=== PATIENT | male | born 1965 | race Caucasian/White ===

== ENCOUNTER 2022-07-26 20:25 | Outpatient (CLI) | payer MEDICARE, SELFPAY | END 2022-07-26 20:26 | disposition home or self-care (01) | LOC: SLEEP 20:29 | PROVIDERS: Visit Provider Internal Medicine | DX: G47.33 Obstructive sleep apnea (adult) (pediatric) (principal) | CPT/HCPCS: 95811 ==

== ENCOUNTER 2024-02-23 10:47 | Outpatient (CLI) | payer MEDICARE, SELFPAY ==
[2024-02-23 11:30] LABS: Hematocrit 37.6 % (37.0-53.0); Mean Corpuscular HGB Conc 32 gm/dL (32-36); Mean Corpuscular Hemoglobin 29 pg (26-34); Mean Corpuscular Volume 92 fL (80-100); Platelet Count* 401 K/uL (140-440)
[2024-02-23 11:34] LABS: Slide Review Reflex No
== END 2024-02-23 10:48 | disposition home or self-care (01) ==
PROVIDERS: PCP Family Medicine; Visit Provider Family Medicine
DX: D68.61 Antiphospholipid syndrome (principal); I26.99 Other pulmonary embolism without acute cor pulmonale; Z79.01 Long term (current) use of anticoagulants
CPT/HCPCS: 36415; 85027

== ENCOUNTER 2024-06-22 15:42 | Outpatient (CLI) | payer MEDICARE, SELFPAY | END 2024-06-22 15:43 | disposition home or self-care (01) | LOC: AMB 07-05 09:04 | PROVIDERS: PCP Family Medicine; Visit Provider Internal Medicine | DX: S01.91XA Laceration without foreign body of unspecified part of head, initial encounter (principal); W26.9XXA Contact with unspecified sharp object(s), initial encounter; Y93.89 Activity, other specified; Y92.039 Unspecified place in apartment as the place of occurrence of the external cause | CPT/HCPCS: A0425; A0429 ==

== ENCOUNTER 2024-06-22 15:59 | Emergency (ER) | payer MEDICARE, SELFPAY ==
--- OUTSIDE RECORDS SUMMARY | 2024-06-22 16:01 | XMS_ITS | Patient Health Record ---
Author Organization [facility] Address [address] [place] [address] [address] [place] [address] Care Team Providers Care Injection Press Operator Name Role Phone Trang Escamilla Primary Care Provider Surya Jimenez Unavailable [phone] Alie SCALES, [facility] Unavailable Unavailable Allergies No Known Allergies Reason For Referral No Information Medications Medication SIG (Take, Route, Fr equency, Duration) Notes Start Date End Date Status Gabapentin 300 MG 2 capsules Orally Th ree times a day Active Lisinopril Active Warfarin Sodium Acti ve Aspirin Active Social History Tobacco Use: Social History Observation Description Date Details (start date - stop date) Never Smoker NA - NA Tobacco Use/Smoking: Question Answer Notes Are you a nonsmoker Alcohol Screen Question Answer Notes Did you have a drink containing alcohol in the p ast year? No Points 0 Interpretation Negative Problems Problem Type SNOMED Code ICD Code Onset Dates Problem Status W/U Status Risk Notes Problem Chronic pain (64489870) Other chronic pain (G89.29) Active confirmed Problem Lumbar radiculopathy (684408794) Radiculopath y, lumbar region (M54.16) Active confirmed Plan Of Treatment No Information Insurance Providers Payer Name Payer Address Payer Phone Subscriber Number Group Number Insured Name Patient Relationship to Insured Coverage Start Date Coverage End Date Medicare Part [employer] 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
--- OUTSIDE RECORDS SUMMARY | 2024-06-22 16:01 | XMS_ITS | Data Portability ---
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 I reviewed the reason for visit, goals to achieve, medical and personal history, as well as performing a physical examination. This is documented in the electronic health record. I reviewed the pathophysiology of the sleep apnea disorder, potential contributing and risk factors as well as treatment options to address their complaints. I reviewed their most current sleep study documentation. I also reviewed treatment options to address obstructive sleep apnea with an oral appliance and self-management strategies to improve sleep. We touched on CPAP use and focused on the benefits of an oral appliance to supplement the CPAP. Given the severity of the sleep apnea, I do believe that an oral appliance is reasonable treatment option that will improve her obstructive sleep apnea and snoring. Today, we discussed risks and benefits of oral appliances. Informed consent and cost of care was reviewed both verbally and in written form. We did begin the fabrication process today for a custom fit Dorsal oral sleep appliance. [email or web address] Not available 12/06/2022 09:41:53 01/13/2023 01/13/2023 Patient was seen today for follow-up and insertion of a mandibular advancement (Somnomed [place] Advanced Elite) intraoral appliance. Diagnosis and contributing factors were reviewed. Questions were answered. Self-management and home exercise techniques were reviewed. Today the intraoral appliance was fit to patient comfort. Specifically, no adjustments were necessary. A morning transcribing machine operator was fabricated today and instructions of use discussed in detail. Kan will monitor sleep quality and daytime energy levels over the next few weeks. I recommended follow up in 5 weeks after his trip. I discussed that it may be reasonable to obtain a panoramic imaging in follow up to evaluate the dento-osseous structures. A panoramic imaging will be obtained in follow up. Instructions on proper use and care were discussed/reviewed both written and verbally. I suggested that (s)he uses the appliance 20-30 minutes before bed time, as a way to promote nasal breathing if possible. Potential side effects were reviewed. The patient was advised to discontinue oral appliance use should they experience untoward side effects or be unable to return for follow-up care. The patient was advised to return in 4 weeks to reassess their progress and continue their treatment plan as previously outlined. History today was obtained from the patient. The patient has 3 diagnoses they would like to address. Their symptoms are unchanged. This case is moderate complexity because of limited diagnosis and chronic nature. Data reviewed included sleep study. Risk of complications include monitoring for complications of treatment were discussed. Today time spent may have included a review of past records, history taking, review of diagnoses, contributing factors, treatment plan, diagnostic testing, prognosis, expectations, risks and complications of treatment/no treatment, discussions with other providers and completing documentation was 35 minutes. Not available 01/15/2023 07:47:32 02/22/2023 02/22/2023 Today I reviewed the diagnosis, contributing factors and treatment options. I reviewed and reinforced continued use of self care and home exercises. I encouraged daily home care use which may consist of heat and ice compresses, oral habit reduction and relaxation techniques. The intraoral appliance was adjusted to patient comfort. Specifically the device was titrated 20 turns on each side. At this position the appliance is still 1 mm behind edge to edge position. I believe the appliance may need further titration before treatment is optimised. The appliance has midline aligned at this position. Kan will continue to monitor sleep quality, jaw symptoms at this current position. I recommended to watch for dental symptoms like bite changes, teeth pain at this current position. The morning transcribing machine operator was checked for fit and comfort. I recommended regular use of the morning transcribing machine operator. If mouth breathing continues to be an issue, using elastics may be considered in follow up. We discussed follow up in 4-6 weeks or sooner if needed. History today was obtained from the patient. The patient has 3 diagnoses which we are addressing. Their symptoms are improving. This case is low complexity because of limited diagnoses and chronic nature. Risk of complications include monitoring for complications of treatment were discussed. Today time spent may have included a review of past records, history taking, review of diagnoses, contributing factors, treatment plan, diagnostic testing, prognosis, expectations, risks and complications of treatment/no treatment, discussions with other providers and completing documentation was 25 minutes. I suggested that (s)he return for follow-up care in 4-6 weeks. Not available 02/25/2023 16:36:13 03/23/2023 03/23/2023 Today I reviewed the diagnosis, contributing factors and treatment options. I reviewed and reinforced continued use of self care and home exercises. I encouraged daily home care use which may consist of heat and ice compresses, oral habit reduction and relaxation techniques. The intraoral appliance was adjusted to patient comfort. Specifically 20 turns titration was completed on both sides. The appliance is at 5 mm position on both sides. I recommended regular use of the morning transcribing machine operator. I reviewed the sleep study documentation with Kan today and believe that he may be close to treatment optimization. Due to improvement in dry mouth, I believe use of elastics may be deferred. Kan will monitor his sleep quality, number of awakenings, snoring and apneic episodes and daytime energy levels with the current titration. I recommended follow up in 4-6 weeks. History today was obtained from the patient. The patient has 3 diagnoses which we are addressing. Their symptoms are improving. This case is low complexity because of limited diagnoses and chronic nature. Risk of complications include monitoring for complications of treatment were discussed. Today time spent may have included a review of past records, history taking, review of diagnoses, contributing factors, treatment plan, diagnostic testing, prognosis, expectations, risks and complications of treatment/no treatment, discussions with other providers and completing documentation was 30 minutes. I suggested that (s)he return for follow-up care in 4-6 weeks. Not available 03/23/2023 11:52:21 05/11/2023 05/11/2023 Today I reviewed the diagnosis, contributing factors and treatment options. I reviewed and reinforced continued use of self care and home exercises. I encouraged daily home care use which may consist of heat and ice compresses, oral habit reduction and relaxation techniques. The intraoral appliance did not require additional adjustment based on patient report of sleep improvement. The appliance is at 5 mm position on both sides. No adjustments were made to the appliance today. Kan is effectively wearing a mandibular advancement oral appliance. No additional adjustments to the appliance are believed to be necessary as (s)he feels that the use of a mandibular advancement appliance has improved sleep quality, daytime tiredness and subjective report of snoring. At this time I've asked them to contact their sleep physician to consider updating a PSG/HST to objectively verify the effectiveness of the appliance. I've suggested that (s)he follow-up with me to review the results of the study and determine the need for additional appliance adjustment at that time. Should apnea be sufficiently resolved we will at that time begin a long--term follow-up schedule while we monitor for jaw symptoms and/or changes in occlusion. Kan agrees with the plan. History today was obtained from the patient. The patient has 3 diagnoses which we are addressing. Their symptoms are significantly improved. This case is moderate complexity because of multiple diagnoses with chronic symptoms. Risk of complications include monitoring for complications of treatment were discussed. Today time spent may have included a review of past records, history taking, review of diagnoses, contributing factors, treatment plan, diagnostic testing, prognosis, expectations, risks and complications of treatment/no treatment, discussions with other providers and completing documentation was 35 minutes. I suggested that (s)he return for follow-up care in 2-3 months. Not available 05/12/2023 22:28:23 Plan of Treatment Reminders Order Date Submit Date Provider Last Modified By Organization Details Last Modified Time Details Appointments None recorded. Lab None recorded. Referral sleep medicine referral - Please contact patient for a follow up sleep study with MAD 2022 023 [email or web address] 3 Usman Monreal MD, [address], [place], [address], 3 14:04:00 Procedures None recorded. Surgeries None recorded. Imaging XR, orthopantog deni 2022 023 [place], [address], [address], [place], [address], 3 07:55:28 Medication Orders None recorded. Patient TargetsNo targets recorded. Patient InstructionsNo instructions recorded. Reason for Referral Sleep Medicine Referral for Sleep apnea Kindly consider sleep study to evaluate effectiveness of MAD. Please contact patient for a follow up sleep study with MAD Referring Physician: Mimi Martinez, Pain Management, Encounter Date: 05/11/2023 Results Created Date Observation Date Name Description Value Unit Range Abnormal Flag Note LastModifiedBy Organization Detail LastModifiedTime 01/16/20 23 XR, ortho panto gram No observ ation record ed. [email or web address] [facility] [address], [place], [address], 01/15/2023 07:53:38 Result Notes None recorded. Problems Name Problem SNOMED Code Status Onset Date Resolution Date Notes Provider Name and Address Organization Details Recorded Time Sleep apnea 61880300 Active 2022 AHI 7, RDI 11.4 lowest O2 desaturat ion 79% per split-nig ht PSG 3 MIMI MARTINEZ BDS,MS [address], [place], [address], 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 3 07:48:41 Problem Notes None recorded. Procedures Surgical History Date Name Laterality Status Provider Name and Address Organization Details Recorded Time 01/14/20 23 Oral appliance therapy for sleep apnea [facility] 01/13/2023 10:39:08 06/13/19 18 excision of vein [facility] 12/06/2022 12:49:37 06/13/19 18 grafting of vein with patch [facility] 12/06/2022 12:51:13 06/13/19 16 replacement of extracranial ventricular shunt [facility] 12/06/2022 12:52:22 06/13/19 14 Amputation of lower leg [facility] 12/06/2022 12:49:04 Imaging Results Imaging Date Name Status LastModified by Organization Details LastModified Time 01/15/2023 XR, orthopantogram completed [place] [address], [place], [address], 01/15/2023 07:53:38 Procedure Notes None recorded. Medical Equipment None Reported. Allergies Allergen ID Allergen Name Allergen Category Reaction Reaction Severity Criticality Documentation Date Start Date Code Code System Note Provider Name and Address Organization Details Recorded Time 79434 aspirin medicatio n Not available Not available Not available 12/06/2022 1191 RxNorm Sania Tenoriocristian [facility] 3 12:42:10 97830 lisinopri l medicatio n Not available Not available Not available 02/22/2023 17609 RxNorm Mi Damico [facility] 3 11:12:23 Medications Name Sig Start Date Stop Date Status Note LastModified by Organization Details LastModified Time atorvastatin 40 mg tablet active Not Available Not Available Not Available warfarin 7.5 mg tablet active Not Available Not Available Not Available azathioprine 50 mg tablet active Not Available Not Available Not Available clopidogrel 75 mg tablet active Not Available Not Available Not Available famotidine 20 mg tablet active Not Available Not Available Not Available metformin 1,000 mg tablet active Not Available Not Available Not Available warfarin 5 mg tablet active Not Available Not Available Not Available gabapentin 300 mg capsule active Not Available Not Available Not Available hydrochlorothiazide 25 mg tablet active Not Available Not Available Not Available hydroxychloroquine 200 mg tablet active Not Available Not Availabl e Not Available enoxaparin 80 mg/0.8 mL subcutaneous syringe active Not Available Not Available Not Available fenofibrate nanocrystallized 145 mg tablet active Not Available Not Availabl e Not Available Jardiance 10 mg tablet active Not Available Not Available Not Available Vitals Date Recorded Body height Provider Name an d Address Organization Details Last Updated DateTime 03/23/2023 165.1 cm Jose Dunn [facility] 03/23/2023 11:00:28 Date Recorded Body height Heart rate Systolic blood pressure Diastolic blood pressure Provider Name and Address Organization Details Last Updated DateTime 05/11/2023 165.1 cm 47 /min 143 mm[Hg] 81 mm[Hg] Sania Robertson [facility] 05/11/2023 11:02:56 Date Recorded Body height Body mass index (BMI) Body weight Heart rate Systolic blood pressure Diastolic blood pressure Provider Name and Address Organization Details Last Updated DateTime 3 165.1 cm 31.6 kg/m2 82173.5 5 g 89 /min 149 mm[Hg] 88 mm[Hg] Sania Robertson [facility] 3 12:42:59 Date Recorded Body height Heart rate Systolic blood pressure Diastolic blood pressure Provider Name and Address Organization Details Last Updated DateTime 01/13/2023 165.1 cm 86 /min 120 mm[Hg] 82 mm[Hg] Sania Robertson [facility] 01/13/2023 10:38:08 Date Recorded Body height Body mass index (BMI) Body weight Heart rate Systolic blood pressure Diastolic blood pressure Provider Name and Address Organization Details Last Updated DateTime 3 165.1 cm 31.6 kg/m2 71875.5 5 g 57 /min 151 mm[Hg] 90 mm[Hg] Mi Damico [facility] 3 11:11:48 Social History Question Answer Notes LastModified by Organizat ion Details LastModified Time Tobacco Smoking Status Never Smoker Sania Bensonquyen [place], [place] - [facility] 12/06/2022 12:47:48 What Is Your Level Of Alcohol Consumption? None [email or web address] Information not available 12/06/2022 What Is Your Level Of Caffeine Consumption? Occasional Information not available 12/06/2022 Are You Currently Employed? No Disabled [email or web address] Information not available 12/06/2022 What Type Of Diet Are You Following? REGULAR [email or web address] Information not available 12/06/2022 What Is Your Relationship Status? [email or web address] Information not available 12/06/2022 Sex: Unknown Functional Status Question Answer Note LastModified by Organizat ion Details LastModified Time What is your exercise level? Occasional [email or web address] Information not available 12/06/2022 Mental Status None recorded. Family History Relationship Description Onset Age of this Age Resolved Age Notes LastModified by Organization Details LastModified Time Father Sleep apnea [email or web address] Not avail able 12/06/2022 13:24:43 Mother Arthritis [email or web address] Not availab le 12/06/2022 13:25:01 Mother Diabetes mellitus [email or web address] Not available 2022 13:25:09 Mother Heart disease Not available 2022 13:25:21 Medical History Condition Response Coronary Artery Disease N Gout N Other N Chronic fatigue syndrome N Hyperthyroidism N Premenstrual syndrome (PMS) N MRSA N Head Trauma/Injury N Emphysema N Irritable bowel syndrome N Glaucoma N Lung Disease N COPD N Hypothyroidism N Depression N Pneumonia N Pacemaker N Orthopedic Problems Y Obstructive Sleep Apnea Y Anxiety Disorder N Autoimmune disease Y Muscle, Joint, or Bone Problems Y Vision or Eye Problems N Arthritis Y Serious Illness or Injuries N Acid Reflux (GERD) Y Cancer N Stroke N Eating disorder N Neck Injury N Back Injury N High Cholesterol Y History of chemotherapy N Neurologic Disorder N Liver Disease N Organ Transplant N Rheumatoid Arthritis N Headaches N Fibromyalgia N Kidney Disease N Allergies/Hayfever Y Post traumatic stress disorder (PTSD) N Parkinson's Disease N Migraines N Thyroid Problems N Brain Tumors N Anemia Y Multiple Sclerosis N Immune System Disorder N Meningitis N Pancreatic disease N Heart Attack ([place]) N Stomach Ulcers N Back pain N Diabetes Y Bleeding Disorder N Seizures/Epilepsy N Sjogren's syndrome N Mental Health Concerns N Tuberculosis N AIDS/HIV N History of radiation therapy N Hyperlipidemia N Dementia N Asthma N Physical or sexual abuse N Substance Abuse N Peripheral Vascular Disease N Psoriasis N Reflux/GERD N Vertigo N Sleep Disorder Y GERD/Reflux N Aneurysm N Hepatitis N Heart Disease N Neuropathy Y Pulmonary Embolism N Hypertension Y Osteoporosis N Immunizations Vaccine Type Date Status Note Provider Nam e and Address Organization Details Recorded Time Influenza, [place] 03/13/2022 completed NONA Ferrari - [facility] 12/06/2022 13:28:19 Past Encounters Encounter ID Performer Location Encounter Start Date Encounter Closed Date Diagnosis/Indication Diagnosis SNOMED-CT Code Diagnosis ICD10 Code Diagnosis Note [id number] Efrem Negrete DDS, [place] [address] [place] [address] 12/06/2022 12:15:28 12/06/2022 14:44:51 Obstructive sleep apnea syndrome 50581080 G47.33 Snoring 73225638 R06.83 [id number] MIMI MARTINEZ BDS,MS [place] [address] [place] [address] 01/13/2023 10:09:23 01/13/2023 11:13:38 Sleep apnea 22739606 G47.33 AHI 7, RDI 11.4 lowest O2 desaturati on 79% per split-nigh t PSG 07/24/2022 Snoring 13286497 R06.83 Bilateral temporomandibular joint articular disc disorder 6554142388 0486654 M26.633 Bilateral TMJ disc displaceme nt per historyRul e out bilateral TMJ DJD [id number] MIMI MARTINEZ BDS,MS [place] [address] [place] [address] 02/22/2023 11:02:11 02/22/2023 11:42:04 Bilateral temporomandibular joint articular disc disorder 8996495584 8738039 M26.633 Bilateral TMJ disc displaceme nt per historyRul e out bilateral TMJ DJD Sleep apnea 66691229 G47 .33 AHI 7, RDI 11.4 lowest O2 desaturati on 79% per split-nigh t PSG 07/24/2022 Snoring 18427097 R06.83 [id number] ESAU AMEZCUAS,MS [place] [address] [place], [place] [address] 03/23/2023 10:51:59 03/23/2023 11:26:51 Bilateral temporomandibular joint articular disc disorder 3576891366 0302150 M26.633 Bilateral TMJ disc displaceme nt per historyRul e out bilateral TMJ DJD Snoring 83178896 R06.83 Sleep apnea 96612471 G47 .33 AHI 7, RDI 11.4 lowest O2 desaturati on 79% per split-nigh t PSG 07/24/2022 [id number] MIMI MARTINEZ BDS,[place] [address] [place] [address] 05/11/2023 10:53:56 05/11/2023 11:29:43 Sleep apnea 40389829 G47.33 AHI 7, RDI 11.4 lowest O2 desaturati on 79% per split-nigh t PSG 07/24/2022 Snoring 72793575 R06.83 Bilateral temporomandibular joint articular disc disorder 2625337163 2576199 M26.633 Bilateral TMJ disc displaceme nt per historyRul e out bilateral TMJ DJD Health Concerns Section Related Observation LastModified by Organization Detai ls LastModified Time None Recorded Concern Status LastModified by Organization Details LastModified Time None Recorded Advance Directives Directive None Recorded Payers Encounter Date Sequence Insurance Name Policy Number Policy Red[place] Covered Member ID [place] Member ID Guarantor Name 12/06/2022 1 [place] [employer] Christiano R Nerud [id number] 4 Christiano Nerud 01/13/2023 1 [place] [employer] Christiano R Nerud [id number] 4 Christiano Nerud 02/22/2023 1 [place] [employer] Christiano R Nerud [id number] 4 Christiano Nerud 03/23/2023 1 [place] [employer] Christiano R Nerud [id number] 4 Christiano Nerud 05/11/2023 1 [place] [employer] [facility] Christiano Johns [id number] 4 Christiano Johns Notes Date Note Type Note Provider Name and Address Organization Details Recorded Time 12/06/2022 text/html Sleep ApneaRepor sandrine bypatient.Severity/stat us:mild; severity of apnea: AHI=13; date of last [id number] 3; lowest oxygen saturation <79% 79 Onset/Timing:long standing; progressively worse over last 3years Prior Historyhypertension;fam celia history of sleep disorder temporomandibular joint symptoms(normal) pain in the jaw; not grinding teeth Interference:frequent sore throat;morning tiredness/fatigue;limit s daytime activities;loud snoring Context:lack of adequate sleep;recent weight gain (more than 10 pounds) Alleviating factors:nothing gives relief Aggravating factors:worse with excess fatigue; worse with certain sleeping positions Associated Symptoms:drip or drainage down throat from above;poor concentration Prior opinionpulmonology Prior Tests:home sleep study Prior Treatmentweight loss program Patient presents today for evaluation of the possible use of a mandibular advancement oral appliance to address their {{upper airway resistance mild obstructive sleep apnea* moderate obstructive sleep apnea severe obstructive sleep apnea}} {{and snoring*}}. Patient has {{previously not treated* trialed CPAP trialed CPAP and was unable to tolerate it trialed oral appliance therapy}}. Today their Austin Sleepiness Scale score was a {{0 1 2 3 4 5 6 7 8 9 1 0 11 12 13 14 15 16 17 18 19 20 21}}. The patient is predominantly a {{side* back stomach}} sleeper. There is {{no history of TMD related symptoms including jaw pain, jaw joint noises or difficulty with mouth opening* a known history of TMJ symptoms including jaw joint noises a known history of TMJ symptoms including jaw joint noises and jaw pain}}. There is {{no awareness* awareness}} of clenching and/or grinding of their teeth.Kan was referred by Dr. Monreal for his mild sleep apnea. Kan was diagnosed with Lupus in 2011 . Kan has noticed that he has had an issue with snoring for the last 5 years and has gotten worse the last 3 years, his also snores but her CAROL is untreated. Efrem Negrete DDS, MS [address] [facility] [address], [place], [address], [place] [facility] 12/06/2022 15:55:09 01/13/2023 text/html Sleep ApneaRepor sandrine bypatient.Severity/stat us:mild; severity of apnea: AHI=7; date of last [id number]; respiratory disturbance index (RDI)= 11.4; lowest oxygen saturation <79% 79 Onset/Timing:long standing; progressively worse over last 3years Prior Historyhypertension;fam celia history of sleep disorder temporomandibular joint symptoms(normal) pain in the jaw; not grinding teeth Interference:frequent sore throat;morning tiredness/fatigue;limit s daytime activities;loud snoring Context:lack of adequate sleep;recent weight gain (more than 10 pounds) Alleviating factors:relief with using pillows to prop up at night;no relief by changing position Aggravating factors:worse with excess fatigue; worse with certain sleeping positions Associated Symptoms:drip or drainage down throat from above;poor concentration Prior opinionpulmonology Prior Tests:home sleep study Prior Treatmentweight loss program Patient presents today for insertion of a {{mandibular stabilization maxillary stabilization repositio des mandibular advancement (Somnomed Trish Advanced Elite)* mandibular advancement (Somnomed Air/Dorsal) mandibular advancement (Somnomed [place]) Swati Elevate 9A Swati Elevate 4A Panthera Classic}} oral appliance. They note {{no changes in* improved worsening} } symptoms which along with prior data was reviewed, updated and documented in the patient history of present illness. (S)he describes {{compliance* partial compliance non-complian ce}} with home self care as previously recommended. Kan is Dr. Negrete's patient seeing Dr. Martinez for the first time for the insertion of sleep appliance. Kan has Mild CAROL with AHI 7/hr, RDI 11.4 per split-night PSG 07-26-2022 MIMI MARTINEZ BDS,MS [id number] [facility] [address], [place], [address], [place] [facility] 01/15/2023 07:55:32 02/22/2023 text/html Sleep ApneaRepor sandrine bypatient.Severity/stat us:mild; severity of apnea: AHI=7; date of last [id number] 3; respiratory disturbance index (RDI)= 11.4; lowest oxygen saturation <79% 79 Onset/Timing:long standing; progressively worse over last 3years Prior Historyhypertension;fam celia history of sleep disorder temporomandibular joint symptoms(normal) pain in the jaw; not grinding teeth Interference:morning tiredness/fatigue;limit s daytime activities;snoring with apnea Context:lack of adequate sleep Alleviating factors:relief with using pillows to prop up at night;no relief by changing position Aggravating factors:worse with excess fatigue; worse with certain sleeping positions Associated Symptoms:no morning headache; likelihood of falling asleep during the day while sitting and reading 0; likelihood of falling asleep during the day while sitting inactive in a public place 1; likelihood of falling asleep during the day as passenger in car for extended time 1; likelihood of falling asleep during the day while lying down to rest in the afternoon 2; likelihood of falling asleep during the day while sitting and talking to someone 0; likelihood of falling asleep during the day while sitting quietly after lunch (no alcohol) 1; likelihood of falling asleep during the day in a car while stopped in traffic 1 Prior opinionpulmonology Prior Tests:home sleep study Prior Treatmentweight loss program Patient presents today for follow-up. (S)he is {{effectively using* using struggling to use not using}} the mandibular advancement oral appliance. They note {{no changes in* improved worsening} } symptoms which along with prior data was reviewed, updated and documented in the patient history of present illness. Subjectively they believe the appliance to be {{very effective effective* pa rtially effective non-effective }} in improving sleep quality. (S)he recognizes {{improved* unchanged}} daytime tiredness and {{improvement* no improvement}} in restorative sleep. (S)he {{denies has mild* has significant}} side effects {{including jaw pain including bite changes including aggravation of a preexisting TMD dry mouth#}}. {{(S)he is using the morning bite transcribing machine operator as recommended* (S)he is not using the morning bite transcribing machine operator as recommended}}. Adjustments to the oral appliance are {{believed to be necessary* not felt necessary}}. Kan is present today for his first follow up with his CAROL Trish Advanced Elite. Kan presents today with his . He reports that he has noticed an improvement in sleep quality with the MAD. He has been using the appliance 100% of the nights in the last month. He denies adverse effects including jaw or tooth pain, bite changes etc. Kan reports that his has noticed an improvement with snoring although she can still hear him mildly snoring. Kan reports some improvement in daytime energy levels. He has been using the morning transcribing machine operator regularly up to 3 minutes on awakening. He wonders if he sleeps with his mouth open because of dry mouth on awakening. His Austin today is 4. Kan has Mild CAROL with AHI 7/hr, RDI 11.4 per split-night PSG 07-26-2022 MIMI MARTINEZ BDS,MS [address] [facility] [address], [place], [address], [facility] 02/25/2023 16:37:39 03/23/2023 text/html Sleep ApneaRepor sandrine bypatient.Severity/stat us:mild; severity of apnea: AHI=7; date of last [id number] 3; respiratory disturbance index (RDI)= 11.4; lowest oxygen saturation <79% 79 Onset/Timing:long standing; progressively worse over last 3years Prior Historyhypertension;fam celia history of sleep disorder temporomandibular joint symptoms(normal) pain in the jaw; not grinding teeth Interference:morning tiredness/fatigue;limit s daytime activities;snoring with apnea Context:lack of adequate sleep Alleviating factors:relief with using pillows to prop up at night;no relief by changing position Aggravating factors:worse with excess fatigue; worse with certain sleeping positions Associated Symptoms:no morning headache; likelihood of falling asleep during the day while sitting and reading 0; likelihood of falling asleep during the day while sitting inactive in a public place 1; likelihood of falling asleep during the day as passenger in car for extended time 1; likelihood of falling asleep during the day while lying down to rest in the afternoon 2; likelihood of falling asleep during the day while sitting and talking to someone 0; likelihood of falling asleep during the day while sitting quietly after lunch (no alcohol) 1; likelihood of falling asleep during the day in a car while stopped in traffic 1 Prior opinionpulmonology Prior Tests:home sleep study Prior Treatmentweight loss program Patient presents today for follow-up. (S)he is {{effectively using* using struggling to use not using}} the mandibular advancement oral appliance. They note {{no changes in improved* worsening} } symptoms which along with prior data was reviewed, updated and documented in the patient history of present illness. Subjectively they believe the appliance to be {{very effective effective* pa rtially effective non-effective }} in improving sleep quality. (S)he recognizes {{improved* unchanged}} daytime tiredness and {{improvement* no improvement}} in restorative sleep. (S)he {{denies* has mild has significant}} side effects {{including jaw pain* including bite changes including aggravation of a preexisting TMD}}. {{(S)he is using the morning bite transcribing machine operator as recommended* (S)he is not using the morning bite transcribing machine operator as recommended}}. Adjustments to the oral appliance are {{believed to be necessary not felt necessary*}}. Kan presents with his for follow up with [facility] for treatment of Obstructive sleep apnea. Kan reprots that he has been using the appliance regularly - 100% of the nights. He reports that he has noticed an improvement in sleep quality with the MAD. Kan reports that his has noticed an improvement with snoring although she can still hear him mildly snoring. Kan reports some improvement in daytime energy levels. He has been using the morning transcribing machine operator regularly up to 3 minutes on awakening. He denies adverse effects including jaw or tooth pain, bite changes etc. He reports dry mouth has improved since the last adjustment. He believes further adjustment of the appliance may be needed at this time.Austin score 8/24 Kan has Mild CAROL with AHI 7/hr, RDI 11.4 per split-night PSG 07-26-2022 MIMI MARTINEZ BDS,MS [id number] [facility] [address], [place], [address], [facility] 03/23/2023 11:53:09 05/11/2023 text/html Sleep ApneaRepor sandrine bypatient.Severity/stat us:mild; severity of apnea: AHI=7; date of last [id number] 3; respiratory disturbance index (RDI)= 11.4; lowest oxygen saturation <79% 79 Onset/Timing:long standing; progressively worse over last 3years Prior Historyhypertension;fam celia history of sleep disorder temporomandibular joint symptoms(normal) pain in the jaw; not grinding teeth Interference:morning tiredness/fatigue;limit s daytime activities;snoring with apnea Context:lack of adequate sleep Alleviating factors:relief with using pillows to prop up at night;no relief by changing position Aggravating factors:worse with excess fatigue; worse with certain sleeping positions Associated Symptoms:no morning headache; likelihood of falling asleep during the day while sitting and reading 0; likelihood of falling asleep during the day while sitting inactive in a public place 1; likelihood of falling asleep during the day as passenger in car for extended time 1; likelihood of falling asleep during the day while lying down to rest in the afternoon 2; likelihood of falling asleep during the day while sitting and talking to someone 0; likelihood of falling asleep during the day while sitting quietly after lunch (no alcohol) 1; likelihood of falling asleep during the day in a car while stopped in traffic 1 Prior opinionpulmonology Prior Tests:home sleep study Prior Treatmentweight loss program Patient presents today for follow-up. (S)he is {{effectively using* using struggling to use not using}} the mandibular advancement oral appliance. They note {{no changes in improved* worsening} } symptoms which along with prior data was reviewed, updated and documented in the patient history of present illness. Subjectively they believe the appliance to be {{very effective effective* pa rtially effective non-effective }} in improving sleep quality. (S)he recognizes {{improved* unchanged}} daytime tiredness and {{improvement* no improvement}} in restorative sleep. (S)he {{denies* has mild has significant}} side effects {{including jaw pain* including bite changes including aggravation of a preexisting TMD}}. {{(S)he is using the morning bite transcribing machine operator as recommended* (S)he is not using the morning bite transcribing machine operator as recommended}}. Adjustments to the oral appliance are {{believed to be necessary not felt necessary*}}. Kan is present today for his third follow up appointment since the delivery of his sleep apnea appliance ([place]). He reports that he has been using the MAD 100% of the nights. He reports an improvement in sleep quality since the last adjustment. Kan reports good daytime energy levels. reports that he has not been snoring since the last adjustment. He believes that the treatment is optimised at this time. Kan denies jaw pain, headaches or bite changes. He denies upcoming dental treatments. Austin score 8/24. Kan has Mild CAROL with AHI 7/hr, RDI 11.4 per split-night PSG 07-26-2022 MIMI MARTINEZ BDS,MS [id number] [facility] [address], [place], [address], [facility] 05/12/2023 22:29:17
--- OUTSIDE RECORDS SUMMARY | 2024-06-22 16:02 | XMS_ITS | Clinical Summary ---
Author Organization [employer] [facility] Address [place], [place] [address] Care Team Providers Care Biofuels Production Technician Name Role Phone Henry Mckeon MD Unavailable [phone] Other-None Unavailable Unavailable Jose Flower MD Unavailable [phone] Emmanuel Foy MD Unavailable Unavailable Christiano Jerome OD Unavailable [phone] Dg Del Castillo MD Unavailable [phone] Truong Carpio MD Primary Care Provider + Allergies Active Allergy Reactions Criticality Noted Date Comments Lisinopril Angioedema Medium 04/28/2012 Medications Calcium carbonate (OYSTERSHELL CALCIUM) 500 mg tablet Take 500 mg by mouth 2 times daily with meals. Active NATURAL SENIOR SUSTAINABILITY ADVISOR MULTIVITAMIN ORAL Take 1 tablet by mouth once daily in the evening. Active cholecalciferol (VITAMIN D) 1,000 unit capsule Take 1 capsule by mouth once daily. 0 11/08/19 14 Active glucose 4 g chewable tablet Take 4 g by mouth each time if needed for Blood Gluc < 60 g/dL. Active cyanocobalamin (VITAMIN B-12) 1,000 mcg tablet Take 1,000 mcg by mouth once daily. Active acetaminophen (TYLENOL EXTRA STRENGTH) 500 mg tablet Take 500 mg by mouth 4 times daily if needed. Max acetaminophen dose: 4000mg in 24 hrs. Active omeprazole (PRILOSEC) 20 mg Delayed-Release capsule Take 20 mg by mouth before breakfast. Active medication order composerIndications :Status post below-knee amputation of left lower extremity (HC) Wheelchair Replacement part: 2 front wheel Casters 2 inch diameter 1 unit 04/06/20 19 Active wheelchairIndicatio ns:Status post below-knee amputation of left lower extremity (HC) Wheelchair: Manual Wheelchair: Patient continues to need to use daily his manual wheelchair and the wheelchair will continue to need repairs for the next 12 months 1 Device 04/16/20 19 Active Cwbdu-2-YOX-EPA-Fis h Oil 1,000 mg (120 mg-180 mg) capIndications:Dysl ipidemia Take 1 capsule by mouth 2 times daily. 0 06/14/19 20 Active medication order composerIndications :Type 2 diabetes mellitus with diabetic neuropathy, without long-term current use of insulin (HC),Diabetic peripheral neuropathy (HC) Diabetic shoes Dl Orthotics and Prosthetics . 2 Each 07/22/19 22 Active atorvastatin (LIPITOR) 40 mg tabletIndications:D yslipidemia,PAD (peripheral artery disease) (HC) Take 1 Tablet (40 mg) by mouth at bedtime. 90 Tablet 3 09/28/19 24 Active clopidogreL (PLAVIX) 75 mg tabletIndications:P AD (peripheral artery disease) (HC) Take 1 Tablet (75 mg) by mouth once daily. 90 Tablet 3 09/28/19 24 Active FreeStyle Eve 3 Sensor for continuous blood glucose monitor (CGM)Indications:Ty pe 2 diabetes mellitus with diabetic neuropathy, without long-term current use of insulin (HC) To be used to read blood sugars, follow crisis intervention counselor directions. 6 Each 3 10/25/19 24 Active hydroxychloroquine (PLAQUENIL) 200 mg tabletIndications:S ystemic lupus erythematosus, unspecified SLE type, unspecified organ involvement status (HC) Take 1 Tablet (200 mg) by mouth once daily. 90 Tablet 1 12/01/19 24 Active azaTHIOprine (IMURAN) 50 mg tabletIndications:S ystemic lupus erythematosus, unspecified SLE type, unspecified organ involvement status (HC) TAKE 1 AND 1/2 TABLETS (75 MG) BY MOUTH ONCE DAILY IN THE MORNING. 135 Tablet 03/13/20 24 Active gabapentin (NEURONTIN) 300 mg capsuleIndications: Diabetic peripheral neuropathy (HC) Take 2-3 Capsules (600-900 mg) by mouth three times daily. Take 2 capsules in the morning, 2 capsule in the afternoon, and 3 capsules at bedtime 630 Capsule 3 04/25/20 24 Active famotidine (PEPCID) 20 mg tabletIndications:G astroesophageal reflux disease without esophagitis Take 1 Tablet (20 mg) by mouth at bedtime. 90 Tablet 3 04/25/20 24 Active fenofibrate nanocrystallized (TRICOR) 145 mg tabletIndications:D yslipidemia Take 1 Tablet (145 mg) by mouth once daily with a meal. 90 Tablet 3 04/25/20 24 Active hydroCHLOROthiazide 25 mg tabletIndications:E ssential hypertension Take 1 Tablet (25 mg) by mouth once daily. 90 Tablet 3 04/25/20 24 Active metFORMIN (GLUCOPHAGE) 1,000 mg tabletIndications:T ype 2 diabetes mellitus with diabetic neuropathy, without long-term current use of insulin (HC) Take 1 Tablet (1,000 mg) by mouth two times daily with meals. 180 Tablet 3 04/25/20 24 Active oxybutynin XL (DITROPAN XL) 5 mg CR tabletIndications:U rge incontinence Take 1 Tablet (5 mg) by mouth once daily. 30 Tablet 11 04/25/20 24 Active warfarin (COUMADIN) 5 mg tabletIndications:A nti-phospholipid syndrome (HC),Pulmonary embolism on left (HC),Anticoagulatio n monitoring, INR range 2-3,Acute deep vein thrombosis (DVT) of popliteal vein of right lower extremity (HC),Chronic atrial fibrillation (HC) Take by mouth 5 mg (5 mg x 1) every day in the evening OR as directed 91 Tablet 05/14/20 24 Active Active Problems Problem Noted Date Diagnosed Date History of DVT (deep vein thrombosis) 09/28/2023 Overview (09/28/2023): Right 07/1011 Congenital hydrocephalus 09/28/2023 Plantar fasciitis of right foot 09/28/2023 CAROL 07/26/2022 AHI- 7 08/31/2022 S/P ventriculoperitoneal shunt 03/16/2018 Overview (03/16/2018): 12/28/2013 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 Oxycodone 10mg #60 per month. Diagnosis: Below the knee amputation and in physical therapy. Pharmacy [facility]. Trang Escamilla DO .................... 11/14/2013 9:44 PM Anticoagulation monitoring, INR range 2-3 2013 GERD (gastroesophageal reflux disease) 4 Leukopenia 05/31/2013 Overview (09/12/2014): Chronic leukopenia and anemia from SLE ACP (advance care planning) 05/24/2013 Overview (05/24/2013): Patient has identified Health Care Agent(s): Yes Add Health Care Agents: Yes Health Care Agent(s): Primary Health Care Agent: Gosia Yo Relationship: sister Secondary Health Care Agent: Relationship: Phone: Conservator: Relationship: Phone: Guardian: Relationship: Phone: Patient has Advance Care Plan Documents (Health Care Directive, POLST): No, Pt has forms at home, yet to be completed. Patient has identified Specific Treatment Preferences: No Specific limits to treatment preferences NOT identified: ASSUME FULL TREATMENT. Pressure ulcer-right buttock 05/15/2013 PAD (peripheral artery disease) 05/15/2013 Overview (12/12/2017): 12/06/2017- Right femoral to above-knee popliteal artery bypass using reversed great saphenous vein, left lower extremity saphenous vein harvest. Dr. 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 Anti-phospholipid syndrome 09/28/2011 Overview (10/25/2013): Seen Hematology. Coumadin indefinitely. Systemic lupus erythematosus 08/03/2011 Overview (05/17/2012): Positive SIMÓN and anti DNA, lupus anticoagulant, PE and DVT 07/2011 Visual field defect, unspecified 07/23/2008 Resolved Problems Problem Noted Date Diagnosed Date Resolved Date Chronic atrial fibrillation 07/22/2021 02/14/2024 Somnolence 12/27/2013 01/10/2014 Encephalopathy acute 12/27/2013 014 Issue of repeat prescription 11/14/2013 11/14/2013 S/P debridement 08/13/2013 12/27/2013 Overview (08/13/2013): Left bka stump 08/13/2012 Gangrenous left foot s/p left BKA 07/03/2013 12/27/2013 Ischemia of toe 05/31/2013 12/27/2013 Diabetic foot ulcer 04/25/2013 12/24/19 16 Venous stasis 04/18/2012 12/24/2015 Overview (04/18/2012): Right > left. DVT and systemic causes ruled out. Compression stockings recommended. Encounter for long-term (cur rent) use of anticoagulants 08/01/2011 10/31/2013 Pulmonary embolism 07/31/2011 4 DVT of popliteal vein 07/31/20112013 Overview (07/31/2011): Right 07/1011 Acute deep vein thrombosis ( DVT) of popliteal vein of right lower extremity 07/31/2011 09/28/2023 Overview (12/19/2014): Right 07/1011 Shortness of breath 07/28/2011 12/28/19 14 Overview (07/28/2011): D dimer elevated Tachycardia 07/28/2011 12/27/2013 Abnormal EKG 07/28/2011 12/27/2013 Overview (07/28/2011): New t wave inversion II III AVF V4-6 07/28/2011 Abnormal liver function 07/28/201112/11 Overview (07/28/2011): New elevation of alk phos Pericarditis 07/11/2011 12/27/2013 Atelectasis 07/07/2011 12/27/2013 Chest pain, unspecified 07/05/201112/11 Overview (07/05/2011): Angiogram 07/05/2011 neg for acute Mi 205 stenosis Mid LAD 20% stenosis 1st diagonal EF 60% Pain in joint, lower leg 07/05/2011 Overview (07/05/2011): Left piraformis muscle pain taking ibufprofen 600 tid for 2 weeks Encounters Date Type Department Care Team Description 06/20/2024 10:30 AM BULB ASSEMBLER Orders Only [facility] [address] [place] [address] Lab, [facility] 06/20/2024 Anticoagulation (warfarin) [facility] [address] [place] [address] 1, [facility] Anticoagulation 06/20/2024 Travel 06/15/2024 Travel 06/07/2024 Telephone [facility] [address] [place] [address] DarrenteTruong gutierrez MD Form 06/07/2024 Telephone [facility] [address] [place] [address] Truong Carpio MD Form 05/18/2024 Anticoagulation (warfarin) [facility] [address] [place] [address] 1, [facility] Anticoagulation 05/17/2024 1:45 PM BULB ASSEMBLER Orders Only [facility] [address] [place] [address] Lab, [facility] Lab 05/16/2024 Travel 05/15/2024 Telephone [facility] [address] [place] [address] Truong Carpio MD 05/14/2024 Refill [facility] [address] [place] [address] Truong Carpio MD Refill Request (Warfarin) 05/12/2024 Travel 05/08/2024 Telephone [facility] [address] [place] [address] Truong Carpio MD Form (Authorization FOrm ) 04/26/2024 Telephone [facility] [address] [place] [address] Truong Carpio MD Form 04/25/2024 10:25 AM BULB ASSEMBLER Office Visit [facility] [address] [place] [address] Truong Carpio MD Hospital F/U (ANW, 03/16/24, vascular rt femoral); Diabetes; Immunization/Injectio n 04/25/2024 Telephone [facility] [address] [place] [address] Truong Carpio MD Anticoagulation (BPA fenofibrate/warfarin) 04/24/2024 Travel 04/24/2024 Telephone [facility] [address] [place] [address] Truong Carpio MD 04/23/[address] [facility] [address] [place] [address] Oetken, Trang Mesha, DO Form (INCIDENT REPORT) 04/19/2024 Telephone [facility] [address] [place] [address] Truong Carpio MD 04/18/2024 Anticoagulation (warfarin) [facility] [address] [place] [address] 1, [facility] Anticoagulation 04/17/2024 3:00 PM BULB ASSEMBLER Orders Only [facility] [address] [place] [address] Lab, [facility] 04/17/2024 Travel 04/14/2024 Travel 04/13/2024 Telephone [facility] [address] [place] [address] Truong Carpio MD Anticoagulation (Lab Orders ) 04/09/2024 11:00 AM CDT Office [place] [facility] [address] [place] [address] Luke Collado MD CV Vascular Est (1 month follow up; right fem above knee popliteal bypass with PTFE. U/S scheduled prior) 04/09/2024 9:18 AM CDT - 04/09/2024 11:59 PM CDT Hospital Encounter [facility] [address] [place] [address] Luke Collado MD [facility] PAD (peripheral artery disease) (HC) 04/08/2024 Travel 04/06/2024 Anticoagulation (warfarin) [facility] [address] [place] [address] 1, [facility] Anticoagulation 04/05/2024 9:45 AM CDT Orders Only [facility] [place] [address] [address] Lab, [facility] 04/05/2024 Travel 04/02/2024 Orders Only [facility] Scanner 1 scan: (1-Ord) [facility], INR, 04/02/2024 04/02/2024 Anticoagulation (warfarin) [facility] [address] [place] [address] 1, [facility] Anticoagulation (Chart update) 04/02/2024 Telephone [facility] [address] [facility] [place] [address] Truong Carpio MD Anticoagulation (Lab Clarification) 03/28/2024 Orders Only [facility] [address] [place] [address] Dg Del Castillo MD Lab (Order Update) 03/23/2024 Lab Requisition [facility] [phone] Sally Miner, SEED LABORATORY ASSISTANT from Last 3 Months Immunizations Name Administration Dates Next Due COVID-19 VACCINE SPIKEVAX (M ODERNA 50MCG/0.5ML) 12YO+ PFS 04/25/2024,09/28/2023,03/28/2023 COVID-19 vaccine (Moderna 100mcg/0.5mL) PF, MDV 09/18/2021,04/02/2021,08/06/2020,2020 COVID-19 vaccine (Moderna 50mcg/0.5mL) 12YO+ BIVALENT PF, MDV 05/28/2022 Hepatitis B (Adult) 04/19/2013,01/17/2013,2012 Human Papilloma Virus Vaccine 10/31/2013 INFLUENZA, IIV3 PF (AGE >= 6 MO) 04/25/2024 Influenza, IIV3 (Age >=3 years) 02/27/20 13,02/29/2012,03/24/2011,2009 Influenza, IIV4 02/22/2022,,02/14/2020,2017,03/17/2017,03/24/2016,02/19/2015,0 02/28/2014 Influenza, IIV4 (=>6mos) MDV 03/01/2019 Pneumococcal Poly,23-Valent (Pneumovax) 10/28/2011 Pneumococcal conj 13-Valent (Prevnar 13) 10/31/2013 Tdap 01/14/2022,10/28/2011 Tuberculin Skin Test, Unspecified 03/21/2024 Zoster (Shingrix-RZV, recombinant) 05/17/2018, Zoster (Zostavax-ZVL, live) 05/17/2018, 8 Family History Medical History Relation Name Comments Cancer Father d.59. unknown t ype Other Maternal Uncle LUPUS Diabetes Mother Hypertension Mother Other Mother arthritis/LUPUS Stroke Mother Relation Name Status Comments Father Maternal Uncle Mother Alive Social History Tobacco Use Types Packs/Day Years Used Date Smoking Tobacco: Never Passive Smoke Exposure: Past Smokeless Tobacco: Never Tobacco Cessation:Counseling Given: Yes Comments:Father smoked cigarettes Alcohol Use Standard Drinks/Week Comments No 0 (1 standard drink = 0.6 oz pur e alcohol) [facility] Utilities Answer Date Recorded Do you have trouble paying f or utilities (for example, heat, electricity, water, phone)? Yes 03/17/2024 PHQ-2 Answer Date Recorded PHQ-2 TOTAL SCORE 0 10/25/2023 Social Connections Answer Date Recorded Do you often feel lonely or isolated from those around you? 0 03/17/2024 Financial Resource Strain Answer Date R ecorded Difficulty of Paying Living Expenses 3 03/28/2023 Difficulty of Paying Living Expenses Not on file 03/28/2023 Food Insecurity Answer Date Recorded Do you worry your food will run out before you are able to buy more? 1 03/17/2024 Transportation Needs Answer Date Record ed Does lack of transportation keep you from medica l appointments? 1 03/17/2024 Does lack of transportation keep you from work, meetings or getting things that you need? 1 03/17/2024 Housing Stability Answer Date Recorded What is your housing situation today? 1 03/17/2024 Interpersonal Safety Answer Date Record ed Are you being hit, kicked, p ushed or yelled at (see row info)? No 03/17/2024 Interpersonal Safety Abuse 12 - 18 Not on file 03/17/2024 Interpersonal Safety Ambulatory Vulnerability No t on file 03/17/2024 Sex and Gender Information Value Date Recorded Sex Assigned at Male 11/21/2020 10:01 PM CDT Legal Sex Male 5:24 AM BULB ASSEMBLER Gender Identity Not on file Sexual Orientation Not on file Obstetrics History Last Filed Vital Signs Vital Sign Reading Time Taken Comments Blood Pressure 136/76 04/25/2024 10:20 AM BULB ASSEMBLER Pulse 78 04/25/2024 10:20 AM BULB ASSEMBLER Temperature 36.9 C (98.4 F) 04/25/2024 10:20 AM BULB ASSEMBLER Respiratory Rate 16 04/09/2024 10:23 AM CDT Oxygen Saturation 98% 04/25/2024 10:20 AM BULB ASSEMBLER Inhaled Oxygen Concentration - - Weight 89 kg (196 lb 3.4 oz) 03/20/2024 5:31 AM CDT Height 165.1 cm (5' 5) 03/16/2024 8:47 AM CDT Body Mass Index 32.65 03/16/2024 8:47 AM CDT Plan of Treatment Upcoming Encounters Date Type Department Care Team (Late st Contact Info) Description 06/28/2024 10:40 AM BULB ASSEMBLER Office Visit [facility] [address] [place], [place] [id number] Dg Del Csatillo MD [address] [facility] [address] [place] [address] 09/26/2024 10:25 AM CDT Office Visit [facility] [address] [place] [address] Truong Carpio MD [address] [place] [address] Health Maintenance Due Date Last Done Comments Pneumococcal series for age 50+ (3 of 3 - PCV20 or PCV21) 10/31/2018 10/31/2013, 10/28/2011 COVID-19 vaccine series ( season) 2024 04/25/2024, 09/28/2023, 03/28/2023, Additional history exists BMI (ht and wt on same day) for age 18+ 09/27/2024 09/28/2023, 08/23/2023, 09/27/2022, Additional history exists Depression screening for age 12+ 10/25/2024 10/26/2023, 10/26/2023, 10/25/2023, Additional history exists Fecal testing sDNA-FIT ([place] guard) for age 45-75 06/25/2025 06/25/2022 Lipids for age 45-75 09/27/2028 09/28/2023, 06/21/2022, 04/02/2021, Additional history exists Tetanus booster 01/15/2032 01/14/2022, 10/28/2011 HIV for age 15-65 Completed 07/03/2012 Hepatitis C screening for ag e 18-79 Completed 07/03/2012 Hepatitis B series for Diabetes Completed 04/19/2013, 01/17/2013, 10/16/2012 Zoster (shingles) series for age 50+ Completed 05/17/2018, 05/17/2018, 02/24/2018, Additional history exists Tdap Completed 01/14/2022, 10/28/2011 Influenza for age 50-64 Completed 04/25/20, 02/22/2022, 04/02/2021, Additional history exists Medical Devices Implanted Type Area Office Equipment Technician Device Identifier Shelf Expiration Date Model / Serial / Lot Shunt System 15cm Stra [id number] Nmtneuroscie - [id number] Implanted:Qty: 1 on 12/28/2013 at [facility] Right: [employer] Rita [id number]# / / [id number] Graft Vasc 6x40mm 60cm Propaten - [id number] Implanted:Qty: 1 on 03/16/2024 by Luke Collado MD at [facility] Right: [employer] 10/30/2026 [id number] / [id number] / Procedures Procedure Name Priority Date/Time Associated Diagnosis Comments PROTIME-INR Routine 06/20/2024 9:31 AM BULB ASSEMBLER Anti-phospholipid syndrome (HC) history of Pulmonary embolism Anticoagulation monitoring, INR range 2-3 PROTIME-INR Routine 05/17/2024 1:09 PM BULB ASSEMBLER Anti-phospholipid syndrome (HC) history of Pulmonary embolism Anticoagulation monitoring, INR range 2-3 UA W/ SEDIMENT EXAM REFLEXED PER CRITERIA Routine 04/25/2024 11:32 AM BULB ASSEMBLER Urge incontinence HEMOGLOBIN A1C MONITORING (POCT) Routine 04/25/2024 10:06 AM BULB ASSEMBLER Type 2 diabetes mellitus with diabetic neuropathy, without long-term current use of insulin (HC) PROTIME-INR Routine 04/17/2024 2:38 PM BULB ASSEMBLER Anti-phospholipid syndrome (HC) history of Pulmonary embolism Anticoagulation monitoring, INR range 2-3 US ARTERIAL LOWER EXTREMITY W ROMEO BILATERAL Routine 04/09/2024 10:22 AM CDT PAD (peripheral artery disease) (HC) PROTIME-INR Routine 04/05/2024 8:46 AM CDT Anti-phospholipid syndrome (HC) history of Pulmonary embolism Anticoagulation monitoring, INR range 2-3 Other specified transient cerebral ischemias Paroxysmal atrial fibrillation (HC) CBC WITH AUTO DIFFERENTIAL Routine 04/05/2024 8:46 AM CDT Systemic lupus erythematosus, unspecified SLE type, unspecified organ involvement status (HC) SCAN-LABORATORY REPORT 04/02/2024 12:00 AM CDT BASIC METABOLIC PANEL Routine 03/27/2024 8:17 AM CDT Anemia, unspecified Hypo-osmolality and hyponatremia HEMOGLOBIN Routine 03/27/2024 8:17 AM CDT Anemia, unspecified Hypo-osmolality and hyponatremia LIPID PANEL W REFLEX MEASURED LDL Routine 09/28/2023 10:07 AM CDT Dyslipidemia SDNA-FIT EXTERNAL (COLOGUARD) Routine 06/25/2022 7:30 AM BULB ASSEMBLER Screening for colon cancer EXPOSURE (BBF) RAPID HIV Routine 07/03/2012 2:24 PM BULB ASSEMBLER Needle Stick Injury EXPOSURE (BBF) ANTI HCV Routine 07/03/2012 2:24 PM BULB ASSEMBLER Needle Stick Injury from Last 3 Months or Most Recently Relevant to Health Maintenance Results * (ABNORMAL) PROTIME-INR [12922.0] - Standing Order (06/20/2024 9:31 AM BULB ASSEMBLER) Only the most recent of4 resultswithin the time period is included. INR 2.9(H) <1.3 06/20/2024 2:47 PM BULB ASSEMBLER [facility] PROTIME 34.0(H) 10.6 - 12.4 sec 06/20/2024 2:47 PM BULB ASSEMBLER [facility] Blood BLOOD SPECIMEN / Unknown [facility] / Unknown 06/20/2024 9:31 AM BULB ASSEMBLER 06/20/2024 9:31 AM BULB ASSEMBLER [facility] - 06/20/2024 2:47 PM BULB ASSEMBLER Therapeutic Range 2.0-3.0 for most anticoagulated patients 2.5-3.5 or 4.0 for high risk patients The INR is only used for patients on stable oral anticoagulant therapy. It makes no significant contribution to the diagnosis or treatment of patients whose Protime is prolonged for other reasons. INR results are increased when heparin levels exceed 1.0 U/mL, which corresponds to an aPTT >125 seconds if the patient is on UFH. us Truong Carpio MD HEMATOLOGY Final Re sult [facility] [address] [place] [address], [place] * UA W/ SEDIMENT EXAM REFLEXED PER CRITERIA (04/25/2024 11:32 AM BULB ASSEMBLER) COLOR YELLOW YELLOW [facility] APPEARANCE CLEAR CLEAR [facility] SPECIFIC GRAVITY 1.002 1.001 - 1.035 [facility] PH 7.0 5.0 - 8.0 [facility] GLUCOSE NEGATIVE NEGATIVE [facility] BILIRUBIN NEGATIVE NEGATIVE [facility] KETONES NEGATIVE NEGATIVE [facility] OCCULT BLOOD NEGATIVE NEGATIVE [facility] PROTEIN NEGATIVE NEGATIVE [facility] NITRITE NEGATIVE NEGATIVE [facility] LEUKOCYTE ESTERASE NEGATIVE NEGATIVE [facility] Urine URINE SPECIMEN / Unknown 04/25/2024 11:32 AM BULB ASSEMBLER 04/25/2024 11:33 AM BULB ASSEMBLER Truong Carpio MD URINE Final Re sult Performing Organization Address City/[facility]/ZIP Co de Phone Number [facility] [address] [place] [address], [place] [phone] [employer] [facility] [address] [place] [address] * (ABNORMAL) HEMOGLOBIN A1C MONITORING (POCT) (04/25/2024 10:06 AM BULB ASSEMBLER) POC HEMOGLOBIN A1C 7.0(H) <6.0 % OF TOTAL HGB [facility] Comment: Any point of care results exhibiting inconsistency with the patient's clinical status should be repeated using a different testing method. Blood BLOOD SPECIMEN / Unknown 04/25/2024 10:06 AM BULB ASSEMBLER 04/25/2024 10:07 AM BULB ASSEMBLER Truong Carpio MD CHEMISTRY Final Re sult Performing Organization Address [facility] Co de Phone Number [facility] [address] [place] [address], [facility] [address] [place] [address] * US ARTERIAL LOWER EXTREMITY W ROMEO BILATERAL (04/09/2024 10:22 AM CDT) Anatomical Region Laterality Modality LEGS Ultrasound 04/09/2024 9:52 AM CDT Narrative 04/09/2024 7:22 PM CDT VASCULAR ULTRASOUND REPORT CHRISTIANO JOHNS : 1965 Study Date: 04/09/2024 9:52:42 AM Age: 59 years Tech: Kelley Fernandez RVT Gender: M Referring MD: LUKE COLLADO Site: [facility] Study performed: Lower extremity duplex US, (bilateral), resting ROMEO, (right), TBI. Indication for study: Follow-up WELL PULLER HEAD/stent/bypass Study Quality: Good TECHNIQUE: Lower/upper extremity arteries were examined per exam protocol by duplex ultrasound, color-flow and spectral Doppler. Peak systolic velocities (PSV), Doppler waveform quality, velocity ratios and vessel size in cm, were documented at protocol specific sites. Physiologic data including segmental pressures, ankle/brachial index (ROMEO), digit PPG recordings, laser Doppler flowmetry, transcutaneous oximetry, and digit temperatures were documented at sites per exam protocol and test requirements. IMPRESSION: 1. Resting ankle-brachial index is severely reduced on the right at 0.45. 2. Toe-brachial index is severely reduced on the right at 0.26. 3. Patent right leg bypass. Monophasic waveforms in the tibial vessels indicative of runoff disease. 4. ABIs and TBI's on the right side have significantly decreased when compared to previous study. There is concern for possible outflow stenosis with the right leg bypass. COMPARISON: Compared to prior study 01/30/2024, RT ROMEO and TBIhave decreased and are now severely abnormal. RT CLINICAL RESOURCE DIRECTOR to distal SFA bypass graft is patent with elevated velosites in the distal SFA outflow. FINDINGS: LT BKA. Right toe/brachial index indicates severe range. +--------+ + + RIGHT Velocity cm/s Phasicity +--------+ + + CLINICAL RESOURCE DIRECTOR PRX 91 multiphasic +--------+ + + CLINICAL RESOURCE DIRECTOR DST 59 multiphasic +--------+ + + SFA DST 86 multiphasic +--------+ + + GABBY PRX 64 multiphasic +--------+ + + GABBY DST 60 multiphasic +--------+ + + WELL PULLER HEAD DST 45 monophasic +--------+ + + DPA 28 monophasic +--------+ + + +-------+ + + LEFT Velocity cm/s Phasicity +-------+ + + CLINICAL RESOURCE DIRECTOR PRX 74 multiphasic +-------+ + + CLINICAL RESOURCE DIRECTOR DST 74 multiphasic +-------+ + + PFA 119 monophasic +-------+ + + SFA PRX 0 occluded +-------+ + + SFA MID 0 occluded +-------+ + + SFA DST 0 occluded +-------+ + + Criteria: Stenosis V. Ratio Mild <50% <2.0 Moderate 50-74% > or = 2.0 Severe 75-99% > or = 4.0 Occluded 100% no detectable flow Pressures +-----+ +--------+ + RIGHT (mmHg) LEFT (mmHg) +-----+ +--------+ + Index 154 Brachial 159 +-----+ +--------+ + 0.45 72 WELL PULLER HEAD +-----+ +--------+ + 0.39 62 DPA +-----+ +--------+ + 0.26 42 Digit 1 +-----+ +--------+ + BYPASS GRAFT Patent, right graft type: CLINICAL RESOURCE DIRECTOR to distal SFA. +---------+ + +--------+-----+ RIGHT Velocity cm/s Phasicity Stenosis Ratio +---------+ + +--------+-----+ INFLOW 59 multiphasic +---------+ + +--------+-----+ PRX ANAST 54 multiphasic +---------+ + +--------+-----+ PRX GRAFT 59 multiphasic +---------+ + +--------+-----+ MID GRAFT 73 multiphasic +---------+ + +--------+-----+ DST GRAFT 56 multiphasic +---------+ + +--------+-----+ DST ANAST 43 multiphasic +---------+ + +--------+-----+ OUTLFOW 86 multiphasic +---------+ + +--------+-----+ Hakeem Arredondo MD. Electronically signed on 04/09/2024 7:22:47 PM This study was performed and interpreted by a service accredited by the Intersocietal Accreditation Commission (IAC/Vascular), [email or web address] Report generated by [employer]. Final Procedure Note Hakeem Arredondo MD - 04/09/2024 VASCULAR ULTRASOUND REPORT CHRISTIANO JOHNS : 1965 Study Date: 04/09/2024 9:52:42 AM Age: 59 years Tech: Kelley Fernandez [facility] Gender: M Referring MD: LUKE COLLADO Site: [facility] - [facility] Study performed: Lower extremity duplex US, (bilateral), restingABI, (right), TBI. Indication for study: Follow-up WELL PULLER HEAD/stent/bypass Study Quality: Good TECHNIQUE: Lower/upper extremity arteries were examined per exam protocol by duplexultrasound, color-flow and spectral Doppler. Peak systolic velocities(PSV), Doppler waveform quality, velocity ratios and vessel size in cm,were documented at protocol specific sites. Physiologic data includingsegmental pressures, ankle/brachial index (ROMEO), digit PPG recordings,laser Doppler flowmetry, transcutaneous oximetry, and digit temperatureswere documented at sites per exam protocol and test requirements. IMPRESSION: 1. Resting ankle-brachial index is severely reduced on the right at0.45. 2. Toe-brachial index is severely reduced on the right at 0.26. 3. Patent right leg bypass. Monophasic waveforms in the tibial vesselsindicative of runoff disease. 4. ABIs and TBI's on the right side have significantly decreased whencompared to previous study. There is concern for possible outflow stenosiswith the right leg bypass. COMPARISON: Compared to prior study 01/30/2024, RT ROMEO and TBIhave decreased and arenow severely abnormal. RT CLINICAL RESOURCE DIRECTOR to distal SFA bypass graft is patent withelevated velosites in the distal SFA outflow. FINDINGS: LT BKA. Right toe/brachial index indicates severe range. +--------+ + + RIGHT Velocity cm/s Phasicity +--------+ + + CLINICAL RESOURCE DIRECTOR PRX 91 multiphasic +--------+ + + CLINICAL RESOURCE DIRECTOR DST 59 multiphasic +--------+ + + SFA DST 86 multiphasic +--------+ + + GABBY PRX 64 multiphasic +--------+ + + GABBY DST 60 multiphasic +--------+ + + WELL PULLER HEAD DST 45 monophasic +--------+ + + DPA 28 monophasic +--------+ + + +-------+ + + LEFT Velocity cm/s Phasicity +-------+ + + CLINICAL RESOURCE DIRECTOR PRX 74 multiphasic +-------+ + + CLINICAL RESOURCE DIRECTOR DST 74 multiphasic +-------+ + + PFA 119 monophasic +-------+ + + SFA PRX 0 occluded +-------+ + + SFA MID 0 occluded +-------+ + + SFA DST 0 occluded +-------+ + + Criteria: Stenosis V. Ratio Mild <50% <2.0 Moderate 50-74% > or = 2.0 Severe 75-99% > or = 4.0 Occluded 100% no detectable flow Pressures +-----+ +--------+ + RIGHT (mmHg) LEFT (mmHg) +-----+ +--------+ + Index 154 Brachial 159 +-----+ +--------+ + 0.45 72 WELL PULLER HEAD +-----+ +--------+ + 0.39 62 DPA +-----+ +--------+ + 0.26 42 Digit 1 +-----+ +--------+ + BYPASS GRAFT Patent, right graft type: CLINICAL RESOURCE DIRECTOR to distal SFA. +---------+ + +--------+-----+ RIGHT Velocity cm/s Phasicity Stenosis Ratio +---------+ + +--------+-----+ INFLOW 59 multiphasic +---------+ + +--------+-----+ PRX ANAST 54 multiphasic +---------+ + +--------+-----+ PRX GRAFT 59 multiphasic +---------+ + +--------+-----+ MID GRAFT 73 multiphasic +---------+ + +--------+-----+ DST GRAFT 56 multiphasic +---------+ + +--------+-----+ DST ANAST 43 multiphasic +---------+ + +--------+-----+ OUTLFOW 86 multiphasic +---------+ + +--------+-----+ Hakeem Arredondo MD. Electronically signed on 04/09/2024 7:22:47 PM This study was performed and interpreted by a service accredited by theIntersocietal Accreditation Commission (IAC/Vascular),[email or web address] Report generated by [employer]. Final us Luke Hiram Collado MD Carolyn gutierrez Result * (ABNORMAL) CBC AND DIFFERENTIAL (04/05/2024 8:46 AM CDT) [facility] WHITE BLOOD CELL COUNT 3.0(L) 3.8 - 10.8 Thousand/u L [facility] RED BLOOD CELL COUNT 3.57(L) 4.20 - 5.80 Million/uL [facility] HEMOGLOBIN 10.3(L) 13.2 - 17.1 g/dL [facility] HEMATOCRIT 33.1(L) 38.5 - 50.0 % [facility] MCV 92.7 80.0 - 100.0 fL [facility] MCH 28.9 27.0 - 33.0 pg [facility] MCHC 31.1(L) 32.0 - 36.0 g/dL [facility] Comment: For adults, a slight decrease in the calculated MCHC value (in the range of 30 to 32 g/dL) is most likely not clinically significant; however, it should be interpreted with caution in correlation with other red cell parameters and the patient's clinical condition. RDW 13.7 11.0 - 15.0 % [facility] PLATELET COUNT 539(H) 140 - 400 Thousand/u L [facility] MPV 10.7 7.5 - 12.5 fL [facility] ABSOLUTE NEUTROPHILS 2,028 1,500 - 7,800 cells/uL [facility] ABSOLUTE LYMPHOCYTES 270(L) 850 - 3,900 cells/uL [facility] Acrlos ABSOLUTE MONOCYTES 603 200 - 950 cells/uL [facility] ABSOLUTE EOSINOPHILS 60 15 - 500 cells/uL [facility] ABSOLUTE BASOPHILS 39 0 - 200 cells/uL [facility] Cralos NEUTROPHILS 67.6 % [facility] LYMPHOCYTES 9.0 % [facility] MONOCYTES 20.1 % [facility] EOSINOPHILS 2.0 % [facility] BASOPHILS 1.3 % [facility] Blood BLOOD SPECIMEN / Unknown 04/05/2024 8:46 AM CDT 04/05/2024 8:47 AM CDT us Dg Del Castillo MD HEMATOLOGY Final Resul t [email or web address] [facility] [address] [place] [address], [facility] [address] [place] [address] * SCAN-LABORATORY REPORT (04/02/2024 12:00 AM CDT) us Scanner OTHER Final Result * (ABNORMAL) HEMOGLOBIN (03/27/2024 8:17 AM CDT) Pathologist [facility] HEMOGLOBIN 10.7(L) 13.5 - 17.5 g/dL 03/27/2024 9:15 AM CDT [facility] MCV 96 80 - 100 fL 03/27/2024 9:15 AM [facility] Blood BLOOD SPECIMEN / Unknown Butterfly / Unknown 03/27/2024 8:17 AM CDT 03/27/2024 9:05 AM CDT Sally Miner NP HEMATOLOGY Final Resul t [facility] [address] [place] [address] * (ABNORMAL) BASIC METABOLIC PANEL (03/27/2024 8:17 AM CDT) [facility] SODIUM 137 136 - 145 mmol/L 03/27/2024 9:32 AM [facility] POTASSIUM 4.0 3.5 - 5.1 mmol/L 03/27/2024 9:32 AM [facility] CHLORIDE 99 98 - 107 mmol/L 03/27/2024 9:32 AM [facility] CO2,TOTAL 26 22 - 29 mmol/L 03/27/2024 9:32 AM [facility] ANION GAP 12 5 - 18 03/27/2024 9:32 AM [facility] GLUCOSE 199(H) 70 - 99 mg/dL 03/27/2024 9:32 AM [facility] CALCIUM 9.8 8.6 - 10.0 mg/dL 03/27/2024 9:32 AM CDT [facility] BUN 9 6 - 20 mg/dL 03/27/2024 9:32 AM T [facility] CREATININE 0.69(L) 0.70 - 1.20 mg/dL 03/27/2024 9:32 AM T [facility] BUN/CREAT RATIO 13 10 - 20 4 9:32 AM T [facility] eGFR >90 >90 mL/min/1.7 3m2 03/27/2024 9:32 AM T [facility] Comment:As of 2021, eG FR is calculated by the CKD-EPI creatinine equation without race adjustment. eGFR can be influenced by muscle mass, exercise, and diet. The reported eGFR is an estimation only and is only applicable if the renal function is stable. Blood BLOOD SPECIMEN / Unknown Butterfly / Unknown 03/27/2024 8:17 AM CDT 03/27/2024 9:05 AM CDT us Sally Miner SEED LABORATORY ASSISTANT CHEMISTRY Final Resul t [facility] [address] [place] [address] * (ABNORMAL) LIPID PANEL W REFLEX MEASURED LDL (09/28/2023 10:07 AM CDT) CHOLESTEROL,TOTAL 141 100 - 199 mg/dL 09/28/2023 5:29 PM T [facility] Comment: Cholesterol, Total Reference Ranges Desirable <200 mg/dL Borderline 200-239 mg/dL High >=240 mg/dL TRIGLYCERIDES 168(H) <150 mg/dL 09/28/2023 5:29 PM T [facility] HDL CHOLESTEROL 37(L) >40 mg/dL 5:29 PM T [facility] NON-HDL CHOLESTEROL 104 <145 mg/dl 09/28/2023 5:29 PM T [facility] CHOL/HDL RATIO 3.81 <4.50 09/28/2023 5:29 PM CDT [facility] LDL CHOLESTEROL 70 <=130 mg/dL 09/28/2023 5:29 PM CDT [facility] VLDL CHOLESTEROL 34(H) <=30 mg/dL 09/28/2023 5:29 PM CDT [facility] PROVIDER ORDERED STATUS RANDOM 09/28/2023 5:29 PM CDT [facility] Blood BLOOD SPECIMEN / Unknown Venipuncture / Unknown 09/28/2023 10:07 AM CDT 09/28/2023 10:08 AM CDT us Trang Escamilla DO CHEMISTRY Final Resul t [facility] [address] [place] [address], [place] * SDNA-FIT EXTERNAL (COLOGUARD) (06/25/2022 7:30 AM BULB ASSEMBLER) NONINV COLON CA DNA+OCC BLD SCRN STL-IMP Negative Negative 06/30/2022 7:11 PM BULB ASSEMBLER [employer] (CLIA #:[id number]) Comment: NEGATIVE TEST RESULT. A negative Cologuard result indicates a low likelihood that a colorectal cancer (CRC) or advanced adenoma (adenomatous polyps with more advanced pre-malignant features) is present. The chance that a person with a negative Cologuard test has a colorectal cancer is less than 1 in 1500 (negative predictive value >99.9%) or has an advanced adenoma is less than 5.3% (negative predictive value 94.7%). These data are based on a prospective cross-sectional study of 10,000 individuals at average risk for colorectal cancer who were screened with both Cologuard and colonoscopy. (Rosario Geller et al, N Engl J Med 2014;370(14):5918-9003) The normal value (reference range) for this assay is negative. COLOGUARD RE-SCREENING RECOMMENDATION: Periodic colorectal cancer screening is an important part of preventive healthcare for asymptomatic individuals at average risk for colorectal cancer. Following a negative Cologuard result, the [place] [employer] and U.S. Multi-Society Task Force screening guidelines recommend a Cologuard re-screening interval of 3 years. References: [place] [employer] Guideline for Colorectal Cancer Screening: https://www.cancer.org/cancer/kcrds-dmqhfj-acqqbf/nnqvmjmph-pkrnvxlov-wkdvuur/ac s-rec ommendations.html.; Beltran BRODERICK, Jessica NIELSON, Nesha GIBSON, Colorectal Cancer Screening: Recommendations for Physicians and Patients from the U.S. Multi-Society Task Force on Colorectal Cancer Screening , Am J Gastroenterology 2017; 112:7433-8755. TEST DESCRIPTION: Composite algorithmic analysis of stool DNA-biomarkers with hemoglobin immunoassay. Quantitative values of individual biomarkers are not reportable and are not associated with individual biomarker result reference ranges. Cologuard is intended for colorectal cancer screening of adults of either sex, 45 years or older, who are at average-risk for colorectal cancer (CRC). Cologuard has been approved for use by the U.S. FDA. The performance of Cologuard was established in a cross sectional study of average-risk adults aged 50-84. Cologuard performance in patients ages 45 to 49 years was estimated by sub-group analysis of near-age groups. Colonoscopies performed for a positive result may find as the most clinically significant lesion: colorectal cancer [4.0%], advanced adenoma (including sessile serrated polyps greater than or equal to 1cm diameter) [20%] or non- advanced adenoma [31%]; or no colorectal neoplasia [45%]. These estimates are derived from a prospective cross-sectional screening study of 10,000 individuals at average risk for colorectal cancer who were screened with both Cologuard and colonoscopy. (Rosario Basurto al, N Engl J Med 2014;370(14):0384-6132.) Cologuard may produce a false negative or false positive result (no colorectal cancer or precancerous polyp present at colonoscopy follow up). A negative Cologuard test result does not guarantee the absence of CRC or advanced adenoma (pre-cancer). The current Cologuard screening interval is every 3 years. ([place] [employer] and U.S. Multi-Society Task Force). Cologuard performance data in a 10,000 patient pivotal study using colonoscopy as the reference method can be accessed at the following location: www.exactlabs.com/results. Additional description of the Cologuard test process, warnings and precautions can be found at www.cologStaffInsightrd.com. Stool specimen (specimen) (Rectum) 06/25/2022 7:30 AM BULB ASSEMBLER 06/26/2022 2:04 PM BULB ASSEMBLER Trangart Escamilla DO URINE Final Resul t Performing Organization Address City/[facility]/ZIP Co de Phone Number [employer] (CLIA #:[id number]) [place] [address], * PATIENT SOURCE RAPID HIV (07/03/2012 2:24 PM BULB ASSEMBLER) SOURCE RAPID HIV SCREEN Non-react alex (Nonreact alex) [facility] Blood specimen (specimen) BLOOD SPECIMEN / Unknown 07/03/2012 2:24 PM BULB ASSEMBLER 07/03/2012 2:19 PM BULB ASSEMBLER Pennante ybuy DO SEND OUTS Final Resul t Performing Organization Address [facility] Co de Phone Number [facility] INTERNAL ZIP [address] [facility] [place] [id number] * PATIENT SOURCE ANTI HCV (07/03/2012 2:24 PM BULB ASSEMBLER) SOURCE ANTI HCV Non-react alex [facility] Blood specimen (specimen) BLOOD SPECIMEN / Unknown 07/03/2012 2:24 PM BULB ASSEMBLER 07/03/2012 2:19 PM BULB ASSEMBLER Trang Mesha ybuy DO SEND OUTS Final Resul t Performing Organization Address [facility] Co de Phone Number [facility] INTERNAL ZIP [phone] [place] [address] from Last 3 Months or Most Recently Relevant to Health Maintenance Additional Health Concerns Infection Onset Date Last Indicated MDRO Clearance Comment:Hx MDRO 201203/18/2024 03/18/2024 Insurance MEDICARE PB ONLY Member Subscriber Plan / Payer (Ef fective 2014-Present) Name:Christiano Johns Member ID:[id number] Relation to Subscriber:Self Name:Christiano Johns Subscriber ID:[id number] Payer ID:Not on file Group ID:Not on file Type:Not on file Address: ATTN: CLAIMS [id number] MEDICARE PART A HB ONLY MEDICARE PART B HB ONLY [facility] Advance Directives Documents on File Type Date Recorded Patient Sm[employer] 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 Expl anation POLST 10/10/2023 Healthcare Directive 11/22/2017 10:42 AM I NCOMPLETE POLST 10/18/2017 11:33 AM 10/18/2023 POLST 07/25/2013 10:41 AM Healthcare Directive 06/25/2013 10:46 AM H ealthcare Directive & POA * Full Code (Latest Code Status on File) Date Activated Date Inactivated Comments 03/16/2024 8:15 AM 03/21/2024 11:59 AM Question Answer Comments Code Status Discussion: Unable to Assess Preferences, Provider to review later * Full Code Date Activated Date Inactivated Comments 03/02/2024 2:51 PM 03/03/2024 4:20 PM Question Answer Comments Code Status Discussion: Reviewed Preferences * Full Code Date Activated Date Inactivated Comments 12/21/2018 1:47 PM 12/22/2018 1:13 PM * Full Code Date Activated Date Inactivated Comments 08/08/2018 9:08 AM 08/09/2018 2:35 PM * Full Code Date Activated Date Inactivated Comments 12/06/2017 8:15 AM 12/13/2017 12:26 PM Care Teams Biofuels Production Technician Relationship Specialty Start Date End Date VoteTruong gutierrez MD [address] [place] [id number] PCP - General Family Practice 10/25/23 Henry Mckeon MD Consulting Physician Radiology - Diagnostic 05/16/13 Other-None . Airline Reservationist Registered Nurse 06/07/13 Jose Flower MD . Consulting Physician Surgery - General 07/25/13 Emmanuel Foy MD . Hematology and Oncology 10/11/13 [place] [address] [place] [address] Ophthalmology Sap Security Consultant 10/07/16 Dg Del Castillo MD [address] [facility] [address] [place] [address] Rheumatology 05/31/23
[2024-06-22 16:12] VITALS: BP 153/86; PULSE 83; RESP 18; TEMP 36.2; O2SAT 95; BMI 32.4
--- NOTE | 2024-06-22 16:50 | ED_ITS ---
HPI - General Adult General Chief complaint: Laceration/Wound Stated complaint: Back of skull injury Time Seen by Provider: 06/22/24 16:07 Source: patient Limitations: no limitations History of Present Illness HPI narrative: 59-year-old male presents the emergency department from been a [facility]. He was going to the bathroom and his suspenders came unhook to from his posterior pants. This prong off of his jeans and struck him in the back of the head, causes a small laceration. Unfortunately, since he is anticoagulated on both Coumadin and Plavix for blood clots, staff at his assisted living were unable to get the bleeding to stop. He did not fall, there were no signs of any neurological changes. He denies any significant pain. He has been otherwise feeling well and has no other acute concerns today. Laceration is on the high occiput, centrally. They have tried applying pressure for an hour with no improvement. Past medical history is notable for prosthetic left leg. Prior blood clots and hypertension. ROS is notable for the skin issues as above only, otherwise denies times 12 systems. Related Data Home Medications ?Medication ?Instructions ?Recorded ?Confirmed clopidogrel 75 mg tablet 75 mg PO DAILY 06/22/24 06/22/24 gabapentin 300 mg capsule mg PO 06/22/24 hydrochlorothiazide 25 mg tablet 25 mg PO DAILY 06/22/24 06/22/24 hydroxychloroquine 200 mg tablet 200 mg PO DAILY 06/22/24 06/22/24 oxybutynin chloride 5 mg 5 mg PO DAILY 06/22/24 06/22/24 tablet,extended release 24 hr warfarin 5 mg tablet 5 mg PO QPM 06/22/24 06/22/24 Allergies Allergy/AdvReac Type Severity Reaction Status Date / Time aspirin Allergy Mild Unknown Verified 06/22/24 16:12 azathioprine (From Imuran) Allergy Mild Unknown Verified 06/22/24 16:12 Exam Const: Vital Signs, click to edit/add: Vital Signs - 24 hr 06/22/24 16:12 Temperature 97.1 F L Pulse Rate [Pulse Oximeter] 83 Respiratory Rate 18 Blood Pressure [Le ft Upper Arm] 153/86 H Pulse Oximetry 95 Oxygen Delivery Me thod Room Air Documenting provider has reviewed patient's vital signs: yes Common normals: no apparent distress and alert Other: Friendly and cooperative. Normal speech. Answers questions appropriately. HENMT: Other: 2 cm laceration to the high occiput cent rally. Diagonal. Moderate bleeding. No signs of foreign body. Attempt was made with surrounding care to apply tension across the wound to see if this would cause hemostasis, unfortunately would not. Eye: Common normals: PERRL and conjunctivae normal General eye: normal appearance of both eyes Conjunctiva: conjunctiva(e) normal Pupil: PERRL Neck & C-Spine: Cervical spine: cervical ROM normal Resp: Common normals: normal respiratory effort Effort & inspection: able to speak in complete sentences Neuro: Sensorium/orientation: alert Speech: speech normal Psych: Attitude: engaged Activity/motor behavior: appropriate eye contact Skin: Narrative: No other areas of injury noted. Course Course ED Course: Procedure: Laceration repair. Area was cleansed with Hibiclens and tap water no signs of foreign body noted. Initial attempt at para physician with a tiny pinpoint of Dermabond was unfortunately unsuccessful, bleeding continued. This was undone and repeat scrubbed. Injected with 2 mL of 1% lidocaine without epinephrine with good anesthesia. Four nancy were placed across the wound with excellent hemostasis and wound closure. Covered in antibiotic ointment, counseled on wound care. Ideally, plan antibiotic ointment or Vaseline daily to help keep the skin soft. He will need make follow-up appointment in the clinic in a week to have the nancy removed. Continue anticoagulant. There are no signs of neurological compromise that would warrant stroke workup. If these do occur, please return to the emergency department. Okay to use Tylenol as needed for headache. Vital Signs Vital signs: Initial Vital Signs Temperature 97.1 F L 06/22/24 16:12 Temperature Source Temporal Artery Scan 06/22/24 16:12 Pulse Rate 83 06/22/24 16:12 Respiratory Rate 18 06/22/24 16:12 Blood Pressure 153/86 H 06/22/24 16:12 Blood Pressure Mean 108 H 06/22/24 16:12 Blood Pressure Position Sitting 06/22/24 16:12 Pulse Oximetry 95 06/22/24 16:12 Oxygen Delivery Method Room Air 06/22/24 16:12 Vital Signs Temperature 97.1 F L 06/22/24 16:12 Pulse Rate 83 06/22/24 16:12 Respiratory Rate 18 06/22/24 16:12 Blood Pressure 153/86 H 06/22/24 16:12 Pulse Oximetry 95 06/22/24 16:12 Oxygen Delivery Method Room Air 06/22/24 16:12 Temperature 97.1 F L 06/22/24 16:12 Pulse Rate 83 06/22/24 16:12 Respiratory Rate 18 06/22/24 16:12 Blood Pressure 153/86 H 06/22/24 16:12 Pulse Oximetry 95 06/22/24 16:12 Oxygen Delivery Method Room Air 06/22/24 16:12 Discharge Plan Discharge Clinical Impression: Laceration of scalp Patient Disposition: Home w/ Parent or Adult Condition: Improved Instructions: Staple Care (ED) Additional Instructions: As we discussed, unfortunately, the bleeding did not want to stop easily. Ultimately, we did have to put in for 4 nancy. This stopped the bleeding nicely. You will need to make an appointment to have these taken out in about 7-10 days. Try to apply antibiotic ointment every day to help keep the skin soft. Make sure to apply some antibiotic ointment or Vaseline an hour before your appointment to have the nancy removed. You will need to schedule an appointment to have the nancy removed in the clinic. It is common to have a mild headache from the injury. There are no significant signs of neurological injury or bleeding inside the brain. It is okay to use Tylenol for discomfort. If there any stroke-like symptoms, repeat bleeding or severe worsening, he should come back to the emergency department. He may continue taking her blood thinners as prescribed. Activity Level: No Restrictions Discharge Diet: Regular Prescriptions: No Action clopidogrel 75 mg tablet 75 mg PO DAILY warfarin 5 mg tablet 5 mg PO QPM oxybutynin chloride 5 mg tablet extended release 24hr 5 mg PO DAILY gabapentin 300 mg capsule PO hydrochlorothiazide 25 mg tablet 25 mg PO DAILY hydroxychloroquine 200 mg tablet 200 mg PO DAILY Follow Up/Referrals: Truong Carpio MD [Primary Care Provider] - Stand Alone Forms: [employer] Info Instructions
--- OUTSIDE RECORDS SUMMARY | 2024-06-22 17:09 | XMS_ITS | Clinical Summary ---
Author Organization [employer] [employer] Address [place], [place] [address] Care Team Providers Care Instruction Dean Name Role Phone Henry Mckeon MD Unavailable [phone] Other-None Unavailable Unavailable Jose Flower MD Unavailable [phone] Emmanuel Foy MD Unavailable Unavailable Christiano Jerome OD Unavailable [phone] Dg Del Castillo MD Unavailable [phone] Truong Carpio MD Primary Care Provider + Allergies Active Allergy Reactions Criticality Noted Date Comments Lisinopril Angioedema Medium 04/28/2012 Medications Calcium carbonate (OYSTERSHELL CALCIUM) 500 mg tablet Take 500 mg by mouth 2 times daily with meals. Active NATURAL WHEEL CUTTER MULTIVITAMIN ORAL Take 1 tablet by mouth [...] 12 months 1 Device 04/16/20 19 Active Ojtch-6-GQL-EPA-Fis h Oil 1,000 mg (120 mg-180 mg) [...] be used to read blood sugars, follow scrap drop engineer directions. 6 Each 3 10/25/19 24 Active [...] below knee amputation 01/01/2014 Hydrocephalus 12/27/2013 Obstructed SHIP CARPENTER shunt 12/27/2013 Issue of repeat prescription 11/14/2013 [...] Department Care Team Description 06/20/2024 10:30 AM DENSITY CONTROL PUNCHER Orders Only [facility] [address] [place] [address] Lab, [place] [facility] 06/20/2024 Anticoagulation (warfarin) [facility] [address] [place] [address] 1, [facility] Anticoagulation 06/20/2024 Travel 06/15/2024 Travel 06/07/2024 Telephone [facility] [address] [place] [address] DarrenteTruong gutierrez MD Form 06/07/2024 Telephone [facility] [address] [place] [address] Truong Carpio MD Form 05/18/2024 Anticoagulation (warfarin) [facility] [address] [place] [address] 1, [facility] Anticoagulation 05/17/2024 1:45 PM DENSITY CONTROL PUNCHER Orders Only [facility] [address] [place] [address] Lab, [facility] Lab 05/16/2024 Travel 05/15/2024 Telephone [facility] [address] [place] [address] Truong Carpio MD 05/14/2024 Refill [facility] [address] [place] [address] Truong Carpio MD Refill Request (Warfarin) 05/12/2024 Travel 05/08/2024 Telephone [facility] [address] [place] [address] Truong Carpio MD Form (Authorization FOrm ) 04/26/2024 Telephone [facility] [address] [place] [address] Truong Carpio MD Form 04/25/2024 10:25 AM DENSITY CONTROL PUNCHER Office Visit [facility] [address] [place] [address] Truong Carpio MD Hospital F/U (ANW, 03/16/24, vascular rt femoral); Diabetes; Immunization/Injectio n 04/25/2024 Telephone [facility] [address] [place] [address] Truong Carpio MD Anticoagulation (BPA fenofibrate/warfarin) 04/24/2024 Travel 04/24/2024 Telephone [facility] [address] [place] [address] Truong Carpio MD 04/23/2024 Telephone [facility] [address] [place] [address] Oetken, Trang Mesha, DO Form (INCIDENT REPORT) 04/19/2024 Telephone [facility] [address] [place] [address] Truong Carpio MD 04/18/2024 Anticoagulation (warfarin) [facility] [address] [place] [address] 1, [place] Anticoagulation 04/17/2024 3:00 PM DENSITY CONTROL PUNCHER Orders Only [facility] [address] [place] [address] Lab, [place] [facility] 04/17/2024 Travel 04/14/2024 Travel 04/13/2024 Telephone [facility] [address] [place] [address] Truong Carpio MD Anticoagulation (Lab Orders ) 04/09/2024 11:00 AM CDT [place] [facility] [address] [place] [address] Luke Collado MD CV Vascular Est (1 month follow up; right fem above knee popliteal bypass with PTFE. U/S scheduled prior) 04/09/2024 9:18 AM CDT - 04/09/2024 11:59 PM CDT Hospital Encounter [facility] [address] [place] [address] Luke Collado MD [facility] PAD (peripheral artery disease) (HC) 04/08/2024 Travel 04/06/2024 Anticoagulation (warfarin) [facility] [address] [place] [address] [address] 1, [place] Anticoagulation 04/05/2024 9:45 AM CDT Orders Only [facility] [place] [address] [address] [address] Lab, [place] [facility] 04/05/2024 Travel 04/02/2024 Orders Only [facility] SERVICES Scanner 1 scan: (1-Ord) [facility], INR, 04/02/2024 04/02/2024 Anticoagulation (warfarin) [facility] [address] [place] [address] 1, [place] [facility] Anticoagulation (Chart update) 04/02/2024 Telephone [facility] [address] [facility] [place] [address] Truong Carpio MD Anticoagulation (Lab Clarification) 03/28/2024 Orders Only [facility] [address] [place], [place] [address] Dg Del Castillo MD Lab (Order Update) 03/23/2024 Lab Requisition [facility] [phone] Sally Miner, MARKETING SECRETARY from Last 3 Months Immunizations Name Administration [...] drink = 0.6 oz pur e alcohol) [facility] Utilities Answer Date Recorded Do you have [...] PM CDT Legal Sex Male 5:24 AM DENSITY CONTROL PUNCHER Gender Identity Not on file Sexual Orientation Not on file Obstetrics History Last Filed Vital Signs Vital Sign Reading Time Taken Comments Blood Pressure 136/76 04/25/2024 10:20 AM DENSITY CONTROL PUNCHER Pulse 78 04/25/2024 10:20 AM DENSITY CONTROL PUNCHER Temperature 36.9 C (98.4 F) 04/25/2024 10:20 AM DENSITY CONTROL PUNCHER Respiratory Rate 16 04/09/2024 10:23 AM CDT Oxygen Saturation 98% 04/25/2024 10:20 AM DENSITY CONTROL PUNCHER Inhaled Oxygen Concentration - - Weight 89 kg (196 lb 3.4 oz) 03/20/2024 5:31 AM CDT Height 165.1 cm (5' 5) 03/16/2024 8:47 AM CDT Body Mass Index 32.65 03/16/2024 8:47 AM CDT Plan of Treatment Upcoming Encounters Date Type Department Care Team (Late st Contact Info) Description 06/28/2024 10:40 AM DENSITY CONTROL PUNCHER Office Visit [facility] [address] [place], [place] [id number] Dg Del Castillo MD [address] [facility] [address] [place] [address] 09/26/2024 10:25 AM CDT Office Visit [facility] [address] [place] [address] Truong Carpio MD [address] [place] [address] Health Maintenance Due Date Last Done Comments [...] 10/25/2023, Additional history exists Fecal testing sDNA-FIT ([place] guard) for age 45-75 06/25/2025 06/25/2022 Lipids [...] history exists Medical Devices Implanted Type Area Award Clerk Device Identifier Shelf Expiration Date Model / Serial / Lot Shunt System 15cm Stra [id number] Nmtneuroscie - [id number] Implanted:Qty: 1 on 12/28/2013 at [facility] Right: Cranium giftee Rita [id number]# / / [id number] Graft Vasc 6x40mm 60cm Propaten - [id number] Implanted:Qty: 1 on 03/16/2024 by Luke Collado MD at [facility] Right: Leg [employer] 10/30/2026 [id number] / [id number] / Procedures Procedure Name Priority Date/Time Associated Diagnosis Comments PROTIME-INR Routine 06/20/2024 9:31 AM DENSITY CONTROL PUNCHER Anti-phospholipid syndrome (HC) history of Pulmonary embolism Anticoagulation monitoring, INR range 2-3 PROTIME-INR Routine 05/17/2024 1:09 PM DENSITY CONTROL PUNCHER Anti-phospholipid syndrome (HC) history of Pulmonary embolism Anticoagulation monitoring, INR range 2-3 UA W/ SEDIMENT EXAM REFLEXED PER CRITERIA Routine 04/25/2024 11:32 AM DENSITY CONTROL PUNCHER Urge incontinence HEMOGLOBIN A1C MONITORING (POCT) Routine 04/25/2024 10:06 AM DENSITY CONTROL PUNCHER Type 2 diabetes mellitus with diabetic neuropathy, without long-term current use of insulin (HC) PROTIME-INR Routine 04/17/2024 2:38 PM DENSITY CONTROL PUNCHER Anti-phospholipid syndrome (HC) history of Pulmonary embolism [...] SDNA-FIT EXTERNAL (COLOGUARD) Routine 06/25/2022 7:30 AM DENSITY CONTROL PUNCHER Screening for colon cancer EXPOSURE (BBF) RAPID HIV Routine 07/03/2012 2:24 PM DENSITY CONTROL PUNCHER Needle Stick Injury EXPOSURE (BBF) ANTI HCV Routine 07/03/2012 2:24 PM DENSITY CONTROL PUNCHER Needle Stick Injury from Last 3 Months or Most Recently Relevant to Health Maintenance Results * (ABNORMAL) PROTIME-INR [[id number]] - Standing Order (06/20/2024 9:31 AM DENSITY CONTROL PUNCHER) Only the most recent of4 resultswithin the time period is included. INR 2.9(H) <1.3 06/20/2024 2:47 PM DENSITY CONTROL PUNCHER [facility] PROTIME 34.0(H) 10.6 - 12.4 sec 06/20/2024 2:47 PM DENSITY CONTROL PUNCHER [facility] Blood BLOOD SPECIMEN / Unknown [facility] / Unknown 06/20/2024 9:31 AM DENSITY CONTROL PUNCHER 06/20/2024 9:31 AM DENSITY CONTROL PUNCHER [facility] - 06/20/2024 2:47 PM DENSITY CONTROL PUNCHER Therapeutic Range 2.0-3.0 for most anticoagulated patients [...] Truong Carpio MD HEMATOLOGY Final Re sult [facility] [address] [place] [address], [place] * UA W/ SEDIMENT EXAM REFLEXED PER CRITERIA (04/25/2024 11:32 AM DENSITY CONTROL PUNCHER) COLOR YELLOW YELLOW [facility] [...] URINE SPECIMEN / Unknown 04/25/2024 11:32 AM DENSITY CONTROL PUNCHER 04/25/2024 11:33 AM DENSITY CONTROL PUNCHER Truong Carpio MD URINE Final Re sult Performing Organization Address City/[facility]/ZIP Co de Phone Number [facility] [address] [place] [address], [place] [phone] [facility] [address] [place] [address] * (ABNORMAL) HEMOGLOBIN A1C MONITORING (POCT) (04/25/2024 10:06 AM DENSITY CONTROL PUNCHER) POC HEMOGLOBIN A1C 7.0(H) <6.0 % OF TOTAL HGB [facility] Comment: Any point of care results exhibiting inconsistency with the patient's clinical status should be repeated using a different testing method. Blood BLOOD SPECIMEN / Unknown 04/25/2024 10:06 AM DENSITY CONTROL PUNCHER 04/25/2024 10:07 AM DENSITY CONTROL PUNCHER Truong Carpio MD CHEMISTRY Final Re sult Performing Organization Address [facility] Co de Phone Number [facility] [address] [place] [address], [facility] [address] [place] [address] * US ARTERIAL LOWER EXTREMITY W ROMEO BILATERAL (04/09/2024 10:22 AM CDT) Anatomical Region Laterality Modality LEGS Ultrasound 04/09/2024 9:52 AM CDT Narrative 04/09/2024 7:22 PM CDT VASCULAR ULTRASOUND REPORT CHRISTIANO JOHNS : 1965 Study Date: 04/09/2024 9:52:42 AM Age: 59 years Tech: Kelley Fernandez RVT Gender: M Referring MD: LUKE COLLADO Site: [facility] - Vascular Center Study performed: Lower extremity duplex US, (bilateral), resting ROMEO, (right), TBI. Indication for study: Follow-up CASTING ROOM OPERATOR/stent/bypass Study Quality: Good TECHNIQUE: Lower/upper extremity arteries [...] decreased and are now severely abnormal. RT PHOTOGRAPH MOUNTER to distal SFA bypass graft is patent with elevated velosites in the distal SFA outflow. FINDINGS: LT BKA. Right toe/brachial index indicates severe range. +--------+ + + RIGHT Velocity cm/s Phasicity +--------+ + + PHOTOGRAPH MOUNTER PRX 91 multiphasic +--------+ + + PHOTOGRAPH MOUNTER DST 59 multiphasic +--------+ + + SFA DST 86 multiphasic +--------+ + + GABBY PRX 64 multiphasic +--------+ + + GABBY DST 60 multiphasic +--------+ + + CASTING ROOM OPERATOR DST 45 monophasic +--------+ + + DPA 28 monophasic +--------+ + + +-------+ + + LEFT Velocity cm/s Phasicity +-------+ + + PHOTOGRAPH MOUNTER PRX 74 multiphasic +-------+ + + PHOTOGRAPH MOUNTER DST 74 multiphasic +-------+ + + PFA [...] Brachial 159 +-----+ +--------+ + 0.45 72 CASTING ROOM OPERATOR +-----+ +--------+ + 0.39 62 DPA +-----+ +--------+ + 0.26 42 Digit 1 +-----+ +--------+ + BYPASS GRAFT Patent, right graft type: PHOTOGRAPH MOUNTER to distal SFA. +---------+ + +--------+-----+ RIGHT [...] Accreditation Commission (IAC/Vascular), [email or web address]/vascular Report generated by Inxero. Final Procedure Note Hakeem Arredondo MD - 04/09/2024 VASCULAR ULTRASOUND REPORT CHRISTIANO JOHNS : 1965 Study Date: 04/09/2024 9:52:42 AM Age: 59 years Tech: Kelley Fernandez [facility] Gender: M Referring MD: LUKE COLLADO Site: [facility] - Vascular Center Study performed: Lower extremity duplex US, (bilateral), restingABI, (right), TBI. Indication for study: Follow-up CASTING ROOM OPERATOR/stent/bypass Study Quality: Good TECHNIQUE: Lower/upper extremity arteries [...] TBIhave decreased and arenow severely abnormal. RT PHOTOGRAPH MOUNTER to distal SFA bypass graft is patent withelevated velosites in the distal SFA outflow. FINDINGS: LT BKA. Right toe/brachial index indicates severe range. +--------+ + + RIGHT Velocity cm/s Phasicity +--------+ + + PHOTOGRAPH MOUNTER PRX 91 multiphasic +--------+ + + PHOTOGRAPH MOUNTER DST 59 multiphasic +--------+ + + SFA DST 86 multiphasic +--------+ + + GABBY PRX 64 multiphasic +--------+ + + GABBY DST 60 multiphasic +--------+ + + CASTING ROOM OPERATOR DST 45 monophasic +--------+ + + DPA 28 monophasic +--------+ + + +-------+ + + LEFT Velocity cm/s Phasicity +-------+ + + PHOTOGRAPH MOUNTER PRX 74 multiphasic +-------+ + + PHOTOGRAPH MOUNTER DST 74 multiphasic +-------+ + + PFA [...] Brachial 159 +-----+ +--------+ + 0.45 72 CASTING ROOM OPERATOR +-----+ +--------+ + 0.39 62 DPA +-----+ +--------+ + 0.26 42 Digit 1 +-----+ +--------+ + BYPASS GRAFT Patent, right graft type: PHOTOGRAPH MOUNTER to distal SFA. +---------+ + +--------+-----+ RIGHT [...] theIntersocietal Accreditation Commission (IAC/Vascular),[email or web address]/vascular Report generated by Inxero. Final us Luke Hiram Collado MD Carolyn gutierrez Result * (ABNORMAL) CBC AND DIFFERENTIAL (04/05/2024 8:46 AM CDT) [facility] WHITE BLOOD CELL COUNT 3.0(L) 3.8 - [...] - 3,900 cells/uL [facility] ABSOLUTE MONOCYTES 603 200 - 950 cells/uL [facility] ABSOLUTE EOSINOPHILS 60 15 - 500 cells/uL [facility] ABSOLUTE BASOPHILS 39 0 - 200 cells/uL [facility] NEUTROPHILS 67.6 % [facility] LYMPHOCYTES 9.0 % [facility] MONOCYTES 20.1 % [facility] EOSINOPHILS 2.0 % [facility] BASOPHILS 1.3 % [facility] Blood BLOOD SPECIMEN / Unknown 04/05/2024 8:46 AM CDT 04/05/2024 8:47 AM CDT us Dg Del Castillo MD HEMATOLOGY Final Resul t [facility] [address] [place] [address], [facility] [address] [place] [address] * SCAN-LABORATORY REPORT (04/02/2024 12:00 AM CDT) us Scanner OTHER Final Result * (ABNORMAL) HEMOGLOBIN (03/27/2024 8:17 AM CDT) Pathologist [facility] HEMOGLOBIN 10.7(L) 13.5 - 17.5 g/dL 03/27/2024 9:15 AM CDT [facility] MCV 96 80 - 100 fL 03/27/2024 9:15 AM [facility] Blood BLOOD SPECIMEN / Unknown Butterfly / Unknown 03/27/2024 8:17 AM CDT 03/27/2024 9:05 AM CDT Sally Miner NP HEMATOLOGY Final Resul t [facility] [address] [place] [address] * (ABNORMAL) BASIC METABOLIC PANEL (03/27/2024 8:17 AM CDT) [facility] SODIUM 137 136 - 145 mmol/L 03/27/2024 9:32 AM [facility] POTASSIUM 4.0 3.5 - 5.1 mmol/L 03/27/2024 9:32 AM [facility] CHLORIDE 99 98 - 107 mmol/L 03/27/2024 9:32 AM [facility] CO2,TOTAL 26 22 - 29 mmol/L 03/27/2024 9:32 AM [facility] ANION GAP 12 5 - 18 03/27/2024 9:32 AM [facility] GLUCOSE 199(H) 70 - 99 mg/dL 03/27/2024 9:32 AM [facility] CALCIUM 9.8 8.6 - 10.0 mg/dL 03/27/2024 9:32 AM CDT [facility] BUN 9 6 - 20 mg/dL 03/27/2024 9:32 AM T [facility] CREATININE 0.69(L) 0.70 - 1.20 mg/dL 03/27/2024 9:32 AM T [facility] BUN/CREAT RATIO 13 10 - 20 4 9:32 AM T [facility] eGFR >90 >90 mL/min/1.7 3m2 03/27/2024 9:32 AM T [facility] Comment:As of 2021, eG FR is calculated by the CKD-EPI creatinine equation without race adjustment. eGFR can be influenced by muscle mass, exercise, and diet. The reported eGFR is an estimation only and is only applicable if the renal function is stable. Blood BLOOD SPECIMEN / Unknown Butterfly / Unknown 03/27/2024 8:17 AM CDT 03/27/2024 9:05 AM CDT us Sally Miner MARKETING SECRETARY CHEMISTRY Final Resul t [facility] [address] [place] [address] * (ABNORMAL) LIPID PANEL W REFLEX MEASURED LDL (09/28/2023 10:07 AM CDT) CHOLESTEROL,TOTAL 141 100 - 199 mg/dL 09/28/2023 5:29 PM T [facility] Comment: Cholesterol, Total Reference Ranges Desirable <200 mg/dL Borderline 200-239 mg/dL High >=240 mg/dL TRIGLYCERIDES 168(H) <150 mg/dL 09/28/2023 5:29 PM T [facility] HDL CHOLESTEROL 37(L) >40 mg/dL 5:29 PM T [facility] NON-HDL CHOLESTEROL 104 <145 mg/dl 09/28/2023 5:29 PM T [facility] CHOL/HDL RATIO 3.81 <4.50 09/28/2023 5:29 PM CDT [facility] LDL CHOLESTEROL 70 <=130 mg/dL 09/28/2023 5:29 PM CDT [facility] VLDL CHOLESTEROL 34(H) <=30 mg/dL 09/28/2023 5:29 PM CDT [facility] PROVIDER ORDERED STATUS RANDOM 09/28/2023 5:29 PM CDT [facility] Blood BLOOD SPECIMEN / Unknown Venipuncture / Unknown 09/28/2023 10:07 AM CDT 09/28/2023 10:08 AM CDT us Trang Escamilla DO CHEMISTRY Final Resul t [facility] [address] [place] [address], [place] * SDNA-FIT EXTERNAL (COLOGUARD) (06/25/2022 7:30 AM DENSITY CONTROL PUNCHER) NONINV COLON CA DNA+OCC BLD SCRN STL-IMP Negative Negative 06/30/2022 7:11 PM DENSITY CONTROL PUNCHER [facility] (CLIA #:[id number]) Comment: NEGATIVE TEST RESULT. A negative Cologuard [...] Geller et al, N Engl J Med 2014;370(14):4024-3309) The normal value (reference range) for this assay is negative. COLOGUARD RE-SCREENING RECOMMENDATION: Periodic colorectal cancer screening is an important part of preventive healthcare for asymptomatic individuals at average risk for colorectal cancer. Following a negative Cologuard result, the [place] Cancer Society and U.S. Multi-Society Task Force screening guidelines recommend a Cologuard re-screening interval of 3 years. References: [place] Cancer Society Guideline for Colorectal Cancer Screening: https://www.cancer.org/cancer/ngysx-xugsgm-ubyopr/nkgwpiasd-dhvxfoekl-lwviicl/ac s-rec ommendations.html.; Beltran BRODERICK, Jessica NIELSON, Nesha GIBSON, Colorectal Cancer Screening: Recommendations for Physicians and Patients from the U.S. Multi-Society Task Force on Colorectal Cancer Screening , Am J Gastroenterology 2017; 112:0034-7449. TEST DESCRIPTION: Composite algorithmic analysis of stool [...] (Rosario Basurto al, N Engl J Med 2014;370(14):9027-0874.) Cologuard may produce a false negative or false positive result (no colorectal cancer or precancerous polyp present at colonoscopy follow up). A negative Cologuard test result does not guarantee the absence of CRC or advanced adenoma (pre-cancer). The current Cologuard screening interval is every 3 years. ([place] Cancer Society and U.S. Multi-Society Task Force). Cologuard performance data in a 10,000 patient pivotal study using colonoscopy as the reference method can be accessed at the following location: www.exactlabs.com/results. Additional description of the Cologuard test process, warnings and precautions can be found at www.cologZumba Fitnessrd.com. Stool specimen (specimen) (Rectum) 06/25/2022 7:30 AM DENSITY CONTROL PUNCHER 06/26/2022 2:04 PM DENSITY CONTROL PUNCHER Trangart Escamilla DO URINE Final Resul t Performing Organization Address City/[facility]/ZIP Co de Phone Number [facility] (CLIA #:[id number]) [place] [address], * PATIENT SOURCE RAPID HIV (07/03/2012 2:24 PM DENSITY CONTROL PUNCHER) SOURCE RAPID HIV SCREEN Non-react alex (Nonreact alex) [facility] Blood specimen (specimen) BLOOD SPECIMEN / Unknown 07/03/2012 2:24 PM DENSITY CONTROL PUNCHER 07/03/2012 2:19 PM DENSITY CONTROL PUNCHER [employer] 1stdibs DO SEND OUTS Final Resul t Performing Organization Address [facility] Co de Phone Number [facility] INTERNAL ZIP [address] [facility] [place] [address] * PATIENT SOURCE ANTI HCV (07/03/2012 2:24 PM DENSITY CONTROL PUNCHER) SOURCE ANTI HCV Non-react alex [facility] Blood specimen (specimen) BLOOD SPECIMEN / Unknown 07/03/2012 2:24 PM DENSITY CONTROL PUNCHER 07/03/2012 2:19 PM DENSITY CONTROL PUNCHER Trang Mesha 1stdibs DO SEND OUTS Final Resul t Performing Organization Address [facility] Co de Phone Number [facility] INTERNAL ZIP [address] [place] [address] from Last 3 Months or Most Recently Relevant to Health Maintenance Additional Health Concerns Infection Onset Date Last Indicated MDRO Clearance Comment:Hx MDRO 201203/18/2024 03/18/2024 Insurance MEDICARE PB ONLY Member Subscriber Plan / Payer (Ef fective 2014-Present) Name:Chritsiano Johns Member ID:[id number] Relation to Subscriber:Self Name:Christiano Johns Subscriber ID:[id number] Payer ID:Not on file Group ID:Not on file Type:Not on file Address: ATTN: CLAIMS [address] MEDICARE PART A HB ONLY MEDICARE PART B HB ONLY [facility] Advance Directives Documents on File Type Date Recorded Patient Front Desk Officer Expl anation POLST 10/10/2023 Healthcare Directive 11/22/2017 [...] 8:15 AM 12/13/2017 12:26 PM Care Teams Instruction Dean Relationship Specialty Start Date End Date VoteTruong gutierrez MD [address] [place] [address] PCP - General Family Practice 10/25/23 Henry Mckeon MD Consulting Physician Radiology - Diagnostic 05/16/13 Other-None . Manual Arts Teacher Registered Nurse 06/07/13 Jose Flower MD . Consulting Physician Surgery - General 07/25/13 Emmanuel Foy MD . Hematology and Oncology 10/11/13 [place] [address] [place] [address] Ophthalmology Conventions Assistant 10/07/16 Dg Del Castillo MD [address] [facility] [address] [place] [address] Rheumatology 05/31/23
--- NOTE | 2024-06-22 17:44 | ED.NURSE ---
Pt report given to lesson instructor RN at [facility], staff aware and understanding that pt is discharging home.
== END 2024-06-22 17:42 | disposition home or self-care (01) ==
LOC: ED 17:08
PROVIDERS: Emergency Provider Family Medicine; PCP Family Medicine
DX: S01.01XA Laceration without foreign body of scalp, initial encounter (principal); W22.8XXA Striking against or struck by other objects, initial encounter
CPT/HCPCS: 12001; 99283

== ENCOUNTER 2024-06-22 17:42 | Outpatient (CLI) | payer MEDICARE, SELFPAY | END 2024-06-22 17:43 | disposition home or self-care (01) | LOC: AMB 07-19 23:58 | PROVIDERS: PCP Family Medicine; Visit Provider Family Medicine | DX: S01.01XA Laceration without foreign body of scalp, initial encounter (principal); Z99.3 Dependence on wheelchair | CPT/HCPCS: A0425; A0428 ==

== ENCOUNTER 2025-02-19 10:17 | Outpatient (REF) | payer MEDICARE, SELFPAY ==
--- OUTSIDE RECORDS SUMMARY | 2025-02-20 00:18 | XMS_ITS | Clinical Summary ---
Author Organization [facility] Address [address] [place] [address] Care Team Providers Care Manager Chemical Name Role Phone Henry Mckeon MD Unavailable [phone] Other-None Unavailable Unavailable Jose Flower MD Unavailable [phone] Emmanuel Foy MD Unavailable Unavailable Christiano Jerome OD Unavailable [phone] Dg Del Castillo MD Unavailable [phone] Truong Carpio MD Primary Care Provider + Allergies Active Allergy Reactions Criticality Noted Date Comments Lisinopril Angioedema Medium 04/28/2012 Medications Calcium carbonate (OYSTERSHELL CALCIUM) 500 mg tablet Take 500 mg by mouth 2 times daily with meals. 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 Active cholecalciferol (VITAMIN D) 1,000 unit capsule Take 1 capsule by mouth once daily. 0 014 Active glucose 4 g chewable tablet Take 4 g by mouth each time if needed for Blood Gluc < 60 g/dL. Active cyanocobalamin (VITAMIN B-12) 1,000 mcg tablet Take 1,000 mcg by mouth once daily. Active acetaminophen (TYLENOL EXTRA STRENGTH) 500 mg tablet Take 500 mg by mouth 4 times daily if needed. Max acetaminophen dose: 4000mg in 24 hrs. 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 2 Each 022 Active gabapentin (NEURONTIN) 300 mg capsuleIndications :Diabetic peripheral neuropathy (HC) Take 2-3 Capsules (600-900 mg) by mouth three times daily. Take 2 capsules in the morning, 2 capsule in the afternoon, and 3 capsules at bedtime 630 Capsule 3 024 Active famotidine (PEPCID) 20 mg tabletIndications: Gastroesophageal reflux disease without esophagitis Take 1 Tablet (20 mg) by mouth at bedtime. 90 Tablet 3 024 Active fenofibrate nanocrystallized (TRICOR) 145 mg tabletIndications: Dyslipidemia Take 1 Tablet (145 mg) by mouth once daily with a meal. 90 Tablet 3 024 Active metFORMIN (GLUCOPHAGE) 1,000 mg tabletIndications: Type 2 diabetes mellitus with diabetic neuropathy, without long-term current use of insulin (HC) Take 1 Tablet (1,000 mg) by mouth two times daily with meals. 180 Tablet 3 024 Active warfarin (COUMADIN) 7.5 mg tabletIndications: Anti-phospholipid syndrome (HC),Pulmonary embolism on left (HC),Anticoagulati on monitoring, INR range 2-3 Has on hand but not currently using. 025 Active Ckfsr-8-OSH-EPA-Fi sh Oil 1,000 (120-180) mg capIndications:Dys lipidemia Take by mouth two times daily. 180 Capsule 3 025 Active calcium carbonate (CALTRATE) 600 mg calcium (1,500 mg) tabletIndications: Takes dietary supplements Take 1 Tablet (600 mg) by mouth two times daily with meals. 180 Tablet 3 025 Active multivitamin (MVI) tabletIndications: Takes dietary supplements Take 1 Tablet by mouth once daily. 90 Tablet 3 025 Active omeprazole (PRILOSEC) 20 mg Delayed-Release capsuleIndications :Gastroesophageal reflux disease without esophagitis Take 1 Capsule (20 mg) by mouth once daily before a meal. 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 Length of need: lifetime- dispense 1 four wheel walker with 4 wheels, handgrips and brake. Include seat and basket for personal items. 1 Each 025 Active blood-glucose meterIndications:T ype 2 diabetes mellitus with diabetic neuropathy, without long-term current use of insulin (HC) by Not Applicable route. Dispense meter covered by pts insurance. 1 Each 025 Active blood sugar diagnostic (Blood Glucose Test) stripIndications:T ype 2 diabetes mellitus with diabetic neuropathy, without long-term current use of insulin (HC) Test 2 times per day. 100 Each 025 Active lancetsIndications :Type 2 diabetes mellitus with diabetic neuropathy, without long-term current use of insulin (HC) As directed. Test 2 times per day. 100 Each 025 Active zinc oxide 20 % psteIndications:Sk in problem Apply topically to affected area(s). Use 2 or 3 times per day for moisture barrier 60 g 11 025 Active losartan 50 mg tabletIndications: HTN (hypertension) Take 1 Tablet (50 mg) by mouth once daily. 90 Tablet 3 025 Active oxybutynin XL 10 mg CR tabletIndications: Overactive bladder Take 1 Tablet (10 mg) by mouth once daily. 025 Active atorvastatin 40 mg tabletIndications: Dyslipidemia,PAD (peripheral artery disease) TAKE 1 TABLET BY MOUTH AT BEDTIME. 90 Tablet 2 025 Active clopidogreL 75 mg tabletIndications: PAD (peripheral artery disease) TAKE 1 TABLET (75 MG) BY MOUTH ONCE DAILY. 90 Tablet 2 025 Active azaTHIOprine 50 mg tabletIndications: Systemic lupus erythematosus, unspecified SLE type, unspecified organ involvement status (HC) TAKE TWO TABLETS (100MG) BY MOUTH ONCE DAILY IN THE MORNING 180 Tablet 025 Active enoxaparin 80 mg/0.8 mL injectionIndicatio ns:Anti-phospholip id syndrome (HC),Anticoagulati on monitoring, INR range 2-3,Pulmonary embolism on left (HC),History of DVT (deep vein thrombosis),Acute deep vein thrombosis (DVT) of popliteal vein of right lower extremity (HC),Chronic atrial fibrillation (HC) Inject 80 mg subcutaneous every 12 hours. 8 mL 1 025 Active hydroxychloroquine (PLAQUENIL) 200 mg tabletIndications: Systemic lupus erythematosus, unspecified SLE type, unspecified organ involvement status (HC) TAKE 1 TABLET (200 MG) BY MOUTH ONCE DAILY. 90 Tablet 1 025 Active warfarin (COUMADIN) 5 mg tabletIndications: Anti-phospholipid syndrome (HC),Anticoagulati on monitoring, INR range 2-3,Pulmonary embolism on left (HC),Acute deep vein thrombosis (DVT) of popliteal vein of right lower extremity (HC),Chronic atrial fibrillation (HC) Take by mouth 02/09: Hold; 02/10: Hold; 02/11: Hold; 02/12: Hold; 02/13: Hold; 02/14: Hold; 02/15: Hold; 02/16: Hold; 02/17: Hold; 02/18: Hold; 02/19: Hold; 02/20: Hold; 02/21: Hold; 02/22: Hold; 02/23: Hold; 02/24: Hold; 02/25: Hold; 02/26: Hold; 02/27: Hold; Otherwise 2.5 mg every Tue, Tue; 5 mg all other days in the evening OR as directed 025 Active cephalexin 250 mg capsuleIndications :PROPHYLAXIS Take 2 Capsules (500 mg) by mouth two times daily for 14 days. 56 Capsule 02/15/20 25 1:39 PM CDT 025 2024 Active hydroxychloroquine 200 mg tabletIndications: Systemic lupus erythematosus, unspecified SLE type, unspecified organ involvement status (HC) TAKE 1 TABLET (200 MG) BY MOUTH ONCE DAILY. 90 Tablet 025 2024 Discontinued warfarin (COUMADIN) 5 mg tabletIndications: Anti-phospholipid syndrome (HC),Anticoagulati on monitoring, INR range 2-3,Pulmonary embolism on left (HC),Acute deep vein thrombosis (DVT) of popliteal vein of right lower extremity (HC),Chronic atrial fibrillation (HC) Take by mouth 2.5 mg every Mon, Charito; 5 mg all other daysin the evening OR as directed 80 Tablet 025 2024 Discontinued( Other - add note to specify (E-cancel not sent)) Active Problems Problem Noted Date Diagnosed Date Atherosclerosis of [place] of extremities with rest pain, right leg 08/09/2024 History of DVT (deep vein thrombosis) 09/28/2023 [...] below knee amputation 01/01/2014 Hydrocephalus 12/27/2013 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 Oxycodone 10mg #60 per month. Diagnosis: Below the knee amputation and in physical therapy. Pharmacy [facility] BELLA. Trang Escamilla DO .................... 11/14/2013 9:44 PM [...] Encounters Date Type Department Care Team Description 02/19/2025 Telephone [facility] [address] [facility] [place] [address] Truong Carpio MD Anticoagulation (Platelet) 02/19/2025 Anticoagulation (warfarin) [facility] [address] [facility] [place] [address] Truong Carpio MD Error-please disregard (opened in error) 02/14/2025 11:31 AM CDT Anesthesia Event [facility] [address] [place] [address] Roman Ignacio MD Santiago, Matthew Ryan, CONSTANCE 02/14/2025 10:06 AM CDT - 02/14/2025 12:00 PM CDT Surgery [facility] [address] [place] [address] Lilian Aguilar MD INTERSTIM STAGE ONE SACRAL NEUROMODULATION 02/14/2025 8:44 AM CDT - 02/14/2025 7:28 PM CDT Hospital Encounter [facility] [address] [place] [address] Lilian Aguilar MD Overactive bladder (Primary Dx) Discharge Disposition: Assisted Facility 02/14/2025 Travel 02/13/2025 2:15 PM CDT Office Visit [facility] [address] [place] [address] Tiana Deleon, Preoperative Exam (02/14/25-bladder/INTER STIM STAGE ONE SACRAL NEUROMODULATION) 02/12/2025 Travel 02/12/2025 Telephone [facility] [address] [place] [address] Truong Carpio MD 02/08/2025 Telephone [facility] [address] [place] [address] Truong Carpio MD Appointment Request (PROTIME INR) 01/31/2025 Telephone [facility] [address] [place] [address] Truong Carpio MD Anticoagulation (orders) 01/31/2025 Telephone [facility] [address] [place] [address] VoteTruong gutierrez MD Anticoagulation 01/31/2025 Telephone [facility] [address] [place] [address] VoTruong malik MD Medication Management 01/31/2025 Telephone [facility] [address] [place] [address] Truong Carpio MD Anticoagulation 01/31/2025 Telephone [facility] [address] [place] [address] Truong Carpio MD Anticoagulation (Abnormal bridging labs. ) 01/31/2025 Anticoagulation (warfarin) [facility] [address] [place] [address] Nurse, Ahg Anticoag Anticoagulation 01/30/2025 3:00 PM CDT Orders Only [facility] [address] [place] [address] Lab, [place] <No scans attached> 01/30/2025 Travel 01/29/2025 Telephone [facility] [address] [place] [address] Truong Carpio MD 01/21/2025 Refill [facility] [address] [place] [address] Dg Del Castillo MD Refill Request (Hydroxychloroquine) 01/15/2025 Telephone [facility] [address] [place] [address] Truong Carpio MD 01/15/2025 Telephone [facility] [address] [place] [address] Truong Carpio MD 01/09/2025 Telephone [facility] [address] [facility] [place] [address] Truong Carpio MD Anticoagulation 01/08/2025 1:30 PM CDT Orders Only [facility] [address] [facility] [place] [address] Lab, [place] <No scans attached> 01/08/2025 Anticoagulation (warfarin) [facility] [address] [place] [address] Nurse, Ahg Anticoag Anticoagulation (MARGO) 01/08/2025 Travel 12/31/2024 Telephone [facility] [address] [place] [address] Truong Carpio MD Anticoagulation 12/26/2024 Anticoagulation (warfarin) [facility] [address] [place] [address] Nurse, Ahg Anticoag Anticoagulation (Lab ) 12/25/2024 12:45 PM CDT Orders Only [facility] [address] [place] [place] [address] Lab, [place] Lab 12/25/2024 Travel 12/20/2024 Travel 12/18/2024 Anticoagulation (warfarin) [facility] [address] [place] [place] [address] Nurse, Ahg Anticoag Anticoagulation (Chart update) 12/18/2024 Telephone [facility] [address] [place] [address] Truong Carpio MD Anticoagulation (Procedure rescheduled to Sept) 12/17/2024 Telephone [facility] [address] [place] [place] [address] Truong Carpio MD Anticoagulation (Procedure hold.) 12/17/2024 Anticoagulation (warfarin) [facility] [address] [place] [place] [address] Nurse, Ahg Anticoag Anticoagulation (Chart update ) 12/13/2024 Telephone [facility] [address] [place] [address] Truong Carpio MD Anticoagulation (abnormal labs) 12/13/2024 Telephone [facility] [address] [place] [address] Truong Carpio MD Anticoagulation (OPA - Lovenox) 12/12/2024 1:30 PM CDT Orders Only [facility] [address] [place] [address] Lab, [place] Lab 12/12/2024 Anticoagulation (warfarin) [facility] [address] [place] [address] Nurse, Ahg Anticoag Anticoagulation 12/12/2024 Travel 12/10/2024 Refill [facility] [address] [facility] [address] [facility] [address] [place] [address] Dg Del Castillo MD Refill Request (Azathioprine) 12/10/2024 Refill [facility] [address] [place] [address] Truong Carpio MD Refill Request (Clopidogrel) 12/10/2024 Refill [facility] [address] [place] [address] Truong Carpio MD Refill Request (Atorvastatin) 12/06/2024 Anticoagulation (warfarin) [facility] [address] [place] [address] Nurse, g Anticoag Anticoagulation (Chart update) 12/06/2024 Telephone [facility] [address] [place] [address] Truong Carpio MD Anticoagulation (01/03/25 Procedure) 12/06/2024 Telephone [facility] [address] [place] [address] Truong Carpio MD Anticoagulation 12/05/2024 10:25 AM CDT Office Visit [facility] [address] [place] [address] Truong Carpio MD Preoperative Exam (12/20/24) 12/05/2024 Travel 11/30/2024 Travel 11/21/2024 Telephone [facility] [address] [place] [address] Truong Carpio MD Anticoagulation (Warfarin hold orders) 11/21/2024 Anticoagulation (warfarin) [facility] [address] [place] [address] 1, [facility] Anticoagulation 11/20/2024 3:00 PM CDT Orders Only [facility] [address] [place] [address] Lab, [place] Lab 11/20/2024 Travel 11/20/2024 Telephone [facility] [address] [place] [place] [address] VoTruong malik MD 11/20/2024 Telephone [facility] [address] [place] [place] [address] Truong Carpio MD 11/20/2024 Telephone [facility] [address] [place] [place] [address] Truong Carpio MD from Last 3 Months Immunizations Immunization Administration Dates Next Due COVID-19 VACCINE SPIKEVAX (M ODERNA 50MCG/0.5ML) 12YO+ PFS 04/25/2024,09/28/2023,03/28/2023 COVID-19 vaccine (Moderna 100mcg/0.5mL) PF, MDV 09/18/2021,04/02/2021,08/06/2020,2020 COVID-19 vaccine (Moderna 50mcg/0.5mL) 12YO+ BIVALENT PF, MDV 05/28/2022 Hepatitis B (Adult) 04/19/2013,01/17/2013,2012 Human Papilloma Virus Vaccine 10/31/2013 INFLUENZA, IIV3 PF (AGE >= 6 MO) 04/25/2024 Influenza, IIV3 (Age >=3 years) 02/27/20 13,02/29/2012,03/24/2011,2009 Influenza, IIV4 02/22/2022,,02/14/2020,2017,03/17/2017,03/24/2016,02/19/2015,0 02/28/2014 Influenza, IIV4 (=>6mos) MDV 03/01/2019 Influenza, Inactivated AIIV4 (Age 65+ Years) Preserv Free 04/05/2023 Pneumococcal Poly,23-Valent (Pneumovax) 10/28/2011 Pneumococcal conj 13-Valent [...] drink = 0.6 oz pur e alcohol) PHQ-2 Answer Date Recorded PHQ-2 TOTAL SCORE 2 10/10/2024 Social Connections Answer Date Recorded Do you [...] Ambulatory Vulnerability No t on file 03/17/2024 Utilities Answer Date Recorded Do you have trouble paying f or utilities (for example, heat, electricity, water, phone)? 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 Gender Identity Not on file Sexual Orientation Not on file Obstetrics History Last Filed Vital Signs Vital Sign Reading Time Taken Comments Blood Pressure 145/62 02/14/2025 2:45 PM CDT Pulse 76 02/14/2025 2:45 PM CDT Temperature 36.5 C (97.7 F) 02/14/2025 2:45 PM CDT Respiratory Rate 18 02/14/2025 2:45 PM CDT Oxygen Saturation 92% 02/14/2025 2:45 PM CDT Inhaled Oxygen Concentration - - Weight 92.5 kg (204 lb) 02/14/2025 9:00 AM CDT Height 165.1 cm (5' 5) 02/14/2025 9:00 AM CDT Body Mass Index 33.95 02/14/2025 9:00 AM CDT Plan of Treatment Upcoming Encounters Date Type Department Care Team (Late st Contact Info) Description 02/25/2025 3:00 PM CDT Orders Only [facility] [address] [place] [address] [place], [place] 02/27/2025 10:40 AM CDT Office Visit [facility] [address] [facility] [address] [place] [address] Dg Del Castillo MD [address] [facility] [address] [place] [address] 02/28/2025 10:30 AM CDT Hospital Encounter [facility] [address] [place], [place] [id number] Lilian Aguilar MD [address] [place] [phone] 02/28/2025 10:30 AM CDT - 02/28/2025 11:50 AM CDT Surgery [facility] [address] [place] [address] Lilian Aguilar MD [address] [place] [address] STAGE TWO INTERSTIM BATTERY, IMPLANTABLE PULSE GENERATOR PLACEMENT 03/04/2025 10:00 AM CDT Orders Only [facility] [address] [place] [address] [place] 03/28/2025 10:00 AM CDT Office Visit [facility] [address] [place] [address] VotelTruong MD [address] [place] [address] Scheduled Procedures Name Priority Associated Diagnoses Date/Ti me IMPLANT SACRAL LEAD STAGE TWO Tier 2: within 30 days Overactive bladder, Full incontinence of feces 02/28/2025 10:30 AM CDT REMOVAL NEUROSTIMULATOR LEAD Tier 2: within 30 days Overactive bladder, Full incontinence of feces 02/28/2025 10:30 AM CDT Health Maintenance Due Date Last Done Comments Pneumococcal series for age 50+ (3 of 3 - PCV20 or PCV21) 10/31/2018 10/31/2013, 10/28/2011 COVID-19 vaccine series (9 - Moderna risk 2023- season) 2025 04/25/2024, 09/28/2023, 03/28/2023, Additional history exists Influenza Vaccine (#1) 2025 , 04/05/2023, 02/22/2022, Additional history exists Fecal testing sDNA-FIT (Odon guard) for age 45-75 06/25/2025 06/25/2022 Depression screening for age 12+ 10/10/2025 10/10/2024, 10/10/2024, 10/02/2024, Additional history exists BMI (ht and wt on same day) for age 18+ 12/05/2025 12/05/2024, 09/28/2023, 08/23/2023, Additional history exists Lipids for age 45-75 09/27/2029 09/27/2024, 09/28/2023, 06/21/2022, Additional history exists Tetanus booster 01/15/2032 01/14/2022, 10/28/2011 RSV vaccine for adults or (1 - 1-dose 75+ series) 2041 HIV for age 15-65 Completed 07/03/2012 Hepatitis C screening for ag e 18-79 Completed 07/03/2012 Hepatitis B series for 19+ Completed 04/19, 01/17/2013, 10/16/2012 Zoster (shingles) series for age 50+ Completed 05/17/2018, 05/17/2018, 02/24/2018, Additional history exists Medical Devices Implanted Type Area Linseed Oil Order Filler Device Identifier Shelf Expiration Date Model / Serial / Lot Shunt System 15cm Stra [id number] Nmtneuroscie - [id number] Implanted:Qty: 1 on 12/28/2013 at [facility] Right: Cranium OxThera Rita [id number]# / / [id number] Graft Vasc 6x40mm 60cm Propaten - [id number] Implanted:Qty: 1 on 03/16/2024 by Mj Collado MD at [facility] Right: Leg W [place] 10/30/2026 [id number] / [id number] / Lead Kit 4.32mm Spacing 28cm Length Interstim - [id number] Implanted:Qty: 1 on 02/14/2025 by Lilian Aguilar MD at [facility] [employer] Pain Therapy 05/08/2026 [id number] / / [id number] Cable Perk Ext 4.32mm Interstim Lead Implanted:Qty: 1 on 02/14/2025 by Lilian Aguilar MD at [facility] 10/31/2025 [id number] / / [id number] Description:Cable Perk Ext 4 .32mm Interstim Lead Procedures Procedure Name Priority Date/Time Associated Diagnosis Comments GLUCOSE METER Timed 02/14/2025 1:15 PM CDT XR C-ARM GREATER 1 HR Routine 02/14/2025 12:32 PM CDT ENDOTRACHEAL TUBE Routine 02/14/2025 12:10 PM CDT ENDOTRACHEAL TUBE Routine 02/14/2025 12:10 PM CDT IMPLANT SACRAL LEAD STAGE ONE Tier 2: within 30 days 02/14/2025 11:24 AM CDT Full incontinence of feces, Overactive bladder Case Notes Agus Flood from [place] was notified via email and Phone. Have not received an acknowledgement as of yet.FOLLOW UP PHONE CALL ON 02/04/2025 LEFT VOICE MAIL NO RESPONSE GLUCOSE METER Timed 02/14/2025 9:29 AM CDT SCAN-CARDIAC STRIP 02/14/2025 12:00 AM CDT RED CELL MORPHOLOGY STAT 02/13/2025 3:30 PM CDT Pre-op exam PLATELET ESTIMATE STAT 02/13/2025 3:30 PM CDT Pre-op exam MANUAL DIFFERENTIAL STAT 02/13/2025 3:30 PM CDT Pre-op exam CBC WITH AUTO DIFFERENTIAL STAT 02/13/2025 3:30 PM CDT Pre-op exam CBC WITH AUTO DIFFERENTIAL STAT 02/13/2025 3:30 PM CDT Pre-op exam BASIC METABOLIC PANEL STAT 02/13/2025 3:30 PM CDT Pre-op exam CBC W PLT NO DIFF Routine 01/30/2025 2:20 PM CDT Anti-phospholipid syndrome (HC) Anticoagulation monitoring, INR range 2-3 history of Pulmonary embolism History of DVT (deep vein thrombosis) CREATININE Routine 01/30/2025 2:20 PM CDT Anti-phospholipid syndrome (HC) Anticoagulation monitoring, INR range 2-3 history of Pulmonary embolism History of DVT (deep vein thrombosis) PROTIME-INR Routine 01/30/2025 2:20 PM CDT Anti-phospholipid syndrome (HC) Anticoagulation monitoring, INR range 2-3 history of Pulmonary embolism History of DVT (deep vein thrombosis) PROTIME-INR Routine 01/08/2025 1:08 PM CDT Anti-phospholipid syndrome (HC) Anticoagulation monitoring, INR range 2-3 history of Pulmonary embolism History of DVT (deep vein thrombosis) PROTIME-INR Routine 12/25/2024 1:03 PM CDT Anti-phospholipid syndrome (HC) Anticoagulation monitoring, INR range 2-3 history of Pulmonary embolism History of DVT (deep vein thrombosis) CBC W PLT NO DIFF Routine 12/12/2024 11:25 AM CDT Anti-phospholipid syndrome (HC) Anticoagulation monitoring, INR range 2-3 history of Pulmonary embolism History of DVT (deep vein thrombosis) CREATININE Routine 12/12/2024 11:25 AM CDT Anti-phospholipid syndrome (HC) Anticoagulation monitoring, INR range 2-3 history of Pulmonary embolism History of DVT (deep vein thrombosis) PROTIME-INR Routine 12/12/2024 11:24 AM CDT Anti-phospholipid syndrome (HC) Anticoagulation monitoring, INR range 2-3 history of Pulmonary embolism History of DVT (deep vein thrombosis) PROTIME-INR Routine 11/20/2024 3:34 PM CDT Anti-phospholipid syndrome (HC) Anticoagulation monitoring, INR range 2-3 history of Pulmonary embolism History of DVT (deep vein thrombosis) LIPID PANEL W REFLEX MEASURED LDL Routine 09/27/2024 10:34 AM CDT Type 2 diabetes mellitus with diabetic neuropathy, without long-term current use of insulin (HC) SDNA-FIT EXTERNAL (COLOGUARD) Routine 06/25/2022 7:30 AM 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 GLUCOSE METER 149(H) 65 - 100 mg/dL 02/14/2025 1:17 PM CDT [facility] Blood BLOOD SPECIMEN / Unknown 02/14/2025 1:15 PM CDT 02/14/2025 1:17 PM CDT Lilian Aguilar MD CHEMISTRY Final Result [facility] [address] [place] [address], [place] * XR C-ARM GREATER 1 HR (02/14/2025 12:32 PM CDT) Anatomical Region Laterality Modality Other Narrative 02/14/2025 11:55 AM CDT 43 seconds fluoroscopy time was provided. See operative/procedure report for further information. Lilian Aguilar MD FLUOROSCOPY Final Result * HCHG TUBE PR1, HCHG STYLET PR1 (02/14/2025 12:10 PM CDT) Narrative Blas London CRNA - 02/14/2025 12:10 PM CDT Blas London CRNA 02/14/2025 12:10 PM Procedure: ETT Patient location during procedure: OR ETT Properties Mask Ventilation: easy Final Technique: direct laryngoscopy Type: straight Location: oral Cuffed: yes Tube Size: 7.5 mm Stylet: yes Laryngoscope Blade: Flower Blade Size: 2 Cormack-Lehane Grade View: 1 Insertion Attempts: 1 Placement Verification: auscultation, end tidal CO2 and symmetrical chest wall movement Assessment: pharynx clear, atraumatic and dentition unchanged Secured at: 23 Measured From: teeth Difficulty: 0 (not difficult) us Roman Ignacio MD ANESTHESIA PX NOTE ORDER SUSAN Final Result * SCAN-CARDIAC STRIP (02/14/2025 12:00 AM CDT) Narrative 02/14/2025 12:00 AM CDT Ordered by an unspecified provider. us Other Clinical Staff OTHER Final Resul t * (ABNORMAL) CBC WITH AUTO DIFFERENTIAL (02/13/2025 3:30 PM CDT) WHITE BLOOD COUNT 5.0 4.5 - 11.0 thou/cu mm 02/13/2025 6:[address] [facility] RED BLOOD COUNT 3.80(L) 4.30 - 5.90 mil/cu mm 02/13/2025 6:[address] [facility] HEMOGLOBIN 10.8(L) 13.5 - 17.5 g/dL 02/13/2025 6:[address] [facility] HEMATOCRIT 33.4(L) 37.0 - 53.0 % 02/13/2025 6:[address] [facility] MCV 88 80 - 100 fL 02/13/2025 6:[address] [facility] MCH 28.4 26.0 - 34.0 pg 02/13/2025 6:[address] [facility] MCHC 32.3 32.0 - 36.0 g/dL 02/13/2025 6:[address] [facility] RDW 16.7(H) 11.5 - 15.5 % 02/13/2025 6:[address] [facility] PLATELET COUNT 443(H) 140 - 440 thou/cu mm 02/13/2025 6:[address] [facility] MPV 11.1(H) 6.5 - 11.0 fL 02/13/2025 6:[address] [facility] Blood BLOOD SPECIMEN / Unknown [facility] / Unknown 02/13/2025 3:30 PM CDT 02/13/2025 3:30 PM CDT [facility] - 02/13/2025 6:48 PM CDT Preop less than 24 hours. us Tiana Deleon DO HEMATOLOGY Final Resul t Performing Organization Address City/[facility]/ZIP Co de Phone Number [facility] [address] [place] [address] * (ABNORMAL) RED CELL MORPHOLOGY (02/13/2025 3:30 PM CDT) Pathologist [facility] ELLIPTOCYTES Few 02/13/2025 6:48 PM CDT [facility] RBC COMMENT Present(A ) RBC morphology appears normal, RBC morphology within normal limits for newborns. 02/13/2025 6:48 PM CDT [facility] Blood BLOOD SPECIMEN / Unknown [facility] / Unknown 02/13/2025 3:30 PM CDT 02/13/2025 3:30 PM CDT [facility] - 02/13/2025 6:48 PM CDT Preop less than 24 hours. us Tiana Deleon DO HEMATOLOGY Final Resul t Performing Organization Address [facility]/ZIP Co de Phone Number [facility] [address] [place] [address] * (ABNORMAL) PLATELET ESTIMATE (02/13/2025 3:30 PM CDT) [facility] PLATELET ESTIMATE Increased (A) Adequate, No estimate 02/13/2025 6:48 PM CDT [facility] Blood BLOOD SPECIMEN / Unknown [facility] / Unknown 02/13/2025 3:30 PM CDT 02/13/2025 3:30 PM CDT [facility] - 02/13/2025 6:48 PM CDT Preop less than 24 hours. us Tiana Deleon DO HEMATOLOGY Final Resul t [facility] [address] [place] [address] * (ABNORMAL) MANUAL DIFFERENTIAL (02/13/2025 3:30 PM CDT) % NEUTROPHILS 67.0 % 02/13/2025 6:48 PM CDT [facility] % LYMPHOCYTES 9.0 % 02/13/2025 6:48 PM CDT [facility] % MONOCYTES 18.0 % 02/13/2025 6:48 PM T [facility] % EOSINOPHILS 4.0 % 02/13/2025 6:48 PM CDT [facility] % BASOPHILS 2.0 % 02/13/2025 6:48 PM CDT [facility] NEUTROPHILS ABSOLUTE 3.4 1.7 - 7.0 thou/cu mm 02/13/2025 6:48 PM CDT [facility] LYMPHOCYTES ABSOLUTE 0.5(L) 0.9 - 2.9 thou/cu mm 02/13/2025 6:48 PM CDT [facility] MONOCYTES ABSOLUTE 0.9(H) <0.9 thou/cu mm 02/13/2025 6:48 PM CDT [facility] EOSINOPHILS ABSOLUTE 0.2 <0.5 thou/cu mm 02/13/2025 6:48 PM T [facility] BASOPHILS ABSOLUTE 0.1 <0.3 thou/cu mm 02/13/2025 6:48 PM T [facility] Blood BLOOD SPECIMEN / Unknown [facility] / Unknown 02/13/2025 3:30 PM CDT 02/13/2025 3:30 PM CDT [facility] - 02/13/2025 6:48 PM CDT Preop less than 24 hours. us Tiana Huntert DO HEMATOLOGY Final Resul t [facility] [address], [place] [id number] * (ABNORMAL) BASIC METABOLIC PANEL (02/13/2025 3:30 PM CDT) Pathologist [facility] SODIUM 139 136 - 145 mmol/L 02/13/2025 7:[address] [facility] POTASSIUM 4.2 3.5 - 5.1 mmol/L 02/13/2025 7:[address] [facility] CHLORIDE 102 98 - 107 mmol/L 02/13/2025 7:[address] [facility] CO2,TOTAL 25 22 - 29 mmol/L 02/13/2025 7:[address] [facility] ANION GAP 12 5 - 18 02/13/2025 7:[address] [facility] GLUCOSE 117(H) 70 - 99 mg/dL 02/13/2025 7:[address] [facility] CALCIUM 9.8 8.8 - 10.4 mg/dL 02/13/2025 7:[address] [facility] Comment: Reference ranges for this test were updated on 04/17/2024 to reflect our healthy population more accurately. Reference range changes are not retroactively applied to results, but previous results using the same methodology can be interpreted in the context of the new reference range. BUN 13 6 - 20 mg/dL 02/13/2025 7:[address] [facility] CREATININE 0.67(L) 0.70 - 1.20 mg/dL 02/13/2025 7:[address] [facility] BUN/CREAT RATIO 19 10 - 20 7:[address] [facility] eGFR >90 >90 mL/min/1. 73m2 02/13/2025 7:[address] [facility] Comment:As of 2021, eG FR is calculated by the CKD-EPI creatinine equation without race adjustment. eGFR can be influenced by muscle mass, exercise, and diet. The reported eGFR is an estimation only and is only applicable if the renal function is stable. Blood BLOOD SPECIMEN / Unknown [facility] / Unknown 02/13/2025 3:30 PM CDT 02/13/2025 3:30 PM CDT us Tiana Schwartz Detert DO CHEMISTRY Final Resul t [facility] [address] [place] [address] * (ABNORMAL) CBC W PLT NO DIFF [93258.1] (01/30/2025 2:20 PM CDT) Only the most recent of2 resultswithin the time period is included. WHITE BLOOD CELL COUNT 4.5 3.8 - 10.8 Thousand/ uL 01/31/2025 7:26 AM CDT [facility] RED BLOOD CELL COUNT 3.90(L) 4.20 - 5.80 Million/u L 01/31/2025 7:26 AM CDT [facility] HEMOGLOBIN 10.9(L) 13.2 - 17.1 g/dL 01/31/2025 7:26 AM CDT [facility] HEMATOCRIT 35.4(L) 38.5 - 50.0 % 01/31/2025 7:26 AM CDT [facility] MCV 90.8 80.0 - 100.0 fL 01/31/2025 7:26 AM CDT [facility] MCH 27.9 27.0 - 33.0 pg 01/31/2025 7:26 AM CDT [facility] MCHC 30.8(L) 32.0 - 36.0 g/dL 01/31/2025 7:26 AM CDT [facility] Comment: For adults, a slight decrease in the calculated MCHC value (in the range of 30 to 32 g/dL) is most likely not clinically significant; however, it should be interpreted with caution in correlation with other red cell parameters and the patient's clinical condition. RDW 15.8(H) 11.0 - 15.0 % 01/31/2025 7:26 AM CDT [facility] PLATELET COUNT 518(H) 140 - 400 Thousand/ uL 01/31/2025 7:26 AM CDT [facility] MPV 11.0 7.5 - 12.5 fL 01/31/2025 7:26 AM CDT [facility] Blood BLOOD SPECIMEN / Unknown [facility] / Unknown 01/30/2025 2:20 PM CDT 01/30/2025 2:25 PM CDT us Truong Carpio MD HEMATOLOGY Final Re sult [facility] [id number] [place] [address], * CREATININE [85153.2] (01/30/2025 2:20 PM CDT) Only the most recent of2 resultswithin the time period is included. CREATININE 0.89 0.70 - 1.30 mg/dL 01/31/2025 4:36 AM CDT [facility] EGFR 99 > OR = 60 mL/min/1.73 m2 01/31/2025 4:36 AM CDT [facility] Blood BLOOD SPECIMEN / Unknown [facility] / Unknown 01/30/2025 2:20 PM CDT 01/30/2025 2:25 PM CDT Truong Carpio MD CHEMISTRY Final Re sult [employer] [address] [address] [place] [address], * (ABNORMAL) PROTIME-INR [44825.0] - Standing Order (01/30/2025 2:20 PM CDT) Only the most recent of5 resultswithin the time period is included. INR 3.5(H) <1.3 01/30/2025 10:38 PM CDT [facility] PROTIME 41.0(H) 10.6 - 12.4 sec 01/30/2025 10:38 PM CDT [facility] Blood BLOOD SPECIMEN / Unknown [facility] / Unknown 01/30/2025 2:20 PM CDT 01/30/2025 2:25 PM CDT Narrative [facility] - 01/30/2025 10:38 PM CDT Therapeutic Range 2.0-3.0 for most anticoagulated patients [...] Truong Carpio MD HEMATOLOGY Final Re sult [facility] [address] [place] [address], * LIPID PANEL W REFLEX MEASURED LDL (09/27/2024 10:34 AM CDT) Pathologist [facility] CHOLESTEROL, TOTAL 148 <200 mg/dL [facility] HDL CHOLESTEROL 42 > OR = 40 mg/dL [facility] TRIGLYCERIDES 127 <150 mg/dL [facility] LDL-CHOLESTEROL 84 mg/dL (calc) [facility] Comment: Reference range: <100 Desirable range <100 mg/dL for primary prevention; <70 mg/dL for patients with CHD or diabetic patients with > or = 2 CHD risk factors. LDL-C is now calculated using the William-Schroeder calculation, which is a validated novel method providing better accuracy than the Friedewald equation in the estimation of LDL-C. William SS et al. ABBIE. 2013;310(19): 2303-2741 (http://education.Bloom.com/faq/YQP097) CHOL/HDLC RATIO 3.5 <5.0 (calc) [facility] NON HDL CHOLESTEROL 106 <130 mg/dL (calc) [facility] Comment: For patients with diabetes plus 1 major ASCVD risk factor, treating to a non-HDL-C goal of <100 mg/dL (LDL-C of <70 mg/dL) is considered a therapeutic option. Blood BLOOD SPECIMEN / Unknown 09/27/2024 10:34 AM CDT 09/27/2024 10:36 AM CDT Narrative [facility] - 09/28/2024 5:24 AM CDT FASTING:NO FASTING: NO us Truong Carpio MD CHEMISTRY Final Re sult [facility] [address] [place] [address], [email or web address] [facility] [address] [place] [address] * SDNA-FIT EXTERNAL (COLOGUARD) (06/25/2022 7:30 AM MANAGER OF DRILLING) NONINV COLON CA DNA+OCC BLD SCRN STL-IMP Negative Negative 06/30/2022 7:11 PM MANAGER OF DRILLING [employer] (CLIA #:[id number]) Comment: NEGATIVE TEST RESULT. A negative Cologuard [...] screened with both Cologuard and colonoscopy. (Rosario T. et al, N Engl J Med 2014;370(14):7254-9753) The normal value (reference range) for this assay is negative. COLOGUARD RE-SCREENING RECOMMENDATION: Periodic colorectal cancer screening is an important part of preventive healthcare for asymptomatic individuals at average risk for colorectal cancer. Following a negative Cologuard result, the [place] [employer] and U.S. Multi-Society Task Force screening guidelines recommend a Cologuard re-screening interval of 3 years. References: [place] [employer] Guideline for Colorectal Cancer Screening: https://www.cancer.org/cancer/lqxij-sdsyie-wciito/wimfqekwi-yxuksrrao-wxakpcm/ac s-rec ommendations.html.; Beltran BRODERICK, Jessica NIELSON, Nesha CortesK, Colorectal Cancer Screening: Recommendations for Physicians and Patients from the U.S. Multi-Society Task Force on Colorectal Cancer Screening , Am J Gastroenterology 2017; 112:3514-0663. TEST DESCRIPTION: Composite algorithmic analysis of stool [...] Geller et al, N Engl J Med 2014;370(14):2379-3218.) Cologuard may produce a false negative or false positive result (no colorectal cancer or precancerous polyp present at colonoscopy follow up). A negative Cologuard test result does not guarantee the absence of CRC or advanced adenoma (pre-cancer). The current Cologuard screening interval is every 3 years. ([place] [employer] and U.S. Multi-Society Task Force). Cologuard performance data in a 10,000 patient pivotal study using colonoscopy as the reference method can be accessed at the following location: www.[employer]/results. Additional description of the Cologuard test process, warnings and precautions can be found at www.AMOtechogHoodinrd.com. Stool specimen (specimen) (Rectum) 06/25/2022 7:30 AM MANAGER OF DRILLING 06/26/2022 2:04 PM MANAGER OF DRILLING us Trang Escamilla DO URINE Final Resul t [employer] (CLIA #:[id number]) [address] [place] [address] [phone] * PATIENT SOURCE RAPID HIV (07/03/2012 2:24 PM MANAGER OF DRILLING) SOURCE RAPID HIV SCREEN Non-react alex (Nonreact alex) [facility] Blood specimen (specimen) BLOOD SPECIMEN / Unknown 07/03/2012 2:24 PM MANAGER OF DRILLING 07/03/2012 2:19 PM MANAGER OF DRILLING Trangart FriedmanMelodeo DO SEND OUTS Final Resul t [facility] INTERNAL ZIP [address] [place] [address] * PATIENT SOURCE ANTI HCV (07/03/2012 2:24 PM MANAGER OF DRILLING) SOURCE ANTI HCV Non-react alex [facility] Blood specimen (specimen) BLOOD SPECIMEN / Unknown 07/03/2012 2:24 PM MANAGER OF DRILLING 07/03/2012 2:19 PM MANAGER OF DRILLING Trang Mesha [employer] DO SEND OUTS Final Resul t Performing Organization Address City/[facility]/ZIP Co de Phone Number [facility] [place]NAL ZIP [phone] [place] [address] from Last 3 Months or Most Recently Relevant to Health Maintenance Additional Health Concerns Infection Onset Date Last Indicated MDRO Clearance Comment:Hx MDRO 201203/18/2024 03/18/2024 Insurance MEDICARE PART A HB ONLY [facility] MR [id number] [employer] Advance Directives Documents on File Type Date Recorded Patient Chlorine Cell Tender Expl anation POLST 10/10/2023 Healthcare Directive 11/22/2017 10:42 AM I NCOMPLETE POLST 10/18/2017 11:33 AM 10/18/2023 POLST 07/25/2013 10:41 AM Healthcare Directive 06/25/2013 10:46 AM H ealthcare Directive & POA * Full Code (Latest Code Status on File) Date Activated Date Inactivated Comments 02/14/2025 8:53 AM 02/14/2025 9:33 PM Question Answer Comments Code Status Discussion: Unable to Assess Preferences, Provider to review later * Full Code Date Activated Date Inactivated Comments 03/16/2024 8:15 [...] Comments 08/08/2018 9:08 AM 08/09/2018 2:35 PM Care Teams Manager Chemical Relationship Specialty Start Date End Date Votel, Truong Tom MD [address] [place] [address] PCP - General Family Practice 10/25/23 Henry Mckeon MD Consulting Physician Radiology - Diagnostic 05/16/13 Other-None . Land Leases [employer] Rentals Manager Registered Nurse 06/07/13 Jose Flower MD . Consulting Physician Surgery - General 07/25/13 Emmanuel Foy MD . Hematology and Oncology 10/11/13 [place] [address] [place] [address] Ophthalmology Machine Former 10/07/16 Dg Del Castillo MD [address] [facility] [address] [place] [address] Rheumatology 05/31/23
== END 2025-02-19 10:18 | disposition home or self-care (01) ==
LOC: NPINS 10:17
PROVIDERS: PCP Family Medicine; Visit Provider Family Medicine
DX: I48.20 Chronic atrial fibrillation, unspecified (principal)
CPT/HCPCS: 85049

== ENCOUNTER 2025-02-26 10:18 | Outpatient (REF) | payer MEDICARE, SELFPAY ==
--- OUTSIDE RECORDS SUMMARY | 2025-02-27 00:20 | XMS_ITS | Clinical Summary ---
Author Organization [facility] Address [address] [place] [address] , [address] [place] [address] Phone Care Team Providers Care Private Branch Exchange Operator Name Role Phone Mesha Treadwell Conditions or Problems Problem Name Problem Code Onset Date Status Entry Date Provider Comment Standard Description Annotate Lumbosacral radiculopath y 9832670 (SNOMED CT) 08/09 Active 08/09 Wetson Strange MD Lumbosacral radiculopathy PE 50054236 (SNOMED CT) 08/09 Active 08/09 Weston Strange MD Pulmonary embolism Antiphosphol ipid antibody syndrome 92671707 (SNOMED CT) 08/09 Active 08/09 Weston Strange MD Antiphospholipid syndrome SLE 33554955 (SNOMED CT) 08/09 Active 08/09 Weston Strange MD Systemic lupus erythematosus Diabetes mellitus, type II with peripheral neuropathy [id number] (SNOMED CT) 08/09 Active 08/09 Weston Strange MD Peripheral neuropathy due to type 2 diabetes mellitus Hydrocephalu s 085678323 (SNOMED CT) 08/09 Active 08/09 Weston Strange MD Hydrocephalus Medications Medication Instructions Start Date Stop Date Generic Name NDC Provider GABAPENTIN 300 MG CAPS Take 2 capsule three times a day ; may take extra 300 mg at night if pain keeps you up 10/04 gabapentin [id number] Kari Faye PA-C GABAPENTIN 300 MG CAPS Take 2 capsule by mouth twice a day, and take 3 capsule by mouth every night at bedtime 07/17 gabapentin 56605901680 Kari Faye PA-C GABAPENTIN 300 MG CAPS Take 2 capsule three times a day 06/20 gabapentin 56501939593 Weston Strange MD GABAPENTIN 300 MG CAPS Take 2 capsule three times a day ; may take extra 300 mg at night if pain keeps you up 10/04 gabapentin 17073104826 Weston Strange MD Jaons-3-[id number]-EPA-Fish Oil 1,000 mg Take 1 capsule by mouth twice a day 06/13 120 mg-180 mg Weston Strange MD WARFARIN SODIUM 7.5 MG TABS Take by mouth 7.5 mg (7.5 mg x 1) every Sun; 5 mg (5 mg x 1) all other days in the evening OR as directed warfarin 35239094508 Weston Strange MD OMEPRAZOLE 20 MG CPDR Take 20 mg by mouth every morning omeprazole 89370158022 Weston Strange MD ACETAMINOPHEN 500 MG TABS Take 500 mg by mouth four times a day as needed acetaminophen 46844325745 Weston Strange MD wheelchair Wheelchair: Manual Wheelchair: Patient continues to need to use daily his manual wheelchair and the wheelchair will continue to need repairs for the next 12 months 06/15 wheelchair Weston Strange MD VITAMIN D3 25 MCG (1000 UT) CAPS Take 1 capsule by mouth once a day 11/06 cholecalciferol (vitamin d3) 39009046054 Weston Strange MD AZATHIOPRINE 50 MG TABS Take 1.5 tablet by mouth every morning 07/31 azathioprine 50042765072 Weston Strange MD NATURAL MERCERIZER MACHINE OPERATOR MULTIVITAMIN ORAL Take 1 tablet by mouth every night NATURAL MERCERIZER MACHINE OPERATOR MULTIVITAMIN ORAL Weston Strange MD METFORMIN HCL 1000 MG TABS Take 1 tablet by mouth twice a day 06/20 metformin 86064776901 Weston Strange MD medication order composer Wheelchair Replacement part: 2 front wheel Casters 2 inch diameter medication order composer Weston Strange MD Calcium carbonate Take 500 mg by mouth twice a day OYSTERSHELL CALCIUM Weston Strange MD KP NIACIN 500 MG TABS Take 1 tablet by mouth once a day 07/11 niacin 00313973837 Weston Strange MD medication order composer Diabetic shoes 07/21 medication order composer Weston Strange MD HYDROCHLOROTHIAZIDE 25 MG TABS Take 1 tablet by mouth once a day 06/20 hydrochlorothiaz franco 19116475162 Weston Strange MD GABAPENTIN 300 MG CAPS Take 2 capsule three times a day 06/20 gabapentin 14962577193 Weston Strange MD HYDROXYCHLOROQUINE SULFATE 200 MG TABS Take 1 tablet by mouth once a day 07/31 hydroxychloroqui ne 67830408493 Weston Strange MD FENOFIBRATE 145 MG TABS Take 1 tablet by mouth once a day 06/20 fenofibrate nanocrystallized 11846233685 Weston Strange MD FAMOTIDINE 20 MG TABS Take 1 tablet by mouth every night 06/20 famotidine 48934948522 Weston Strange MD CLOPIDOGREL BISULFATE 75 MG TABS Take 1 tablet by mouth once a day 10/31 clopidogrel 70308533662 Weston Strange MD WARFARIN SODIUM 5 MG TABS Take by mouth 7.5 mg (7.5 mg x 1) every Sun; 5 mg (5 mg x 1) all other days in the evening OR as directed 07/18 warfarin 89347710127 Weston Strange MD VITAMIN B-12 1000 MCG TABS Take 1000 mcg by mouth once a day cyanocobalamin (vitamin b-12) 40793833401 Weston Strange MD glucose 4 g chewable tablet Take 4 by mouth as needed glucose 4 g chewable tablet Weston Strange MD ATORVASTATIN CALCIUM 40 MG TABS Take 1 tablet by mouth every night 06/20 atorvastatin 58699692815 Weston Strange MD wheelchair Wheelchair: Manual Wheelchair: Patient continues to need to use daily his manual wheelchair and the wheelchair will continue to need repairs for the next 12 months 06/15 wheelchair QIEUSER QIEUSER WARFARIN SODIUM 7.5 MG TABS Take by mouth 7.5 mg (7.5 mg x 1) every Sun; 5 mg (5 mg x 1) all other days in the evening OR as directed 12/21 warfarin 71475313190 QIEUSER QIEUSER WARFARIN SODIUM 5 MG TABS Take by mouth 7.5 mg (7.5 mg x 1) every Sun; 5 mg (5 mg x 1) all other days in the evening OR as directed 07/18 warfarin 63921556436 QIEUSER QIEUSER OMEPRAZOLE 20 MG CPDR Take 20 mg by mouth before breakfast. 12/21 omeprazole 02150252197 QIEUSER QIEUSER Qndyh-8-NBQ-EPA-Fish Oil 1,000 mg Take 1 capsule by mouth 2 times daily. 06/13 120 mg-180 mg QIEUSER QIEUSER KP NIACIN 500 MG TABS Take 1 tablet by mouth once daily. 07/11 niacin 33087419507 QIEUSER QIEUSER NATURAL MERCERIZER MACHINE OPERATOR MULTIVITAMIN ORAL Take 1 tablet by mouth once daily in the evening. 08/09 NATURAL MERCERIZER MACHINE OPERATOR MULTIVITAMIN ORAL QIEUSER QIEUSER METFORMIN HCL 1000 MG TABS Take 1 Tablet (1,000 mg) by mouth two times daily with meals. 06/20 metformin 99503660469 QIEUSER QIEUSER medication order composer Wheelchair Replacement part: 2 front wheel Casters 2 inch diameter 08/09 medication order composer QIEUSER QIEUSER medication order composer Diabetic shoes 07/21 medication order composer QIEUSER QIEUSER HYDROXYCHLOROQUINE SULFATE 200 MG TABS Take 1 Tablet (200 mg) by mouth once daily. 07/31 hydroxychloroqui ne 61527631519 QIEUSER QIEUSER HYDROCHLOROTHIAZIDE 25 MG TABS Take 1 Tablet (25 mg) by mouth once daily. 06/20 hydrochlorothiaz franco 51740537007 QIEUSER QIEUSER glucose 4 g chewable tablet Take 4 g by mouth each time if needed for Blood Gluc < 60 g/dL. 08/09 glucose 4 g chewable tablet QIEUSER QIEUSER GABAPENTIN 300 MG CAPS Take 2 capsules in the morning, 2 capsule in the afternoon, and 2 capsules at bedtime 06/20 gabapentin 34910450182 QIEUSER QIEUSER FENOFIBRATE 145 MG TABS Take 1 Tablet (145 mg) by mouth once daily with a meal. 06/20 fenofibrate nanocrystallized 49540547944 QIEUSER QIEUSER FAMOTIDINE 20 MG TABS Take 1 Tablet (20 mg) by mouth at bedtime. 06/20 famotidine 82143187420 QIEUSER QIEUSER VITAMIN B-12 1000 MCG TABS Take 1,000 mcg by mouth once daily. 08/09 cyanocobalamin (vitamin b-12) 77045441533 QIEUSER QIEUSER CLOPIDOGREL BISULFATE 75 MG TABS TAKE ONE TABLET BY MOUTH EVERY DAY 10/31 clopidogrel 43360211396 QIEUSER QIEUSER VITAMIN D3 25 MCG (1000 UT) CAPS Take 1 capsule by mouth once daily. 11/06 cholecalciferol (vitamin d3) 90007137156 QIEUSER QIEUSER Calcium carbonate Take 500 mg by mouth 2 times daily with meals. 08/09 OYSTERSHELL CALCIUM QIEUSER QIEUSER AZATHIOPRINE 50 MG TABS Take 1.5 Tablets (75 mg) by mouth every morning. 07/31 azathioprine 02856912019 QIEUSER QIEUSER ATORVASTATIN CALCIUM 40 MG TABS Take 1 Tablet (40 mg) by mouth at bedtime. 06/20 atorvastatin 87783526988 QIEUSER QIEUSER ACETAMINOPHEN 500 MG TABS Take 500 mg by mouth 4 times daily if needed. Max acetaminophen dose: 4000mg in 24 hrs. 08/09 acetaminophen 68268301000 QIEUSER QIEUSER Medications Administered No information available. Allergies, Adverse Reactions, Alerts Allergy Name Reaction Description Start Date Severity Statu s Provider ASPIRIN avoided due to being on warfarin Moderate Active Kari Faye PA-C LISINOPRIL Angioedema Moderate Active Bill collier Results Date Name Value Unit Range Flag Description Internal Other: Observation data from Authorization.pdf HIECONSENT Y Consent To Release information to the Health Information Exchange (HIE) Office Visit: Office Visit f ax MEDS REVIEW Done Documenta tion of current medications (procedure) Plan of Care Type Date Detail Appointment 11:20 [place], [address] [place] [address], [address], [place], [address], Pending order Follow up Pending order Follow up Pending order Patient Instruct ions Pending order Follow up LUZ Pending order Follow up Pending order Follow up Pending Order exclud ed from report: Pending order Other Test Pending order Other Referral Pending order Other Test Pending order Other Referral Pending order EMG bilateral lo w ext Pending order Obtain outside r ecords Pending Order exclud ed from report: Pending order Obtain outside r ecords Pending order Follow up in cli [facility] or telemedicine Pending order Other Radiology Pending order MRI-Lumbar W/O Pending order Other Radiology Pending Order exclud ed from report: Pending order MRI-Brain W/O Procedures Code Procedure Name Date Entry Date ORDERS Follow up LUZ ORDERS Patient Instructions ORDERS Follow up [facility]-[id number] Documentation of current medicatio ns [id number] Other Referral ORDERS Other Test ORDERS EMG bilateral low ext 12/29 CPT-15683 Nerve Conduction 5-6 studies CPT-15415 EMG with NCS (5+ muscles) - 2 limbs 03/04 ORDERS Obtain outside records 10/05 ORDERS Follow up in clinic or telemedicine 10/05 [id number] Other Radiology [id number] MRI-Lumbar W/O [id number] MRI-Brain W/O Vital Signs Date Name Value Unit Description Heart Rate 78 /min pulse rate Immunizations No information available. Advance Directives No information available.
--- OUTSIDE RECORDS SUMMARY | 2025-02-27 00:20 | XMS_ITS | Patient Health Record ---
Author Organization [facility] Address [address] [place] [address] [address] [place] [address] Care Team Providers Care Scooter Mechanic Name Role Phone Trang Escamilla Primary Care Provider Surya Jimenez Unavailable [phone] Alie SCALES, [facility] Unavailable Unavailable Allergies No Known Allergies Reason [...] W/U Status Risk Notes Problem Chronic pain (54917547) Other chronic pain (G89.29) Active confirmed Problem Lumbar radiculopathy (613240523) Radiculopath y, lumbar region (M54.16) Active confirmed Plan Of Treatment No Information Insurance Providers Payer Name Payer Address Payer Phone Subscriber Number Group Number Insured Name Patient Relationship to Insured Coverage Start Date Coverage End Date Medicare Part B [employer] [address] [facility] [place] [address] [id number] Christiano Johns Self - patient is the insured Medical (General) History Medical History History ICD Code Acid reflux Diabetes High cholesterol Hydrocephalus Surgical History Surgery Date(Month/Year) Left below the knee amputation Hydrocephalic shunt replacement 2015
--- OUTSIDE RECORDS SUMMARY | 2025-02-27 00:21 | XMS_ITS | Clinical Summary ---
Author Organization [facility] Address [address] [place] [address] Care Team Providers Care Postie Name Role Phone Henry Mckeon MD Unavailable [phone] Other-None Unavailable Unavailable Jose Flower MD Unavailable [phone] Emmanuel Foy MD Unavailable Unavailable Christiano Jerome OD Unavailable [phone] Dg Del Castillo MD Unavailable [phone] Truong Carpio MD Primary Care Provider + Allergies Active Allergy Reactions Criticality Noted Date Comments Lisinopril Angioedema Medium 04/28/2012 Medications Calcium carbonate (OYSTERSHELL CALCIUM) 500 mg tablet Take 500 mg by mouth 2 times daily with meals. 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 025 Active Svkmh-8-EDA-EPA-Fi sh Oil 1,000 (120-180) mg capIndications:Dys lipidemia [...] IN THE MORNING 180 Tablet 025 Active hydroxychloroquine (PLAQUENIL) 200 mg tabletIndications: [...] 25 1:39 PM CDT 025 2024 Active enoxaparin (LOVENOX) 80 mg/0.8 mL injectionIndicatio ns:Anti-phospholip id syndrome (HC),Anticoagulati on monitoring, INR range 2-3,Pulmonary embolism on left (HC),History of DVT (deep vein thrombosis),Acute deep vein thrombosis (DVT) of popliteal vein of right lower extremity (HC),Chronic atrial fibrillation (HC) INJECT 80 MG SUBCUTANEOUS EVERY 12 HOURS. 8 mL 1 025 Active enoxaparin 80 mg/0.8 mL injectionIndicatio ns:Anti-phospholip id syndrome (HC),Anticoagulati on monitoring, INR range 2-3,Pulmonary embolism on left (HC),History of DVT (deep vein thrombosis),Acute deep vein thrombosis (DVT) of popliteal vein of right lower extremity (HC),Chronic atrial fibrillation (HC) Inject 80 mg subcutaneous every 12 hours. 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 Issue of repeat prescription 11/14/2013 [...] Encounters Date Type Department Care Team Description 02/26/2025 Telephone [facility] [address] [place] [address] Truong Carpio MD Anticoagulation (Platelets) 02/26/2025 Telephone [facility] [address] [place] [address] Truong Carpoi MD Medication Management (LOVENOX Missed Dose ) 02/25/2025 3:00 PM CDT Orders Only [facility] [address] [place] [address] [place] Lab 02/25/2025 Travel 02/25/2025 Telephone [facility] [address] [place] [address] Truong Carpio MD Error-please disregard 02/25/2025 Refill [facility] [address] [place] [address] Truong Carpio MD Refill Request (Enoxaparin) 02/20/2025 Travel 02/20/2025 Telephone [facility] [address] [place] [address] Mj Collado MD Follow Up 02/20/2025 Telephone [facility] [address] [place] [address] Mj Collado MD Follow Up 02/19/2025 Orders Only [facility] Scanner 1 scan: (1-Ord) BHAVANI TORO RESULT, 02/19/2025 02/19/2025 Telephone [facility] [address] [facility] [place] [address] Truong Carpio MD Anticoagulation (Platelet) 02/19/2025 Anticoagulation (warfarin) [facility] [address] [facility] [place] [address] Truong Carpio MD Error-please disregard (opened in error) 02/14/2025 11:31 AM CDT Anesthesia Event [facility] [address] [place] [address] Roman Ignacio MD Santiago, Matthew Ryan, CONSTANCE 02/14/2025 10:06 AM CDT - 02/14/2025 12:00 PM CDT Surgery [facility] [address] [place] [address] Lilian Aguilar MD INTERSTIM STAGE ONE SACRAL NEUROMODULATION 02/14/2025 8:44 AM CDT - 02/14/2025 7:28 PM CDT Hospital Encounter [facility] [address] [place] [address] Lilian Aguilar MD Overactive bladder (Primary Dx) Discharge Disposition: [facility] Facility 02/14/2025 Travel 02/13/2025 2:15 PM CDT Office Visit [facility] [address] [facility] [place] [address] Tiana Deleon, Preoperative Exam (02/14/25-bladder/INTER STIM STAGE ONE SACRAL NEUROMODULATION) 02/12/2025 Travel 02/12/2025 Telephone [facility] [address] [place] [address] Truong Carpio MD 02/08/2025 Telephone [facility] [address] [place] [address] Truong Carpio MD Appointment Request (PROTIME INR) 01/31/2025 Telephone [facility] [address] [place] [address] Truong Carpio MD Anticoagulation (orders) 01/31/2025 Telephone [facility] [address] [place] [address] VoTruong malik MD Anticoagulation 01/31/2025 Telephone [facility] [address] [place] [address] Truong Carpio MD Medication Management 01/31/2025 Telephone [facility] [address] [place] [address] Truong Carpio MD Anticoagulation 01/31/2025 Telephone [facility] [address] [place] [address] VoTruong malik MD Anticoagulation (Abnormal bridging labs. ) 01/31/2025 Anticoagulation (warfarin) [facility] [address] [place] [address] Nurse, Maria Anticoag Anticoagulation 01/30/2025 3:00 PM CDT Orders Only [facility] [address] [place] [address] [place] <No scans attached> 01/30/2025 Travel 01/29/2025 Telephone [facility] [address] [place] [address] Truong Carpio MD 01/21/2025 Refill [facility] [address] [place] [address] Dg Del Castillo MD Refill Request (Hydroxychloroquine) 01/15/2025 Telephone [facility] [address] [place] [address] Truong Carpio MD 01/15/2025 Telephone [facility] [address] [place] [address] Truong Carpio MD 01/09/2025 Telephone [facility] [address] [place] [address] Truong Carpio MD Anticoagulation 01/08/2025 1:30 PM CDT Orders Only [facility] [address] [place] [address] Lab, [place] <No scans attached> 01/08/2025 Anticoagulation (warfarin) [facility] [address] [place] [address] Nurse, Maria Anticoag Anticoagulation (MARGO) 01/08/2025 Travel 12/31/2024 Telephone [facility] [address] [place] [address] Truong Carpio MD Anticoagulation 12/26/2024 Anticoagulation (warfarin) [facility] [address] [place] [address] Nurse, Maria Anticoag Anticoagulation (Lab ) 12/25/2024 12:45 PM CDT Orders Only [address] [address] Lab[place] Lab 12/25/2024 Travel 12/20/2024 Travel 12/18/2024 Anticoagulation (warfarin) [facility] [address] [place] [address] Nurse, Maria Anticoag Anticoagulation (Chart update) 12/18/2024 Telephone [facility] [address] [place] [address] Truong Carpio MD Anticoagulation (Procedure rescheduled to Sept) 12/17/[address] [address] Truong Carpio MD Anticoagulation (Procedure hold.) 12/17/2024 Anticoagulation (warfarin) [address] [address] Nurse, Ahg Anticoag Anticoagulation (Chart update ) 12/13/[address] [address] Truong Carpio MD Anticoagulation (abnormal labs) 12/13/[address] [address] Truong Carpio MD Anticoagulation (OPA - Lovenox) 12/12/2024 1:30 PM CDT Orders Only [address] [place] [address] Lab[place] Lab 12/12/2024 Anticoagulation (warfarin) [facility] [address] [place] [address] Nurse, Maria Anticoag Anticoagulation 12/12/2024 Travel 12/10/2024 Refill [facility] [address] [place] [address] Dg Del Castillo MD Refill Request (Azathioprine) 12/10/2024 Refill [facility] [address] [place] [address] Truong Carpio MD Refill Request (Clopidogrel) 12/10/[address] [facility] [address] [place] [address] Truong Carpio MD Refill Request (Atorvastatin) 12/06/2024 Anticoagulation (warfarin) [facility] [address] [place] [address] Nurse, sanjeev Anticoag Anticoagulation (Chart update) 12/06/2024 Telephone [facility] [address] [place] [address] Truong Carpio MD Anticoagulation (01/03/25 Procedure) 12/06/2024 Telephone [facility] [address] [place] [address] Truong Carpio MD Anticoagulation 12/05/2024 10:25 AM CDT Office Visit [facility] [address] [place] [address] Truong Carpio MD Preoperative Exam (12/20/24) 12/05/2024 Travel 11/30/2024 Travel from Last 3 Months Immunizations Immunization Administration Dates Next Due COVID-19 VACCINE SPIKEVAX (M ODERNA 50MCG/0.5ML) 12YO+ PFS 04/25/2024,09/28/2023,03/28/2023 COVID-19 vaccine (Moderna 100mcg/0.5mL) PFMDV 09/18/2021,04/02/2021,08/06/2020,2020 COVID-19 vaccine (Moderna 50mcg/0.5mL) 12YO+ BIVALENT [...] PM CDT Legal Sex Male 5:24 AM CEREAL CHEMIST Gender Identity Not on file Sexual Orientation [...] Upcoming Encounters Date Type Department Care Team (Latest Contact Info) Description 02/27/2025 10:40 AM CDT Telemedicine [facility] [address] [place] [address] Dg Del Castillo MD [address] [place] [address] 02/28/2025 10:30 AM CDT Hospital Encounter [facility] [address] [place] [address] Lilian Aguilar MD [address] [place] [phone] 02/28/2025 10:30 AM CDT - 02/28/2025 11:50 AM CDT Surgery [facility] [address] [place] [address] Lilian Aguilar MD [address] [place] [address] STAGE TWO INTERSTIM BATTERY, IMPLANTABLE PULSE GENERATOR PLACEMENT 03/04/2025 10:00 AM CDT Orders Only [facility] [address] [place] [address] [place] 03/28/2025 10:00 AM CDT Office Visit [facility] [address] [place] [address] Truong Carpio MD [address] [place] [address] 04/22/2025 9:45 AM CEREAL CHEMIST Ancillary Procedure [facility] [address] [place] [address] 04/22/2025 10:45 AM CEREAL CHEMIST Ancillary Procedure [facility] [address] [place] [address] 04/22/2025 11:30 AM CEREAL CHEMIST Office Visit [facility] [address] [place] [address] Mj Collado MD [address] [facility] [address] [place] [address] Scheduled Procedures Name Priority Associated Diagnoses Date/Ti [...] COVID-19 vaccine series (9 - Moderna risk season) 2025 04/25/2024, 09/28/2023, 03/28/2023, Additional history exists Influenza Vaccine (#1) 2025 , 04/05/2023, 02/22/2022, Additional history exists Fecal testing sDNA-FIT (Floyd guard) for age 45-75 06/25/2025 06/25/2022 Depression [...] history exists Medical Devices Implanted Type Area Paralegal Secretary Device Identifier Shelf Expiration Date Model / Serial / Lot Shunt System 15cm Stra [id number] Nmtneuroscie - [id number] Implanted:Qty: 1 on 12/28/2013 at [facility] Right: Cranium Integra [employer] Rita [id number] / / [id number] Graft Vasc 6x40mm 60cm Propaten - [id number] Implanted:Qty: 1 on 03/16/2024 by Mj Collado MD at [facility] Right: Leg W L Isabel 10/30/2026 [id number] / [id number] / Lead Kit 4.32mm Spacing 28cm Length Interstim - [id number] Implanted:Qty: 1 on 02/14/2025 by Lilian Aguilar MD at [facility] Medtr[employer] Pain Therapy 05/08/2026 [id number] / / [id number] Cable Perk Ext 4.32mm Interstim Lead Implanted:Qty: 1 on 02/14/2025 by Lilian Aguilar MD at [facility] 10/31/2025 [id number] / / [id number] Description:Cable Perk Ext 4 .32mm Interstim Lead Procedures Procedure Name Priority Date/Time Associated Diagnosis Comments PLATELET COUNT STAT 02/25/2025 2:57 PM CDT Anti-phospholipid syndrome (HC) Anticoagulation monitoring, INR range 2-3 history of Pulmonary embolism History of DVT (deep vein thrombosis) SCAN-LABORATORY REPORT 02/19/2025 12:00 AM CDT GLUCOSE METER Timed 02/14/2025 1:15 PM CDT XR C-ARM GREATER 1 HR Routine 02/14/2025 12:32 PM CDT ENDOTRACHEAL TUBE Routine 02/14/2025 12:10 PM CDT ENDOTRACHEAL TUBE Routine 02/14/2025 12:10 PM CDT IMPLANT SACRAL LEAD STAGE ONE Tier 2: within 30 days 02/14/2025 11:24 AM CDT Full incontinence of feces, Overactive bladder Case Notes Agus Flood from [employer] was notified via email and Phone. Have [...] SDNA-FIT EXTERNAL (COLOGUARD) Routine 06/25/2022 7:30 AM CEREAL CHEMIST Screening for colon cancer EXPOSURE (BBF) RAPID HIV Routine 07/03/2012 2:24 PM CEREAL CHEMIST Needle Stick Injury EXPOSURE (BBF) ANTI HCV Routine 07/03/2012 2:24 PM CEREAL CHEMIST Needle Stick Injury from Last 3 Months or Most Recently Relevant to Health Maintenance Results * (ABNORMAL) STAT - PLATELET COUNT [06332.2] - Standing Order (02/25/2025 2:57 PM CDT) PLATELET COUNT 306 140 - 440 thou/cu mm 02/25/2025 5:07 PM T [facility] MPV 11.5(H) 6.5 - 11.0 fL 02/25/2025 5:07 PM T [facility] Blood BLOOD SPECIMEN / Unknown [facility] / Unknown 02/25/2025 2:57 PM CDT 02/25/2025 2:57 PM CDT us Truong Carpio MD HEMATOLOGY Final Re sult Performing Organization Address City/[facility]/ZIP Co de Phone Number [facility] [address] [place] [address] * SCAN-LABORATORY REPORT (02/19/2025 12:00 AM CDT) us Scanner OTHER Final Result * (ABNORMAL) GLUCOSE METER (02/14/2025 1:15 PM CDT) Only the most recent of2 resultswithin the time period is included. [facility] Signature GLUCOSE METER 149(H) 65 - 100 mg/dL 02/14/2025 1:17 PM CDT [facility] Blood BLOOD SPECIMEN / Unknown 02/14/2025 1:15 PM CDT 02/14/2025 1:17 PM CDT us Lilian Aguilar MD CHEMISTRY Final Result Performing Organization Address City/[facility]/ZIP Co de Phone Number [facility] [address] [place] [address], [place] * XR C-ARM GREATER 1 HR (02/14/2025 12:32 PM CDT) Anatomical Region Laterality Modality Other Narrative 02/14/2025 11:55 AM CDT 43 seconds fluoroscopy time was provided. See operative/procedure report for further information. us Lilian Aguilar MD FLUOROSCOPY Final Result * [...] - 11.0 thou/cu mm 02/13/2025 6:48 PM [facility] RED BLOOD COUNT 3.80(L) 4.30 - 5.90 mil/cu mm 02/13/2025 6:48 PM [facility] HEMOGLOBIN 10.8(L) 13.5 - 17.5 g/dL 02/13/2025 6:48 PM [facility] HEMATOCRIT 33.4(L) 37.0 - 53.0 % 02/13/2025 6:48 PM [facility] MCV 88 80 - 100 fL 02/13/2025 6:48 PM [facility] MCH 28.4 26.0 - 34.0 pg 02/13/2025 6:48 PM [facility] MCHC 32.3 32.0 - 36.0 g/dL 02/13/2025 6:48 PM [facility] RDW 16.7(H) 11.5 - 15.5 % 02/13/2025 6:48 PM [facility] PLATELET COUNT 443(H) 140 - 440 thou/cu mm 02/13/2025 6:48 PM [facility] MPV 11.1(H) 6.5 - 11.0 fL 02/13/2025 6:48 PM CDT [facility] Blood BLOOD SPECIMEN / Unknown [facility] / Unknown 02/13/2025 3:30 PM CDT 02/13/2025 3:30 PM CDT [facility] - 02/13/2025 6:48 PM CDT Preop less than 24 hours. Tiana Huntert DO HEMATOLOGY Final Resul t Performing Organization Address City/[facility]/ZIP Co de Phone Number [facility] [address] [place] [address] * (ABNORMAL) RED CELL MORPHOLOGY (02/13/2025 3:30 PM CDT) ELLIPTOCYTES Few 02/13/2025 6:48 PM CDT [facility] RBC COMMENT Present(A ) RBC morphology appears normal, RBC morphology within normal limits for newborns. 02/13/2025 6:48 PM CDT [facility] Blood BLOOD SPECIMEN / Unknown [facility] / Unknown 02/13/2025 3:30 PM CDT 02/13/2025 3:30 PM CDT [facility] - 02/13/2025 6:48 PM CDT Preop less than 24 hours. us Tiana Deleon DO HEMATOLOGY Final Resul t Performing Organization Address City/[facility]/ZIP Co de Phone Number [facility] [address] [place] [address] * (ABNORMAL) PLATELET ESTIMATE (02/13/2025 3:30 PM CDT) PLATELET ESTIMATE Increased (A) Adequate, No estimate 02/13/2025 6:48 PM CDT [facility] Blood BLOOD SPECIMEN / Unknown [facility] / Unknown 02/13/2025 3:30 PM CDT 02/13/2025 3:30 PM CDT [facility] - 02/13/2025 6:48 PM CDT Preop less than 24 hours. us Tiana Schwartz Detert DO HEMATOLOGY Final Resul t Performing Organization Address City/[facility]/ZIP Co de Phone Number [facility] [address] [place] [address] * (ABNORMAL) MANUAL DIFFERENTIAL (02/13/2025 3:30 PM CDT) % NEUTROPHILS 67.0 % 02/13/2025 6:48 PM CDT [facility] % LYMPHOCYTES 9.0 % 02/13/2025 6:48 PM CDT [facility] % MONOCYTES 18.0 % 02/13/2025 6:48 PM T [facility] % EOSINOPHILS 4.0 % 02/13/2025 6:48 PM CDT [facility] % BASOPHILS 2.0 % 02/13/2025 6:48 PM T [facility] NEUTROPHILS ABSOLUTE 3.4 1.7 - 7.0 thou/cu mm 02/13/2025 6:48 PM CDT [facility] LYMPHOCYTES ABSOLUTE 0.5(L) 0.9 - 2.9 thou/cu mm 02/13/2025 6:48 PM T [facility] MONOCYTES ABSOLUTE 0.9(H) <0.9 thou/cu mm 02/13/2025 6:48 PM T [facility] EOSINOPHILS ABSOLUTE 0.2 <0.5 thou/cu mm 02/13/2025 6:48 PM T [facility] BASOPHILS ABSOLUTE 0.1 <0.3 thou/cu mm 02/13/2025 6:48 PM T [facility] Blood BLOOD SPECIMEN / Unknown [facility] / Unknown 02/13/2025 3:30 PM CDT 02/13/2025 3:30 PM CDT [facility] - 02/13/2025 6:48 PM CDT Preop less than 24 hours. us Tiana Schwartz Detert DO HEMATOLOGY Final Resul t [facility] [address] [place] [address] * (ABNORMAL) BASIC METABOLIC PANEL (02/13/2025 3:30 PM CDT) SODIUM 139 136 - 145 mmol/L 02/13/2025 7:20 PM [facility] POTASSIUM 4.2 3.5 - 5.1 mmol/L 02/13/2025 7:20 PM [facility] CHLORIDE 102 98 - 107 mmol/L 02/13/2025 7:20 PM [facility] CO2,TOTAL 25 22 - 29 mmol/L 02/13/2025 7:20 PM [facility] ANION GAP 12 5 - 18 02/13/2025 7:20 PM [facility] GLUCOSE 117(H) 70 - 99 mg/dL 02/13/2025 7:20 PM [facility] CALCIUM 9.8 8.8 - 10.4 mg/dL 02/13/2025 7:20 PM [facility] Comment: Reference ranges for this test were updated on 04/17/2024 to reflect our healthy population more accurately. Reference range changes are not retroactively applied to results, but previous results using the same methodology can be interpreted in the context of the new reference range. BUN 13 6 - 20 mg/dL 02/13/2025 7:20 PM [facility] CREATININE 0.67(L) 0.70 - 1.20 mg/dL 02/13/2025 7:20 PM [facility] BUN/CREAT RATIO 19 10 - 20 7:20 PM [facility] eGFR >90 >90 mL/min/1. 73m2 02/13/2025 7:20 PM [facility] Comment:As of 2021, eG FR is calculated by the CKD-EPI creatinine equation without race adjustment. eGFR can be influenced by muscle mass, exercise, and diet. The reported eGFR is an estimation only and is only applicable if the renal function is stable. Blood BLOOD SPECIMEN / Unknown [facility] / Unknown 02/13/2025 3:30 PM CDT 02/13/2025 3:30 PM CDT us Tiana Deleon DO CHEMISTRY Final Resul t [facility] [address] [place] [address] * (ABNORMAL) CBC W PLT NO DIFF [83883.1] (01/30/2025 2:20 PM CDT) Only the most [...] 01/30/2025 2:25 PM CDT Truong Carpio MD HEMATOLOGY Final Re sult Performing Organization Address [facility] de Phone Number [facility] [address] [phone], * CREATININE [40845.2] (01/30/2025 2:20 PM CDT) Only the most [...] CHEMISTRY Final Re sult Performing Organization Address [facility] de Phone Number [employer] [address] [address], * (ABNORMAL) PROTIME-INR [81872.0] - Standing Order (01/30/2025 2:20 PM CDT) Only the most recent of4 resultswithin the time period is included. INR 3.5(H) <1.3 01/30/2025 10:38 PM CDT [facility] PROTIME 41.0(H) 10.6 - 12.4 sec 01/30/2025 10:38 PM CDT [facility] Blood BLOOD SPECIMEN / Unknown [facility] / Unknown 01/30/2025 2:20 PM CDT 01/30/2025 2:25 PM CDT Narrative [facility] - 01/30/2025 10:38 PM CDT Therapeutic [...] Truong Carpio MD HEMATOLOGY Final Re sult [facility] [address] [place] [address], * LIPID PANEL W REFLEX MEASURED LDL (09/27/2024 10:34 AM CDT) CHOLESTEROL, TOTAL 148 <200 mg/dL [facility] HDL CHOLESTEROL 42 > OR = 40 mg/dL [facility] TRIGLYCERIDES 127 <150 mg/dL [facility] LDL-CHOLESTEROL 84 mg/dL (calc) [facility] Comment: Reference range: <100 Desirable range <100 mg/dL for primary prevention; <70 mg/dL for patients with CHD or diabetic patients with > or = 2 CHD risk factors. LDL-C is now calculated using the William-Schroeder calculation, which is a validated novel method providing better accuracy than the Friedewald equation in the estimation of LDL-C. William SS et al. ABBIE. 2013;310(19): 1698-1697 (http://education.Prompt.ly.Intcomex/faq/DIE932) CHOL/HDLC RATIO 3.5 <5.0 (calc) [facility] [place] NON HDL CHOLESTEROL 106 <130 mg/dL (calc) [facility] Comment: For patients with diabetes plus 1 major ASCVD risk factor, treating to a non-HDL-C goal of <100 mg/dL (LDL-C of <70 mg/dL) is considered a therapeutic option. Blood BLOOD SPECIMEN / Unknown 09/27/2024 10:34 AM CDT 09/27/2024 10:36 AM CDT Narrative [facility] - 09/28/2024 5:24 AM CDT FASTING:NO FASTING: NO Truong Carpio MD CHEMISTRY Final Re sult [facility] [address] [place] [address], [facility] [address] [place] [address] * SDNA-FIT EXTERNAL (COLOGUARD) (06/25/2022 7:30 AM CEREAL CHEMIST) NONINV COLON CA DNA+OCC BLD SCRN STL-IMP Negative Negative 06/30/2022 7:11 PM CEREAL CHEMIST [employer] (CLIA #:[id number]) Comment: NEGATIVE TEST RESULT. A negative Cologuard [...] Geller et al, N Engl J Med 2014;370(14):2821-3031) The normal value (reference range) for this assay is negative. COLOGUARD RE-SCREENING RECOMMENDATION: Periodic colorectal cancer screening is an important part of preventive healthcare for asymptomatic individuals at average risk for colorectal cancer. Following a negative Cologuard result, the [place] Cancer Society and U.S. Multi-Society Task Force screening guidelines recommend a Cologuard re-screening interval of 3 years. References: [place] [employer] Guideline for Colorectal Cancer Screening: https://www.cancer.org/cancer/vjicl-fhiptr-dttalk/zygxeekfv-ntscfvhih-hfodpwe/ac s-rec ommendations.html.; Beltran BRODERICK, Jessica NIELSON, Nesha CortesK, Colorectal Cancer Screening: Recommendations for Physicians and Patients from the U.S. Multi-Society Task Force on Colorectal Cancer Screening , Am J Gastroenterology 2017; 112:0140-9619. TEST DESCRIPTION: Composite algorithmic analysis of stool [...] (Rosario Basurto al, N Engl J Med 2014;370(14):1925-3405.) Cologuard may produce a false negative or false positive result (no colorectal cancer or precancerous polyp present at colonoscopy follow up). A negative Cologuard test result does not guarantee the absence of CRC or advanced adenoma (pre-cancer). The current Cologuard screening interval is every 3 years. ([place] Society and U.S. Multi-Society Task Force). Cologuard performance data in a 10,000 patient pivotal study using colonoscopy as the reference method can be accessed at the following location: www.Owtware.Intcomex/results. Additional description of the Cologuard test process, warnings and precautions can be found at [email or web address]. Stool specimen (specimen) (Rectum) 06/25/2022 7:30 AM CEREAL CHEMIST 06/26/2022 2:04 PM CEREAL CHEMIST Trang Friedmangersonalise DO URINE Final Resul t [employer] [place] (CLIA #:[id number]) [address] [place] [address], [place] [phone] * PATIENT SOURCE RAPID HIV (07/03/2012 2:24 PM CEREAL CHEMIST) SOURCE RAPID HIV SCREEN Non-react alex (Nonreact alex) [facility] Blood specimen (specimen) BLOOD SPECIMEN / Unknown 07/03/2012 2:24 PM CEREAL CHEMIST 07/03/2012 2:19 PM CEREAL CHEMIST Trang Friedmangersonalise DO SEND OUTS Final Resul t Performing Organization Address City/[facility]/ZIP Co de Phone Number [facility] INTERNAL [place]IP [address] [facility] [address] [place] [address] * PATIENT SOURCE ANTI HCV (07/03/2012 2:24 PM CEREAL CHEMIST) SOURCE ANTI HCV Non-react alex [facility] Blood specimen (specimen) BLOOD SPECIMEN / Unknown 07/03/2012 2:24 PM CEREAL CHEMIST 07/03/2012 2:19 PM CEREAL CHEMIST Trang Friedmangersonalise DO SEND OUTS Final Resul t Performing Organization Address City/[facility] Co de Phone Number [facility] INTERNAL ZIP [address] [place] [phone] from Last 3 Months or Most Recently Relevant to Health Maintenance Additional Health Concerns Infection Onset Date Last Indicated MDRO Clearance Comment:Hx MDRO 201203/18/2024 03/18/2024 Insurance MEDICARE PART A HB ONLY [facility] [id number] [employer] Advance Directives Documents on File Type Date Recorded Patient Mica Inspector Expl anation POLST 10/10/2023 Healthcare Directive 11/22/2017 [...] 9:08 AM 08/09/2018 2:35 PM Care Teams Postie Relationship Specialty Start Date End Date VotelTruong MD [address] [place] [address] PCP - General Family Practice 10/25/23 Henry Mckeon MD Consulting Physician Radiology - Diagnostic 05/16/13 Other-None . 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 Consulting Physician Surgery - General 07/25/13 Emmanuel Foy MD . Hematology and Oncology 10/11/13 [place] [address] [place] [address] Ophthalmology Costumed Character 10/07/16 Dg Del Castillo MD [address] [place] [address] Rheumatology 05/31/23
== END 2025-02-26 10:19 | disposition home or self-care (01) ==
LOC: NPINS 10:18
PROVIDERS: PCP Family Medicine; Visit Provider Family Medicine
DX: I48.20 Chronic atrial fibrillation, unspecified (principal)
CPT/HCPCS: 85049

== ENCOUNTER 2025-03-05 13:14 | Outpatient (REF) | payer MEDICARE, SELFPAY ==
[2025-03-05 14:34] LABS: INR 1.04 (0.91-1.10); Prothrombin Time 14.4 Seconds
== END 2025-03-05 13:15 | disposition home or self-care (01) ==
LOC: NPINS 13:14
PROVIDERS: PCP Family Medicine; Visit Provider Family Medicine
DX: I48.20 Chronic atrial fibrillation, unspecified (principal)
CPT/HCPCS: 85049; 85610

== ENCOUNTER 2025-03-12 10:13 | Outpatient (REF) | payer MEDICARE, SELFPAY ==
--- OUTSIDE RECORDS SUMMARY | 2011-07-29 19:00 | XMS_ITS | Continuity of Care Document ---
Author Organization [facility] Address [address] [address] [place] [address] Phone Care Team Providers Care Turner In Name Role Phone Ekta BUENO, Monique Unavailable Unavailable Medications Medication Instructions Dosage Effective Dates (start - stop) Status Comments ibuprofen 400 mg Tab take 1 tablet (400MG) by oral route every day as needed 400 MG - Active acetaminophen 500 mg Cap take 1 Capsule (500MG) by oral route 4 times every day as needed 500 MG - Active oxycodone-acetaminophen 5 mg-325 mg Tab take 1 - 2 tablet by ORAL route every 6 hours as needed 1-2 tablet - Active tramadol 50 mg Tab take 1 tablet (50MG) by oral route 2 times every day as needed 50 MG - Active Butrans 10 mcg/hour Transderm Patch apply 1 patch (10MCG/H) by transdermal route every 7 days 10 MCG/H - Active baclofen 10 mg Tab take 1 tablet (10MG) by oral route 2 times every day 10 MG - Active MiralaxBisacodylMagCit Colon Prep Use as directed - Active Procedures Procedure Date Subsqt Hosp-da E&m Minr Compl 2 Init Hosp-da E&m Mod Severity 2 Small Intestinal Imaging Colonoscopy Flex; W/bx 1/mx Level Iv-surg Path Gross/micro 12 Sigmoidoscopy Flex; Dx (sep Pr 12 Ugi Endo; Dx W/wo Collec Specm 12 Init Hosp-da E&m Mod Severity 2 Subsqt Hosp-da E&m Minr Compl 2 Subsqt Hosp-da E&m Stable 15 M 12 Advance Directives Directive Yes / No Effective Date File Name No Information Encounters Encounter Description Practice Location Reason(s) For Visit Diagnoses Date Provider Providers Copied on Encounter Subsqt Hosp-da E&m Minr Compl [facility], [address] [address], [place], [id number], [place] tel:[phone] [facility] No Information 2 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 [address] [facility] [address] [place], [place], [id number], [place]. tel:[phone] Referring Provider: Pj Bills MD, [address], [place], [address]. tel:[phone] Init Hosp-da E&m Mod Severity [facility], [address] [address], [place], [id number], [place] tel:[phone] [facility] No Information 2 No Information Referring Provider: Pj Bills MD, [address], [place], [address]. tel:[phone] [facility], [address] [address], [place], [id number], [place] tel:[phone] [facility] Iron Deficiency Anemia 2 No Information Referring Provider: Pj Bills MD, [address], [place], [address]. tel:[phone] [facility], [address] [address], [place], [id number], [place] tel:[phone] [place] [facility] Iron Deficiency Anemia 2 Gab Patricia [address] [facility], [facility] [address], [place], [place], [id number], [place]. tel:[phone] Referring Provider: Pj Bills MD, [address], [place], [address]. tel:[phone] [facility], [address] [address], [place], [id number], [place] tel:[phone] [facility] Anal/rectal UlcerProctitisAn al/rectal UlcerIron Deficiency AnemiaProctitis Feb-0 2 Gab Patricia [address], [id number], [place]. tel:[phone] Referring Provider: Pj Bills MD, [address], [place], [address]. tel:[phone] [facility] [place], [address] [address], [place], [id number], [place] tel:[phone] [facility] No Information Consuelo Hernández [address] [facility] [address] [place], [place], [id number], [place]. tel:[phone] Referring Provider: Pj Bills MD, [address], [place], [address]. tel:[phone] [facility] [place], [address] [address], [place], [id number], [place] tel:[phone] [facility] No Information No Information Referring Provider: Referral Self, USE FOR SELF REFERRALS. [facility] [place], [address] [address], [place], [id number], [place] tel:[phone] [facility] No Information 2 No Information Referring Provider: Pj Bills MD, [address], [place], [address]. tel:[phone] Init Hosp- E&m Mod Severity [facility] [place], [address] [address], [place], [id number], [place] tel:[phone] [facility] No Information 2 No Information Referring Provider: Pj Bills MD, [address], [place], [address]. tel:[phone] Family History Family Member Type Diagnosis Age At Onset No Information Payers Payer name Insurance type Covered constitution party ID Trey luther(s) [facility] [id number] Social History Type Description Quantity Date Captured Comments Sex Male Smoking Status No Information Chief Complaint And Reason For Visit No Information Reason For Referral Reason For Referral No Information History Of Present Illness Encounter Date Complaint History Of Prese nt Illness No Information Functional Status Date Functional Assessmen t No Information Instructions Date Instruction Additional Infor mation No Information Assessments Type Assessment Date No Information Patient Care Teams Name Effective Dates (start - stop) Status Members No Information
[2025-03-12 10:58] LABS: INR 1.32 (0.91-1.10); Prothrombin Time 17.3 Seconds
--- OUTSIDE RECORDS SUMMARY | 2025-03-13 00:22 | XMS_ITS | Clinical Summary ---
Author Organization [facility] Address [address] [place] [address] , [address] [place] [address] Phone Care Team Providers Care Inhalation Therapy Aides Teacher Name Role Phone Mesha Treadwell Conditions or Problems Problem Name Problem Code Onset Date Status Entry Date Provider Comment Standard Description Annotate Lumbosacral radiculopath y 4030579 (SNOMED CT) 08/09 Active 08/09 Weston Strange MD Lumbosacral radiculopathy PE 31749234 (SNOMED CT) 08/09 Active 08/09 Weston Strange MD Pulmonary embolism Antiphosphol ipid antibody syndrome 41972478 (SNOMED CT) 08/09 Active 08/09 Weston Strange MD Antiphospholipid syndrome SLE 38263750 (SNOMED CT) 08/09 Active 08/09 Weston Strange MD Systemic lupus erythematosus Diabetes mellitus, type II with peripheral neuropathy 659123356164 7 (SNOMED CT) 08/09 Active 08/09 Westno Strange MD Peripheral neuropathy due to type 2 diabetes mellitus Hydrocephalu s 281770026 (SNOMED CT) 08/09 Active 08/09 Weston Strange MD Hydrocephalus Medications Medication Instructions Start Date Stop Date Generic Name NDC Provider GABAPENTIN 300 MG CAPS Take 2 capsule three times a day ; may take extra 300 mg at night if pain keeps you up 10/04 gabapentin [id number] Kari Faye PA-C GABAPENTIN 300 MG CAPS Take 2 capsule by mouth twice a day, and take 3 capsule by mouth every night at bedtime 07/17 gabapentin 81286642164 Kari Faye PA-C GABAPENTIN 300 MG CAPS Take 2 capsule three times a day 06/20 gabapentin 90378085653 Weston Strange MD GABAPENTIN 300 MG CAPS Take 2 capsule three times a day ; may take extra 300 mg at night if pain keeps you up 10/04 gabapentin 92466068830 Weston Strange MD Ffizi-1-ZGL-EPA-Fish Oil 1,000 mg Take 1 capsule by mouth twice a day 06/13 120 mg-180 mg Weston Strange MD WARFARIN SODIUM 7.5 MG TABS Take by mouth 7.5 mg (7.5 mg x 1) every Sun; 5 mg (5 mg x 1) all other days in the evening OR as directed warfarin 21304724374 Weston Strange MD OMEPRAZOLE 20 MG CPDR Take 20 mg by mouth every morning omeprazole 34601284365 Weston Strange MD ACETAMINOPHEN 500 MG TABS Take 500 mg by mouth four times a day as needed acetaminophen 82607257092 Weston Strange MD wheelchair Wheelchair: Manual Wheelchair: Patient continues to need to use daily his manual wheelchair and the wheelchair will continue to need repairs for the next 12 months 06/15 wheelchair Weston Strange MD VITAMIN D3 25 MCG (1000 UT) CAPS Take 1 capsule by mouth once a day 11/06 cholecalciferol (vitamin d3) 86442433093 Weston Strange MD AZATHIOPRINE 50 MG TABS Take 1.5 tablet by mouth every morning 07/31 azathioprine 64124875042 Weston Strange MD NATURAL DYNAMITE PACKING MACHINE OPERATOR MULTIVITAMIN ORAL Take 1 tablet by mouth every night NATURAL DYNAMITE PACKING MACHINE OPERATOR MULTIVITAMIN ORAL Weston Strange MD METFORMIN HCL 1000 MG TABS Take 1 tablet by mouth twice a day 06/20 metformin 60832206351 Weston Strange MD medication order composer Wheelchair Replacement part: 2 front wheel Casters 2 inch diameter medication order composer Weston Strange MD Calcium carbonate Take 500 mg by mouth twice a day OYSTERSHELL CALCIUM Weston Strange MD KP NIACIN 500 MG TABS Take 1 tablet by mouth once a day 07/11 niacin 06619694830 Weston Strange MD medication order composer Diabetic shoes 07/21 medication order composer Weston Strange MD HYDROCHLOROTHIAZIDE 25 MG TABS Take 1 tablet by mouth once a day 06/20 hydrochlorothiaz franco 70702769933 Weston Strange MD GABAPENTIN 300 MG CAPS Take 2 capsule three times a day 06/20 gabapentin 49049432778 Weston Strange MD HYDROXYCHLOROQUINE SULFATE 200 MG TABS Take 1 tablet by mouth once a day 07/31 hydroxychloroqui ne 65732261568 Weston Strange MD FENOFIBRATE 145 MG TABS Take 1 tablet by mouth once a day 06/20 fenofibrate nanocrystallized 52698352985 Weston Strange MD FAMOTIDINE 20 MG TABS Take 1 tablet by mouth every night 06/20 famotidine 53002134827 Weston Strange MD CLOPIDOGREL BISULFATE 75 MG TABS Take 1 tablet by mouth once a day 10/31 clopidogrel 94653387708 Weston Strange MD WARFARIN SODIUM 5 MG TABS Take by mouth 7.5 mg (7.5 mg x 1) every Sun; 5 mg (5 mg x 1) all other days in the evening OR as directed 07/18 warfarin 19870409346 Weston Strange MD VITAMIN B-12 1000 MCG TABS Take 1000 mcg by mouth once a day cyanocobalamin (vitamin b-12) 09158378791 Weston Strange MD glucose 4 g chewable tablet Take 4 by mouth as needed glucose 4 g chewable tablet Weston Strange MD ATORVASTATIN CALCIUM 40 MG TABS Take 1 tablet by mouth every night 06/20 atorvastatin 87631747794 Weston Strange MD wheelchair Wheelchair: Manual Wheelchair: [...] the evening OR as directed 12/21 warfarin 37234535422 QIEUSER QIEUSER WARFARIN SODIUM 5 MG TABS Take by mouth 7.5 mg (7.5 mg x 1) every Sun; 5 mg (5 mg x 1) all other days in the evening OR as directed 07/18 warfarin 76925126729 QIEUSER QIEUSER OMEPRAZOLE 20 MG CPDR Take 20 mg by mouth before breakfast. 12/21 omeprazole 18761628948 QIEUSER QIEUSER Wfidv-8-LFC-EPA-Fish Oil 1,000 mg Take 1 capsule by mouth 2 times daily. 06/13 120 mg-180 mg QIEUSER QIEUSER KP NIACIN 500 MG TABS Take 1 tablet by mouth once daily. 07/11 niacin 12108679486 QIEUSER QIEUSER NATURAL DYNAMITE PACKING MACHINE OPERATOR MULTIVITAMIN ORAL Take 1 tablet by mouth once daily in the evening. 08/09 NATURAL DYNAMITE PACKING MACHINE OPERATOR MULTIVITAMIN ORAL QIEUSER QIEUSER METFORMIN HCL 1000 MG TABS Take 1 Tablet (1,000 mg) by mouth two times daily with meals. 06/20 metformin 05610273255 QIEUSER QIEUSER medication order composer Wheelchair Replacement part: 2 front wheel Casters 2 inch diameter 08/09 medication order composer QIEUSER QIEUSER medication order composer Diabetic shoes 07/21 medication order composer QIEUSER QIEUSER HYDROXYCHLOROQUINE SULFATE 200 MG TABS Take 1 Tablet (200 mg) by mouth once daily. 07/31 hydroxychloroqui ne 25775437463 QIEUSER QIEUSER HYDROCHLOROTHIAZIDE 25 MG TABS Take 1 Tablet (25 mg) by mouth once daily. 06/20 hydrochlorothiaz franco 40086473321 QIEUSER QIEUSER glucose 4 g chewable tablet Take 4 g by mouth each time if needed for Blood Gluc < 60 g/dL. 08/09 glucose 4 g chewable tablet QIEUSER QIEUSER GABAPENTIN 300 MG CAPS Take 2 capsules in the morning, 2 capsule in the afternoon, and 2 capsules at bedtime 06/20 gabapentin 75963093799 QIEUSER QIEUSER FENOFIBRATE 145 MG TABS Take 1 Tablet (145 mg) by mouth once daily with a meal. 06/20 fenofibrate nanocrystallized 29676790254 QIEUSER QIEUSER FAMOTIDINE 20 MG TABS Take 1 Tablet (20 mg) by mouth at bedtime. 06/20 famotidine 16555533324 QIEUSER QIEUSER VITAMIN B-12 1000 MCG TABS Take 1,000 mcg by mouth once daily. 08/09 cyanocobalamin (vitamin b-12) 76643894597 QIEUSER QIEUSER CLOPIDOGREL BISULFATE 75 MG TABS TAKE ONE TABLET BY MOUTH EVERY DAY 10/31 clopidogrel 12870018104 QIEUSER QIEUSER VITAMIN D3 25 MCG (1000 UT) CAPS Take 1 capsule by mouth once daily. 11/06 cholecalciferol (vitamin d3) 70269647109 QIEUSER QIEUSER Calcium carbonate Take 500 mg by mouth 2 times daily with meals. 08/09 OYSTERSHELL CALCIUM QIEUSER QIEUSER AZATHIOPRINE 50 MG TABS Take 1.5 Tablets (75 mg) by mouth every morning. 07/31 azathioprine 11227663558 QIEUSER QIEUSER ATORVASTATIN CALCIUM 40 MG TABS Take 1 Tablet (40 mg) by mouth at bedtime. 06/20 atorvastatin 43994424272 QIEUSER QIEUSER ACETAMINOPHEN 500 MG TABS Take 500 mg by mouth 4 times daily if needed. Max acetaminophen dose: 4000mg in 24 hrs. 08/09 acetaminophen 14682186009 QIEUSER QIEUSER Medications Administered No information available. [...] Detail Appointment 11:20 [place], [address] [place] [address], [address], [place], [address], Pending order Follow up Pending order Follow [...] LUZ ORDERS Patient Instructions ORDERS Follow up [facility]-[id number] Documentation of current medicatio ns [id number] Other Referral ORDERS Other Test ORDERS EMG bilateral low ext 12/29 CPT-94990 Nerve Conduction 5-6 studies CPT-82004 EMG with NCS (5+ muscles) - 2 limbs 03/04 ORDERS Obtain outside records 10/05 ORDERS Follow up in clinic or telemedicine 10/05 [id number] Other Radiology [id number] MRI-Lumbar W/O [id number] MRI-Brain W/O Vital Signs Date Name Value Unit Description Heart Rate 78 /min pulse rate Immunizations No information available. Advance Directives No information available.
--- OUTSIDE RECORDS SUMMARY | 2025-03-13 00:22 | XMS_ITS | Continuity of Care Document ---
Author Organization [facility], [facility] Address [address] [place] [address] Care Team Providers Care Border Guard Name Role Phone ALEJANDROTEBRODIE Robert Primary Care Provider Assessment Encounter Date Assessment Date Assessment LastModified by Organization Details LastModified Time 02/22/2025 02/22/2025 59-year-old male with refractory OAB and fecal incontinence with status post stage I InterStim with greater than 50% improvement of his voiding symptoms. Plan: - We will proceed with stage II InterStim lead and battery (Feb 28) - All questions answered - Pt will need to hold warfarin 5 days prior again per his protocol (bridge with lovenox) telephone visit time 10 minutes. [email or web address] Not available 02/22/2025 11:08:08 Plan of Treatment Reminders Order Date Submit Date Provider Last Modified By Organization Details Last Modified Time Details Appointments None record ed. Lab None record ed. Referral None record ed. Procedures None record ed. Surgeries None record ed. Imaging None record ed. Medication Orders None record ed. Patient TargetsNo targets recorded. Patient InstructionsNo instructions recorded. Reason for Referral None Reported. Problems Name Problem SNOMED Code Status Onset Date Resolution Date Notes Provider Name and Address Organization Details Recorded Time Overactive urinary bladder 504730787 Active 2024 NANDA NEWBY MD [address] [place] [address],[address] [place] [address], [phone] , [facility] 09:57:38 Complete fecal incontinenc e 8331059621479 107 Active 2024 NANDA NEWBY MD [address] [place] [address],[address] [place] [address], [phone], [facility] 5 10:05:24 Incontinenc e of feces 64550691 Active 2024 NANDA NEWBY MD [address] [facility] [facility] [address], [place], [phone], [facility] 5 11:03:00 Problem Notes None recorded. Procedures Surgical History Date Name Laterality Status Provider Name and Address Organization Details Recorded Time 11/08/19 Bladder Scan completed Gertrude Garcia [facility] 11/07/2024 09:30:25 colonoscopy completed Sudha Samira [facility] 11/01/2024 16:12:55 excision of lumbar intervertebral disc completed Sudha Hogan [facility] 11/01/2024 16:13:13 [facility] lower [facility] 11/01/2024 16:13:27 Imaging Results None recorded. Procedure Notes None recorded. Medical Equipment None Reported. Allergies Allergen ID Allergen Name Allergen Category Reaction Reaction Severity Criticality Documentation Date Start Date Code Code System Note Provider Name and Address Organization Details Recorded Time 788640 aspirin medicatio n Not available Not available Not available 02/22/2025 1191 RxNorm Mary Utter [facility], [facility] 5 10:48:02 353514 lisinopri l medicatio n Not available Not available Not available 02/22/2025 48751 RxNorm Mary Utter null, [facility] 5 10:48:06 829901 azathiopr ine medicatio n Not available Not available low 02/22/20252024 1256 RxNorm Mary Utter null, [facility] 5 10:48:10 Medications Name Sig Start Date Stop Date Status Note LastModified by Organization Details LastModified Time losartan 50 mg tablet TAKE 1 TABLET (50 MG) BY MOUTH ONCE DAILY. active Not Available Not Available No t Available atorvastati n 40 mg tablet TAKE 1 TABLET BY MOUTH AT BEDTIME. active Not Available Not Available No t Available oxybutynin chloride ER 10 mg tablet,exte nded release 24 hr TAKE 1 TABLET BY MOUTH EVERY DAY FOR 360 DAYS. 02/22 completed Not Available Not Available Not Available Accu-Chek Softclix Lancets DIRECTED. TEST 2 TIMES PER DAY. active Not Available Not Available No t Available azathioprin e 50 mg tablet TAKE TWO TABLETS (100MG) BY MOUTH ONCE DAILY IN THE MORNING active Not Available Not Available No t Available clopidogrel 75 mg tablet TAKE 1 TABLET (75 MG) BY MOUTH ONCE DAILY. active Not Available Not Available No t Available zinc oxide 20 % topical ointment APPLY TOPICALLY TO AFFECTED AREA(S) USE 2 OR 3 TIMES PER DAY FOR MOISTURE BARRIER active Not Available Not Available No t Available famotidine 20 mg tablet TAKE 1 TABLET (20 MG) BY MOUTH AT BEDTIME. active Not Available Not Available No t Available metformin 1,000 mg tablet TAKE 1 TABLET (1,000 MG) BY MOUTH TWO TIMES DAILY WITH MEALS. active Not Available Not Available No t Available warfarin 5 mg tablet TAKE 1/2 TABLET (2.5 MG) BY MOUTH EVERY TUESDAY AND 1 TABLET (5 MG) THE REST OF THE DAYS IN THE EVENING OR DIRECTED. active Not Available Not Available No t Available oxybutynin chloride ER 5 mg tablet,exte nded release 24 hr TAKE 1 TABLET (5 MG) BY MOUTH ONCE DAILY. 02/22 completed Not Available Not Available Not Available gabapentin 300 mg capsule TAKE 2 CAPSULE BY MOUTH TWICE A DAY, AND TAKE 3 CAPSULE BY MOUTH EVERY NIGHT AT BEDTIME active Not Available Not Available No t Available omeprazole 20 mg capsule,del ayed release TAKE 1 CAPSULE (20 MG) BY MOUTH ONCE DAILY BEFORE A MEAL. active Not Available Not Available No t Available hydrochloro thiazide 25 mg tablet TAKE 1 TABLET (25 MG) BY MOUTH ONCE DAILY. active Not Available Not Available No t Available hydroxychlo roquine 200 mg tablet TAKE 1 TABLET (200 MG) BY MOUTH ONCE DAILY. active Not Available Not Available No t Available enoxaparin 80 mg/0.8 mL subcutaneou s syringe INJECT 80 MG SUBCUTANE OUS EVERY 12 HOURS. active Not Available Not Available No t Available fenofibrate nanocrystal lized 145 mg tablet TAKE 1 TABLET (145 MG) BY MOUTH ONCE DAILY WITH A MEAL. active Not Available Not Available No t Available Accu-Chek Guide test strips TEST 2 TIMES PER DAY. active Not Available Not Available No t Available omega-3 300 mg-dha 120 mg-epa 180 mg-fish oil 1,000 mg capsule TAKE TAKE ONE CAPSULE BY MOUTH TWO TIMES DAILY. active Not Available Not Available No t Available Paxlovid 300 mg (150 mg x 2)-100 mg tablets in a dose pack TAKE 2 NIRMATREL VIR 150 MG PINK-OVAL TABLETS AND 1 RITONAVIR 100 MG WHITE-OVA L TABLET TOGETHER TWICE DAILY FOR 5 DAYS. DATE OF SYMPTOM ONSET: 11/07 completed Not Available Not Available Not Available FreeStyle Eve 3 Sensor device TO BE USED TO READ BLOOD SUGARS, FOLLOW MANUFACTU RER DIRECTION S. active Not Available Not Available No t Available Vitals Date Recorded Body height Body mass index (BMI) Body weight Provider Name and Address Organization Details Last Updated DateTime 02/22/2025 165.1 cm 31.6 kg/m2 11454.55 g Mary Christine [facility] 02/22/2025 10:47:46 Social History Question Answer Notes LastModified by [employer] Details LastModified Time Tobacco Smoking Status [facility]/07/2024 09:30:39 What Is Your Level Of Caffeine Consumption? Moderate [email or web address] Information not available 11/07/2024 What Was The Date Of Your Most Recent Tobacco Screening? 02/22/2025 [email or web address] Information not available 02/22/2025 Has Tobacco Cessation Counseling Been Provided? No Information not available 11/07/2024 Sex: Unknown Functional Status Question Answer Note LastModified by [employer] Details LastModified Time Do you use any illicit or recreational drugs? No [email or web address] Information not available 11/07/2024 Do you or have you ever used any other forms of tobacco or nicotine? No Information not available 11/07/2024 What is your level of alcohol consumption? None [email or web address] Information not available 11/07/2024 Mental Status None recorded. Family History Nothing Reported. Medical History Condition Response Other N High Blood Pressure N Kidney Stones N Depression N Sexually Transmitted Infection N Cancer N Bleeding Disorder N Lung Disease N GERD/Acid Reflux Y High Cholesterol Y Diabetes Y Heart Disease N Immunizations Vaccine Type Date Status Note Provider Nam e and Address Organization Details Recorded Time Influenza, split virus, trivalent, preservative 0 completed Not Available [facility] 02/22/2025 10:45:51 Influenza, split virus, trivalent, preservative 1 completed Not Available [facility] 02/22/2025 10:45:51 Tdap 2 completed Not Available [facility] 02/22/2025 10:45:51 pneumococcal polysaccharide PPV23 2 completed Not Available [facility] 02/22/2025 10:45:51 Influenza, split virus, trivalent, preservative 2 completed Not Available [facility] 02/22/2025 10:45:51 Hep B, adult 3 completed Not Available [facility] 02/22/2025 10:45:51 Hep B, adult 3 completed Not Available [facility] 02/22/2025 10:45:51 Influenza, split virus, trivalent, preservative 3 completed Not Available [facility] 02/22/2025 10:45:51 Pneumococcal conjugate PCV 13 4 completed Not Available [facility] 02/22/2025 10:45:51 HPV, quadrivalent 4 completed Not Available [facility] 02/22/2025 10:45:51 Influenza, split virus, quadrivalent, PF 4 completed Not Available [facility] 02/22/2025 10:45:51 Influenza, split virus, quadrivalent, PF 5 completed Not Available [facility] 02/22/2025 10:45:51 Influenza, split virus, quadrivalent, PF 6 completed Not Available [facility] 02/22/2025 10:45:51 Influenza, split virus, quadrivalent, PF 7 completed Not Available [facility] 02/22/2025 10:45:51 Influenza, split virus, quadrivalent, PF 8 completed Not Available [facility] 02/22/2025 10:45:51 zoster recombinant 8 completed Not Available [facility] 02/22/2025 10:45:51 zoster recombinant 8 completed Not Available [facility] 02/22/2025 10:45:51 Hep B, adult 3 completed Not Available [facility] 02/22/2025 10:45:51 Influenza, split virus, quadrivalent, preservative 9 completed Not Available [facility] 02/22/2025 10:45:51 Influenza, split virus, quadrivalent, PF 0 completed Not Available [facility] 02/22/2025 10:45:51 COVID-19, mRNA, LNP-S, PF, 100 mcg/0.5mL dose or 50 mcg/0.25mL dose 1 completed Not Available [facility] 02/22/2025 10:45:51 COVID-19, mRNA, LNP-S, PF, 100 mcg/0.5mL dose or 50 mcg/0.25mL dose 1 completed Not Available [facility] 02/22/2025 10:45:51 Influenza, split virus, quadrivalent, PF 1 completed Not Available [facility] 02/22/2025 10:45:51 COVID-19, mRNA, LNP-S, PF, 100 mcg/0.5mL dose or 50 mcg/0.25mL dose 1 completed Not Available [facility] 02/22/2025 10:45:51 COVID-19, mRNA, LNP-S, PF, 100 mcg/0.5mL dose or 50 mcg/0.25mL dose 2 completed Not Available [facility] 02/22/2025 10:45:51 Influenza, split virus, quadrivalent, PF 2 completed Not Available [facility] 02/22/2025 10:45:51 COVID-19, mRNA, LNP-S, bivalent, PF, 50 mcg/0.5 mL or 25mcg/0.25 mL dose 2 completed Not Available [facility] 02/22/2025 10:45:51 Tdap 2 completed Not Available [facility] 02/22/2025 10:45:51 COVID-19, mRNA, LNP-S, PF, 50 mcg/0.5 mL 3 completed Not Available [facility] 02/22/2025 10:45:51 Influenza, split virus, quadrivalent, PF 3 completed Not Available [facility] 02/22/2025 10:45:51 COVID-19, mRNA, LNP-S, PF, 50 mcg/0.5 mL 4 completed Not Available [facility] 02/22/2025 10:45:51 Influenza, split virus, trivalent, PF 4 completed Not Available [facility] 02/22/2025 10:45:51 COVID-19, mRNA, LNP-S, PF, 50 mcg/0.5 mL 4 completed Not Available [facility] 02/22/2025 10:45:51 Past Encounters Encounter ID Performer Location Encounter Start Date Encounter Closed Date Diagnosis/Indication Diagnosis SNOMED-CT Code Diagnosis ICD10 Code Diagnosis IMO Codes Diagnosis Note [id number] NANDA NEWBY MD [facility] [address] [place] [address] 02/22/2025 10:45:30 02/28/2025 08:41:22 Overactive urinary bladder 959303892 N32.81 2293561 Incontinence of feces 72 235734 R15.9 16390098 Health Concerns Section Related Observation LastModified by Organization Detai ls LastModified Time None Recorded Concern Status LastModified by Organization Details LastModified Time None Recorded Payers Encounter Date Sequence Insurance Name Policy Number Policy [place] Covered Member ID [place] Member ID Guarantor Name 02/22/2025 1 [facility] (MEDICARE REPLACEMENT/A DVANTAGE - PPO) [id number] Christiano Johns [id number] Christiano Johns Notes Date Note Type Note Provider Name and Address Organization Details Recorded Time 5 text/html 59yo male presents for reevaluation of urinary incontinence and fecal incontinence 02/22/25: Phone visit today for symptom check. Pt is s/p stage I InterStim on 02/14.Still has urgency of urination.Has made a difference.Notes he is had a greater than 50% improvement of his urinary symptoms.Notes the stimulation of the device in the lower middle saddle region. Comfortable.Has not changed the program with the rep. Bumped stimulation to 3.5. Per pt, during the day, the frequency of fecal urgency has remained about the same. Blow outs remained about the same. Voiding Diary (Bladder):Total voids 11--> 5.4 (decrease 51%)Voids awake 10-->3.7 (decrease 63%)Voids asleep 1 -->1.7 (Degree of urgency 4--> 2.7 (decrease 32%)Leaks 10 -->3.9 (decrease 61%)Ave leak amount 3-->2.1 (decrease 30%)Protection amount (6-->3.7) decrease of 38% Bowel diary:Degree of urgency 4-->3.3Accidents 2-->2.5 Current patient location:[place] location:[facility] compliant platform used:yesPrior to conducting our telephone visit, the patient was apprised of the risks, benefits and alternatives to telephone visits including but not limited to poor audio quality, interrupted visits due to technological limitations, delays in medical evaluation and treatment due to deficiencies or failures of equipment, failure of security protocols resulting in a breach of privacy of personal medical information and a lack of access to complete medical records resulting in not fully informed. It was not possible for the patient to sign the privacy regulations, HIPAA release and assignment of benefits forms. The patient was given the opportunity to ask questions about these policies and gave verbal acknowledgement and approval of these policies as well as to hold this meeting by telephone. Lastly, the patient agreed to allowing their medication history to be pulled from a national pharmacy database to facilitate and coordinate their care. Records:Saw his pcp on 10/10/24 and noted he has urinary incontinence ongoing for 5 years. He does feel need to void but thinks he may leak at times as well. He wears disposable undergarments. He changes twice daily, recently advised to four times daily but requires staff from assisted living to help with this. stopped his diuretic. 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, [place], [address], [facility] [place] [facility] 02/22/2025 11:08:25
--- OUTSIDE RECORDS SUMMARY | 2025-03-13 00:22 | XMS_ITS | Data Portability ---
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 Not available 02/22/2025 11:08:08 Plan of Treatment Reminders Order Date Submit Date Provider Last Modified By Organization Details Last Modified Time Details Appointments None recorded. Lab None recorded. Referral None recorded. Procedures None recorded. Surgeries None recorded. Imaging None recorded. Medication Orders oxybutynin chloride ER 10 mg tablet,exte nded release 24 hr 2024 025 [facility], [address] [place], [address], 10:49:28 Patient TargetsNo targets recorded. Patient Instructions Encounter Date Encounter Id Patient Instructions Last Modified By Organization Details Last Modified Time 11/07/2024 [id number] Sacral Neuromodulation (SNM): Benefits: SNM involves the implantation of a small device that delivers electrical impulses to the sacral nerves, which control bladder function and bowel function. Effective in reducing OAB symptoms and improving bladder capacity as well as treating FI. Long-term solution with potential for sustained benefits. Reversible procedure, as the device can be removed if necessary. Risks: Potential risks include infection, pain at the implant site, discomfort during the healing process, and device-related complications. It may take several weeks to months to determine the optimal settings for the device. In rare cases, the device may need to be repositioned or replaced due to technical issues or inadequate response. Not available 11/07/2024 10:06:57 Reason for Referral None Reported. Problems Name Problem SNOMED Code Status Onset Date Resolution Date Notes Provider Name and Address Organization Details Recorded Time Overactive urinary bladder 185366428 Active 2024 NANDA NEWBY MD [address] [place] [address],[address] [place] [address], [phone], [facility] 09:57:38 Complete fecal incontinenc e 8863858195702 107 Active 2024 NANDA NEWBY MD [address] [place] [address],[address] [place] [address], [phone], [facility] 10:05:24 Incontinenc e of feces 39162474 Active 2024 NANDA NEWBY MD [address] [place] [address],[address] [place] [address], [phone], [facility] 11:03:00 Problem Notes None recorded. Procedures Surgical History Date Name Laterality Status Provider Name and Address Organization Details Recorded Time 11/08/19 Bladder Scan completed Gertrude Garcia [facility] 11/07/2024 09:30:25 colonoscopy completed Sudha Hogan [facility] 11/01/2024 16:12:55 excision of lumbar intervertebral disc completed Sudha Hogan [facility] 11/01/2024 16:13:13 amputation of left lower limb completed Sudha Hogan [facility] 11/01/2024 16:13:27 Imaging Results None recorded. Procedure Notes None recorded. Medical Equipment None Reported. Allergies Allergen ID Allergen Name Allergen Category Reaction Reaction Severity Criticality Documentation Date Start Date Code Code System Note Provider Name and Address Organization Details Recorded Time 019711 aspirin medicatio n Not available Not available Not available 02/22/2025 1191 RxNorm Mary Utter null, [facility] 5 10:48:02 [id number] lisinopri l medicatio n Not available Not available Not available 02/22/2025 09760 RxNorm Mary Utter null, [facility] 5 10:48:06 182057 azathiopr ine medicatio n Not available Not available low 02/22/20252024 1256 RxNorm Mary Utter null, [facility] 5 10:48:10 Medications Name Sig Start Date [...] completed Not Available Not Available Not Available [employer] Tablet [employer] Eve 3 Sensor device TO BE USED TO READ BLOOD SUGARS, FOLLOW MANUFACTU RER DIRECTION S. active Not Available Not Available No t Available Vitals Date Recorded Body height Body mass index (BMI) Body weight Provider Name and Address Organization Details Last Updated DateTime 02/22/2025 165.1 cm 31.6 kg/m2 70531.55 g Mary Christine [facility] 02/22/2025 10:47:46 Social History Question Answer Notes LastModified by Organizat ion Details LastModified Time Tobacco Smoking Status Never Smoker Gertrude Acevedostephanie riley [facility] 11/07/2024 09:30:39 What Is Your Level Of Caffeine Consumption? Moderate [email or web address] Information not available 11/07/2024 What Was The Date Of Your Most Recent Tobacco Screening? 02/22/2025 [email or web address] Information not available 02/22/2025 Has Tobacco Cessation Counseling Been Provided? No Information not available 11/07/2024 Sex: Unknown Functional Status Question Answer Note LastModified by Organizat ion Details LastModified Time Do you use any illicit or recreational drugs? No [email or web address] Information not available 11/07/2024 Do you or have you ever used any other forms of tobacco or nicotine? No [email or web address] Information not available 11/07/2024 What is your level of alcohol consumption? None [email or web address] Information not available 11/07/2024 Mental Status None recorded. Family History Nothing Reported. Medical History Condition Response Diabetes Y Sexually Transmitted Infection N Bleeding Disorder N Other N High Blood Pressure N Kidney Stones N Cancer N Lung Disease N Depression N High Cholesterol Y GERD/Acid Reflux Y Heart Disease N Immunizations Vaccine Type Date Status Note Provider Nam e and Address Organization Details Recorded Time Influenza, split virus, trivalent, preservative 0 completed Not Available [facility] 02/22/2025 10:45:51 Influenza, split virus, trivalent, preservative 1 completed Not Available [facility] 02/22/2025 10:45:51 Tdap 2 completed Not Available [facility] 02/22/2025 10:45:51 pneumococcal polysaccharide PPV23 2 completed Not Available [facility] 02/22/2025 10:45:51 Influenza, split virus, trivalent, preservative 2 completed Not Available [facility] 02/22/2025 10:45:51 Hep B, adult 3 completed Not Available [facility] 02/22/2025 10:45:51 Hep B, adult 3 completed Not Available [facility] 02/22/2025 10:45:51 Influenza, split virus, trivalent, preservative 3 completed Not Available [facility] 02/22/2025 10:45:51 Pneumococcal conjugate PCV 13 4 completed Not Available [facility] 02/22/2025 10:45:51 HPV, quadrivalent 4 completed Not Available [facility] 02/22/2025 10:45:51 Influenza, split virus, quadrivalent, PF 4 completed Not Available [facility] 02/22/2025 10:45:51 Influenza, split virus, quadrivalent, PF 5 completed Not Available [facility] 02/22/2025 10:45:51 Influenza, split virus, quadrivalent, PF 6 completed Not Available [facility] 02/22/2025 10:45:51 Influenza, split virus, quadrivalent, PF 7 completed Not Available [facility] 02/22/2025 10:45:51 Influenza, split virus, quadrivalent, PF 8 completed Not Available [facility] 02/22/2025 10:45:51 zoster recombinant 8 completed Not Available [facility] 02/22/2025 10:45:51 zoster recombinant 8 completed Not Available [facility] 02/22/2025 10:45:51 Hep B, adult 3 completed Not Available [facility] 02/22/2025 10:45:51 Influenza, split virus, quadrivalent, preservative 9 completed Not Available [facility] 02/22/2025 10:45:51 Influenza, split virus, quadrivalent, PF 0 completed Not Available [facility] 02/22/2025 10:45:51 COVID-19, mRNA, LNP-S, PF, 100 mcg/0.5mL dose or 50 mcg/0.25mL dose 1 completed Not Available [facility] 02/22/2025 10:45:51 COVID-19, mRNA, LNP-S, PF, 100 mcg/0.5mL dose or 50 mcg/0.25mL dose 1 completed Not Available [facility] 02/22/2025 10:45:51 Influenza, split virus, quadrivalent, PF 1 completed Not Available [facility] 02/22/2025 10:45:51 COVID-19, mRNA, LNP-S, PF, 100 mcg/0.5mL dose or 50 mcg/0.25mL dose 1 completed Not Available [facility] 02/22/2025 10:45:51 COVID-19, mRNA, LNP-S, PF, 100 mcg/0.5mL dose or 50 mcg/0.25mL dose 2 completed Not Available [facility] 02/22/2025 10:45:51 Influenza, split virus, quadrivalent, PF 2 completed Not Available [facility] 02/22/2025 10:45:51 COVID-19, mRNA, LNP-S, bivalent, PF, 50 mcg/0.5 mL or 25mcg/0.25 mL dose 2 completed Not Available [facility] 02/22/2025 10:45:51 Tdap 2 completed Not Available [facility] 02/22/2025 10:45:51 COVID-19, mRNA, LNP-S, PF, 50 mcg/0.5 mL 3 completed Not Available [facility] 02/22/2025 10:45:51 Influenza, split virus, quadrivalent, PF 3 completed Not Available [facility] 02/22/2025 10:45:51 COVID-19, mRNA, LNP-S, PF, 50 mcg/0.5 mL 4 completed Not Available [facility] 02/22/2025 10:45:51 Influenza, split virus, trivalent, PF 4 completed Not Available [facility] 02/22/2025 10:45:51 COVID-19, mRNA, LNP-S, PF, 50 mcg/0.5 mL 4 completed Not Available [facility] 02/22/2025 10:45:51 Past Encounters Encounter ID Performer Location Encounter Start Date Encounter Closed Date Diagnosis/Indication Diagnosis SNOMED-CT Code Diagnosis ICD10 Code Diagnosis IMO Codes Diagnosis Note [id number] NANDA NEWYB MD [facility] [address] [place] [phone] 11/07/2024 09:07:29 11/08/2024 09:26:50 Overactive urinary bladder 910983632 N32.81 1998174 Complete f ecal incontinence 1844969230 170699 R15.9 383118 [id number] NANDA NEWBY MD [facility] [address] [place] [address] 02/22/2025 10:45:30 02/28/2025 08:41:22 Overactive urinary bladder 935129911 N32.81 5228632 Incontinence of feces 72 152466 R15.9 [id number] Health Concerns Section Related Observation LastModified by Organization Detai ls LastModified Time None Recorded Concern Status LastModified by Organization Details LastModified Time None Recorded Advance Directives Directive None Recorded Payers Insurance Date Sequence Insurance Name Policy Number Policy [place] Covered Member ID [place] Member ID Guarantor Name 03/11/2025 1 [facility] (MEDICARE REPLACEMENT/A DVANTAGE - PPO) [id number] Christiano Loja Nerud [id number] Christiano Loja Nerud 02/27/2025 1 [facility] - MEDICA Christiano R Nerud [id number] Christiano R Nerud 02/27/2025 1 [place] [facility] Christiano Loja Nerud [id number] Christiano Loja Nat Notes Date Note Type Note Provider Name and Address Organization Details Recorded Time 5 text/html 59yo male referred by Brodie Carpio MD for urinary incontinence and fecal incontinence Records:Saw his pcp on 10/10/24 and noted [...] to toe infection, Lupus anticoagulant on WarfarinNonsmokerHas [employer]UCK [employer]SIDER shunt, has it checked every 2 years [...] UTIs PVR 30cc NANDA NEWBY MD [address],[place] [address], [place], [address], [facility] 11/07/2024 10:09:35 5 text/html 59yo male presents for reevaluation [...] of urgency 4-->3.3Accidents 2-->2.5 Current patient location:[place] location:[facility] compliant platform used:yesPrior to conducting our telephone [...] to toe infection, Lupus anticoagulant on WarfarinNonsmokerHas [employer] shunt, has it checked every 2 years [...] monthsNo UTIs PVR 30cc NANDA NEWBY MD [address] [place] [address],[address], [place], [address], [facility] 02/22/2025 11:08:25
--- OUTSIDE RECORDS SUMMARY | 2025-03-13 00:23 | XMS_ITS | Clinical Summary ---
Author Organization [facility] Address [address] [place] [address] Care Team Providers Care [employer] Registrar Name Role Phone Henry Mckeon MD Unavailable [phone] Other-None Unavailable Unavailable Jose Flower MD Unavailable [phone] Emmanuel Foy MD Unavailable Unavailable Christiano Jerome OD Unavailable [phone] Dg Del Castillo MD Unavailable [phone] Truong Carpio MD Primary Care Provider + Allergies Active Allergy Reactions Criticality Noted Date Comments Bee Sting Kit Hives 2025 Lisinopril Angioedema Medium 04/28/2012 Medications Calcium carbonate (OYSTERSHELL CALCIUM) 500 mg tablet Take 500 mg by mouth 2 times daily with meals. Active NATURAL DRAWER FITTER MULTIVITAMIN ORAL Take 1 tablet by mouth [...] hand but not currently using. 025 Active Lntim-0-ASH-EPA-Fi sh Oil 1,000 (120-180) mg capIndications:Dys lipidemia Take by mouth two times daily. 180 Capsule 3 025 Active calcium carbonate (CALTRATE) 600 mg calcium (1,500 mg) tabletIndications: Takes dietary supplements Take 1 Tablet (600 mg) by mouth two times daily with meals. 180 Tablet 3 Active multivitamin (MVI) tabletIndications: Takes dietary supplements [...] and basket for personal items. 1 Each Active blood-glucose meterIndications:T ype 2 diabetes mellitus with diabetic neuropathy, without long-term current use of insulin (HC) by Not Applicable route. Dispense meter covered by pts insurance. 1 Each Active blood sugar diagnostic (Blood Glucose Test) stripIndications:T ype 2 diabetes mellitus with diabetic neuropathy, without long-term current use of insulin (HC) Test 2 times per day. 100 Each 025 Active lancetsIndications :Type 2 diabetes mellitus with diabetic neuropathy, without long-term current use of insulin (HC) As directed. Test 2 times per day. 100 Each Active zinc oxide 20 % psteIndications:Sk in problem Apply topically to affected area(s). Use 2 or 3 times per day for moisture barrier 60 g Active losartan 50 mg tabletIndications: HTN (hypertension) Take 1 Tablet (50 mg) by mouth once daily. 90 Tablet 3 025 Active oxybutynin XL 10 mg CR tabletIndications: Overactive bladder Take 1 Tablet (10 mg) by mouth once daily. Active atorvastatin 40 mg tabletIndications: Dyslipidemia,PAD (peripheral [...] ONCE DAILY. 90 Tablet 1 025 Active enoxaparin (LOVENOX) 80 mg/0.8 mL injectionIndicatio ns:Anti-phospholip id syndrome (HC),Anticoagulati on monitoring, INR range 2-3,Pulmonary embolism on left (HC),History of DVT (deep vein thrombosis),Acute deep vein thrombosis (DVT) of popliteal vein of right lower extremity (HC),Chronic atrial fibrillation (HC) INJECT 80 MG SUBCUTANEOUS EVERY 12 HOURS. 8 mL 1 025 Active enoxaparin (LOVENOX) 80 mg/0.8 mL injection Inject 80 mg subcutaneous every 12 hours. Active cephalexin 500 mg capsuleIndications :Sacral neurostimulator in situ Take 1 Capsule (500 mg) by mouth two times daily for 5 days. 10 Capsule 03/08/20 25 10:30 AM CDT 025 2024 Active warfarin (COUMADIN) 5 mg tabletIndications: Anti-phospholipid syndrome (HC),Anticoagulati on monitoring, INR range 2-3,Pulmonary embolism on left (HC),Acute deep vein thrombosis (DVT) of popliteal vein of right lower extremity (HC),Chronic atrial fibrillation (HC) Take by mouth 03/14: 5 mg; Otherwise 2.5 mg every Tue, Charito; 5 mg all other days in the evening OR as directed 025 Active enoxaparin 80 mg/0.8 mL injectionIndicatio [...] Hold; 02/27: Hold; Otherwise 2.5 mg every Mon, Charito; 5 mg all other days in the evening OR as directed 2024 Discontinued( Reorder (E-cancel not sent)) cephalexin 250 mg capsuleIndications :PROPHYLAXIS Take 2 Capsules (500 mg) by mouth two times daily for 14 days. 56 Capsule 02/15/20 25 1:39 PM CDT 2024 warfarin (COUMADIN) 5 mg tabletIndications: Anti-phospholipid syndrome (HC),Anticoagulati on monitoring, INR range 2-3,Pulmonary embolism on left (HC),Acute deep vein thrombosis (DVT) of popliteal vein of right lower extremity (HC),Chronic atrial fibrillation (HC) Take by mouth Hold Warfarin 02/09/25 through 03/07/25 resuming warfarin dose at 2.5 mg every Mon, Charito; 5 mg all other days in the evening OR as directed 2024 Discontinued( Other - add note to specify (E-cancel not sent)) warfarin (COUMADIN) 5 mg tabletIndications: Anti-phospholipid syndrome (HC),Anticoagulati on monitoring, INR range 2-3,Pulmonary embolism on left (HC),Acute deep vein thrombosis (DVT) of popliteal vein of right lower extremity (HC),Chronic atrial fibrillation (HC) Take by mouth 03/07: Hold; Otherwise 2.5 mg every Mon, Charito; 5 mg all other days in the evening OR as directed 2024 Discontinued( Other - add note to specify (E-cancel not sent)) Active Problems Problem Noted Date Diagnosed Date Atherosclerosis of [place] of extremities with rest pain, [...] below knee amputation 01/01/2014 Hydrocephalus 12/27/2013 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 Issue of repeat prescription 11/14/2013 [...] Care Agent(s): Primary Health Care Agent: Gosia Wenz Relationship: sister Secondary Health Care Agent: Relationship: [...] Encounters Date Type Department Care Team Description 03/12/2025 Telephone [facility] [address] [place] [address] Truong Carpio MD Anticoagulation 03/12/2025 Anticoagulation (warfarin) [facility] [address] [place] [address] NurseMaria Anticoagulation (MARGO) 03/08/2025 7:46 AM CDT Anesthesia Event [facility] [address] [place] [address] Wyatt Sheriff MD Gruber, Christopher Scott, DESIGN ARCHITECT 03/08/2025 7:15 AM CDT - 03/08/2025 8:35 AM CDT Surgery [facility] [address] [place] [address] Lilian Aguilar MD STAGE TWO INTERSTIM BATTERY, IMPLANTABLE PULSE GENERATOR PLACEMENT 03/08/2025 5:09 AM CDT - 03/08/2025 11:47 AM CDT Hospital Encounter [facility] [address] [place] [address] Lilian Aguilar MD Sacral neurostimulator in situ (Primary Dx) Discharge Disposition: Home Self Care 2025 Anticoagulation (warfarin) [facility] [address] [place] [address] NurseMaria Anticoguerline Anticoagulation (Chart update) 2025 Telephone [facility] [address] [place] [address] Truong Carpio MD Anticoagulation; Nurse/Clinic Staff Only 2025 Travel 03/05/2025 Orders Only [facility] Scanner 1 scan: (1-Ord) [facility], INR RESULT, 03/05/2025 03/05/2025 Anticoagulation (warfarin) [facility] [address] [place] [address] NurseMaria Anticoguerline Anticoagulation (Chart update) 03/05/2025 Telephone [facility] [address] [place] [address] Truong Carpio MD Anticoagulation 03/05/2025 Telephone [facility] [address] [place] [address] Truong Carpio MD 02/27/2025 10:40 AM CDT Phone Office Visit [facility] [address] [place] [address] Dg Del Castillo MD 02/27/2025 Telephone [facility] [address] [place] [address] Truong Carpio MD appointments 02/27/2025 Telephone [facility] [address] [place] [address] Truong Carpio MD Anticoagulation 02/27/2025 Travel 02/26/2025 Orders Only [facility] Scanner 1 scan: (1-Ord) [facility], PLT , 02/26/2025 02/26/2025 Telephone [facility] [address] [place] [address] Truong Carpio MD Anticoagulation (Platelets) 02/26/2025 Telephone [facility] [address] [place] [address] Truong Carpio MD Medication Management (LOVENOX Missed Dose ) 02/25/2025 3:00 PM CDT Orders Only [facility] [address] [place] [address] Lab, [place] Lab 02/25/2025 Travel 02/25/2025 Telephone [facility] [address] [place] [address] Truong Carpio MD Error-please disregard 02/25/2025 Refill [facility] [address] [place] [address] Truong Carpio MD Refill Request (Enoxaparin) 02/20/2025 Travel 02/20/2025 Telephone [facility] [address] [place] [address] Mj Collado MD Follow Up 02/20/2025 Telephone [facility] [address] [place] [address] Mj Collado MD Follow Up 02/19/2025 Orders Only [facility] Scanner 1 scan: (1-Ord) [facility] PLT RESULT, 02/19/2025 02/19/2025 Telephone [facility] [address] [place] [address] Truong Carpio MD Anticoagulation (Platelet) 02/19/2025 Anticoagulation (warfarin) [facility] [address] [place] [address] Truong Carpio MD Error-please disregard (opened in error) 02/14/2025 11:31 AM CDT Anesthesia Event [facility] [address] [place] [address] Roman Ignacio MD Santiago, Matthew Ryan, DESIGN ARCHITECT 02/14/2025 10:06 AM CDT - 02/14/2025 12:00 PM CDT Surgery [facility] [address], [place] [address] Lilian Aguilar MD INTERSTIM STAGE ONE SACRAL NEUROMODULATION 02/14/2025 8:44 AM CDT - 02/14/2025 7:28 PM CDT Hospital Encounter [facility] [address] [place] [address] Lilian Aguilar MD Overactive bladder (Primary Dx) Discharge Disposition: Intermediate Facility 02/14/2025 Travel 02/13/2025 2:15 PM CDT Office Visit [facility] [address] [place] [address] Tiana Deleon DO Preoperative Exam (02/14/25-bladder/INTE RSTIM STAGE ONE SACRAL NEUROMODULATION) 02/12/2025 Travel 02/12/2025 Telephone [facility] [address] [place] [address] Truong Carpio MD 02/08/2025 Telephone [facility] [address] [place] [address] Truong Carpio MD Appointment Request (PROTIME INR) 01/31/2025 Telephone [facility] [address] [place] [address] Truong Carpio MD Anticoagulation (orders) 01/31/2025 Telephone [facility] [address] [place] [address] VoteTruong gutierrez MD Anticoagulation 01/31/2025 Telephone [facility] [address] [place] [address] VoteTruong gutierrez MD Medication Management 01/31/2025 Telephone [facility] [address] [place] [address] VoteTruong gutierrez MD Anticoagulation 01/31/2025 Telephone [facility] [address] [place] [address] VoTruong malik MD Anticoagulation (Abnormal bridging labs. ) 01/31/2025 Anticoagulation (warfarin) [facility] [address] [place] [address] Nurse, Ahg Anticoag Anticoagulation 01/30/2025 3:00 PM CDT Orders Only [facility] [address] [place] [address] Lab, [place] <No scans attached> 01/30/2025 Travel 01/29/2025 Telephone [facility] [address] [place] [address] Truong Carpio MD 01/21/2025 Refill [facility] [address] [facility] [address] [place] [address] Dg Del Castillo MD Refill Request (Hydroxychloroquine) 01/15/2025 Telephone [facility] [address] [place] [address] Truong Carpio MD 01/15/2025 Telephone [facility] [address] [place] [address] VoTruong malik MD 01/09/2025 Telephone [facility] [address] [place] [address] Truong Carpio MD Anticoagulation 01/08/2025 1:30 PM CDT Orders Only [facility] [address] [place] [address] Lab, [place] <No scans attached> 01/08/2025 Anticoagulation (warfarin) [facility] [address] [place] [address] Nurse, Maria Anticoag Anticoagulation (MARGO) 01/08/2025 Travel 12/31/2024 Telephone [facility] [address] [place] [address] Truong Carpio MD Anticoagulation 12/26/2024 Anticoagulation (warfarin) [facility] [address] [place] [address] Nurse, Maria Anticoag Anticoagulation (Lab ) 12/25/2024 12:45 PM CDT Orders Only [facility] [address] [place] [address] Lab, [place] Lab 12/25/2024 Travel 12/20/2024 Travel 12/18/2024 Anticoagulation (warfarin) [facility] [address] [place] [address] NurseMaria Anticoguerline Anticoagulation (Chart update) 12/18/2024 Telephone [facility] [address] [place] [address] Truong Carpio MD Anticoagulation (Procedure rescheduled to Sept) 12/17/2024 Telephone [facility] [address] [place] [address] Truong Carpio MD Anticoagulation (Procedure hold.) 12/17/2024 Anticoagulation (warfarin) [facility] [address] [place] [address] NurseMaria Anticoag Anticoagulation (Chart update ) 12/13/2024 Telephone [facility] [address] [place] [address] Truong Carpio MD Anticoagulation (abnormal labs) 12/13/2024 Telephone [facility] [address] [place] [address] Truong Carpio MD Anticoagulation (OPA - Lovenox) 12/12/2024 1:30 PM CDT Orders Only [facility] [address] [place] [address] Lab, [place] Lab 12/12/2024 Anticoagulation (warfarin) [facility] [address] [place] [address] Nurse, Larryg Anticoag Anticoagulation 12/12/2024 Travel from Last 3 Months Immunizations Immunization [...] PM CDT Legal Sex Male 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 Gender Identity Not on file Sexual Orientation Not on file Obstetrics History Last Filed Vital Signs Vital Sign Reading Time Taken Comments Blood Pressure 151/69 03/08/2025 11:00 AM CDT Pulse 84 03/08/2025 11:00 AM CDT Temperature 36.8 C (98.3 F) 03/08/2025 10:00 AM CDT Respiratory Rate 16 03/08/2025 11:00 AM CDT Oxygen Saturation 98% 03/08/2025 11:00 AM CDT Inhaled Oxygen Concentration - - Weight 90.7 kg (200 lb) 03/08/2025 6:30 AM CDT Height 165.1 cm (5' 5) 03/08/2025 6:30 AM CDT Body Mass Index 33.28 03/08/2025 6:30 AM CDT Plan of Treatment Upcoming Encounters Date Type Department Care Team (Late st Contact Info) Description 03/28/2025 10:00 AM CDT Office Visit [facility] [address] [place] [address] Truong Carpio MD [address] [place] [address] 04/22/2025 9:45 AM COMMUNITY SERVICE WORKER Ancillary Procedure [facility] [address] [place] [address] 04/22/2025 10:45 AM COMMUNITY SERVICE WORKER Ancillary Procedure [facility] [address] [place] [address] 04/22/2025 11:30 AM COMMUNITY SERVICE WORKER Office Visit [facility] [address] [place] [address] Mj Collado MD [address] [place] [address] Health Maintenance Due Date Last Done Comments Pneumococcal series for age 50+ (3 of 3 - PCV20 or PCV21) 10/31/2018 10/31/2013, 10/28/2011 COVID-19 vaccine series (9 - Moderna risk season) 2025 04/25/2024, 09/28/2023, 03/28/2023, Additional history exists Influenza Vaccine (#1) 2025 4, 04/05/2023, 02/22/2022, Additional history exists Fecal testing sDNA-FIT (Whitney guard) for age 45-75 06/25/2025 06/25/2022 Depression [...] history exists Medical Devices Implanted Type Area Patient Relations Specialist Device Identifier Shelf Expiration Date Model / Serial / Lot Shunt System 15cm Stra [id number] [id number] - [id number] Implanted:Qty: 1 on 12/28/2013 at [facility] Right: Cranium Integra sigmacare Rita [id number]# / / [id number] Graft Vasc 6x40mm 60cm Propaten - [id number] Implanted:Qty: 1 on 03/16/2024 by Mj Collado MD at [facility] Right: Leg W L [place] 10/30/2026 [id number] / [id number] / Lead Kit 4.32mm Spacing 28cm Length Interstim - [id number] Implanted:Qty: 1 on 02/14/2025 by Lilian Aguilar MD at [facility] Med[employer] Pain Therapy 05/08/2026 [id number] / / [id number] Cable Perk Ext 4.32mm Interstim Lead Implanted:Qty: 1 on 02/14/2025 by Lilian Aguilar MD at [facility] 10/31/2025 [id number] / / [id number] Description:Cable Perk Ext 4 .32mm Interstim Lead Sys Interstim X Surescan Mri Lead And Smart Fire Extinguisher Repairer - [id number] Implanted:Qty: 1 on 03/08/2025 by Lilian Aguilar MD at [facility] [employer] Pain Therapy 05/10/2025 [id number] / [id number] / Procedures Procedure Name Priority Date/Time Associated Diagnosis Comments INR,POCT Routine 03/12/2025 GLUCOSE METER Timed 03/08/2025 9:10 AM CDT IMPLANT SACRAL LEAD STAGE TWO Tier 2: within 30 days 03/08/2025 7:14 AM CDT Overactive bladder, Full incontinence of feces Case Notes JOSE NASCIMENTO [employer] NOTIFIED FOR CASE ON THE 729 START TIME GLUCOSE METER Timed 03/08/2025 7:00 AM CDT SCAN-CARDIAC STRIP 03/08/2025 12:00 AM CDT SCAN-LABORATORY REPORT 03/05/2025 12:00 AM CDT SCAN-LABORATORY REPORT 02/26/2025 12:00 AM CDT PLATELET COUNT STAT 02/25/2025 2:57 PM CDT [...] Overactive bladder Case Notes Agus Flood from [employer] was notified via email and Phone. Have [...] SDNA-FIT EXTERNAL (COLOGUARD) Routine 06/25/2022 7:30 AM COMMUNITY SERVICE WORKER Screening for colon cancer EXPOSURE (BBF) RAPID HIV Routine 07/03/2012 2:24 PM COMMUNITY SERVICE WORKER Needle Stick Injury EXPOSURE (BBF) ANTI HCV Routine 07/03/2012 2:24 PM COMMUNITY SERVICE WORKER Needle Stick Injury from Last 3 Months or Most Recently Relevant to Health Maintenance Results * (ABNORMAL) INR,POCT (03/12/2025) INR 1.3(OLIVE BRINE TESTER AL) 0.0 - 1.2 [facility] Blood BLOOD SPECIMEN / Unknown 03/12/2025 us Truong Carpio MD LABORATORY Final Re sult [facility] [address] [place] [address], * (ABNORMAL) GLUCOSE METER (03/08/2025 9:10 AM CDT) Only the most recent of4 resultswithin the time period is included. [facility] GLUCOSE METER 152(H) 65 - 100 mg/dL 03/08/2025 9:15 AM CDT [facility] Blood BLOOD SPECIMEN / Unknown 03/08/2025 9:10 AM CDT 03/08/2025 9:15 AM CDT us Lilian Aguilar MD CHEMISTRY Final Result Performing Organization Address City/[facility]/ZIP Co de Phone Number [facility] [address] [place] [address], [place] * SCAN-CARDIAC STRIP (03/08/2025 12:00 AM CDT) Narrative 03/08/2025 12:00 AM CDT Ordered by an unspecified provider. us Other Clinical Staff OTHER Final Resul t * SCAN-LABORATORY REPORT (03/05/2025 12:00 AM CDT) Only the most recent of3 resultswithin the time period is included. us Scanner OTHER Final Result * (ABNORMAL) STAT - PLATELET COUNT [75114.2] - Standing Order (02/25/2025 2:57 PM CDT) PLATELET COUNT 306 140 - 440 thou/cu mm 02/25/2025 5:07 PM CDT [facility] MPV 11.5(H) 6.5 - 11.0 fL 02/25/2025 5:07 PM CDT [facility] Blood BLOOD SPECIMEN / Unknown [facility] / Unknown 02/25/2025 2:57 PM CDT 02/25/2025 2:57 PM CDT us Truong Carpio MD HEMATOLOGY Final Re sult [facility] [address] [place] [address] * XR C-ARM GREATER 1 HR (02/14/2025 [...] - 11.0 thou/cu mm 02/13/2025 6:48 PM CDT [facility] RED BLOOD COUNT 3.80(L) 4.30 - 5.90 mil/cu mm 02/13/2025 6:48 PM CDT [facility] HEMOGLOBIN 10.8(L) 13.5 - 17.5 g/dL 02/13/2025 6:48 PM CDT [facility] HEMATOCRIT 33.4(L) 37.0 - 53.0 % 02/13/2025 6:48 PM CDT [facility] MCV 88 80 - 100 fL 02/13/2025 6:48 PM CDT [facility] MCH 28.4 26.0 - 34.0 pg 02/13/2025 6:48 PM CDT [facility] MCHC 32.3 32.0 - 36.0 g/dL 02/13/2025 6:48 PM [facility] RDW 16.7(H) 11.5 - 15.5 % 02/13/2025 6:48 PM CDT [facility] PLATELET COUNT 443(H) 140 - 440 thou/cu mm 02/13/2025 6:48 PM T [facility] MPV 11.1(H) 6.5 - 11.0 fL 02/13/2025 6:48 PM T [facility] Blood BLOOD SPECIMEN / Unknown [facility] / Unknown 02/13/2025 3:30 PM CDT 02/13/2025 3:30 PM CDT [facility] LABORATORY - 02/13/2025 6:48 PM CDT Preop less than 24 hours. us Tiana Huntert DO HEMATOLOGY Final Resul t [facility] [address] [place] [address] * (ABNORMAL) RED CELL MORPHOLOGY (02/13/2025 3:30 PM CDT) Pathologist [facility] ELLIPTOCYTES Few 02/13/2025 6:48 PM CDT [facility] RBC COMMENT Present(A ) RBC morphology appears normal, RBC morphology within normal limits for newborns. 02/13/2025 6:48 PM CDT [facility] Blood BLOOD SPECIMEN / Unknown [facility] / Unknown 02/13/2025 3:30 PM CDT 02/13/2025 3:30 PM CDT [facility] LABORATORY - 02/13/2025 6:48 PM CDT Preop less than 24 hours. us Tiana Deleon DO HEMATOLOGY Final Resul t Performing Organization Address City/[facility]/ZIP Co de Phone Number [facility] [address] [place] [address] * (ABNORMAL) PLATELET ESTIMATE (02/13/2025 3:30 PM CDT) [facility] PLATELET ESTIMATE Increased (A) Adequate, No estimate 02/13/2025 6:48 PM CDT [facility] Blood BLOOD SPECIMEN / Unknown [facility] / Unknown 02/13/2025 3:30 PM CDT 02/13/2025 3:30 PM CDT [facility] LABORATORY - 02/13/2025 6:48 PM CDT Preop less than 24 hours. us Tiana Deleon DO HEMATOLOGY Final Resul t [facility] [address] [place] [address] * (ABNORMAL) MANUAL DIFFERENTIAL (02/13/2025 3:30 PM CDT) [facility] % NEUTROPHILS 67.0 % 02/13/2025 6:48 PM CDT [facility] % LYMPHOCYTES 9.0 % 02/13/2025 6:48 PM CDT [facility] % MONOCYTES 18.0 % 02/13/2025 6:48 PM CDT [facility] % EOSINOPHILS 4.0 % 02/13/2025 6:48 PM CDT [facility] % BASOPHILS 2.0 % 02/13/2025 6:48 PM CDT [facility] NEUTROPHILS ABSOLUTE 3.4 1.7 - 7.0 thou/cu mm 02/13/2025 6:48 PM CDT [facility] LYMPHOCYTES ABSOLUTE 0.5(L) 0.9 - 2.9 thou/cu mm 02/13/2025 6:48 PM CDT [facility] MONOCYTES ABSOLUTE 0.9(H) <0.9 thou/cu mm 02/13/2025 6:48 PM CDT [facility] EOSINOPHILS ABSOLUTE 0.2 <0.5 thou/cu mm 02/13/2025 6:48 PM CDT [facility] BASOPHILS ABSOLUTE 0.1 <0.3 thou/cu mm 02/13/2025 6:48 PM CDT [facility] Blood BLOOD SPECIMEN / Unknown [facility] / Unknown 02/13/2025 3:30 PM CDT 02/13/2025 3:30 PM CDT [facility] LABORATORY - 02/13/2025 6:48 PM CDT Preop less than 24 hours. us Tiana Schwartz Detert DO HEMATOLOGY Final Resul t [facility] [address] [place] [address] * (ABNORMAL) BASIC METABOLIC PANEL (02/13/2025 3:30 PM CDT) SODIUM 139 136 - 145 mmol/L 02/13/2025 7:20 PM CDT [facility] POTASSIUM 4.2 3.5 - 5.1 mmol/L 02/13/2025 7:20 PM T [facility] CHLORIDE 102 98 - 107 mmol/L 02/13/2025 7:20 PM CDT [facility] CO2,TOTAL 25 22 - 29 mmol/L 02/13/2025 7:20 PM [facility] ANION GAP 12 5 - 18 02/13/2025 7:20 PM T [facility] GLUCOSE 117(H) 70 - 99 mg/dL 02/13/2025 7:20 PM T [facility] CALCIUM 9.8 8.8 - 10.4 mg/dL 02/13/2025 7:20 PM T [facility] Comment: Reference ranges for this test were updated on 04/17/2024 to reflect our healthy population more accurately. Reference range changes are not retroactively applied to results, but previous results using the same methodology can be interpreted in the context of the new reference range. BUN 13 6 - 20 mg/dL 02/13/2025 7:20 PM [facility] CREATININE 0.67(L) 0.70 - 1.20 mg/dL 02/13/2025 7:20 PM [facility] BUN/CREAT RATIO 19 10 - 20 7:20 PM [facility] eGFR >90 >90 mL/min/1. 73m2 02/13/2025 7:20 PM [facility] Comment:As of 2021, eG FR is calculated by the CKD-EPI creatinine equation without race adjustment. eGFR can be influenced by muscle mass, exercise, and diet. The reported eGFR is an estimation only and is only applicable if the renal function is stable. Blood BLOOD SPECIMEN / Unknown [facility] / Unknown 02/13/2025 3:30 PM CDT 02/13/2025 3:30 PM CDT us Tiana Huntert DO CHEMISTRY Final Resul t [facility] [address] [place] [address] * (ABNORMAL) CBC W PLT NO DIFF [44637.1] (01/30/2025 2:20 PM CDT) Only the most recent of2 resultswithin the time period is included. WHITE BLOOD CELL COUNT 4.5 3.8 - 10.8 Thousand/ uL 01/31/2025 7:26 AM CDT [facility] RED BLOOD CELL COUNT 3.90(L) 4.20 [...] MD HEMATOLOGY Final Re sult [facility] [address] [address] [place] [address], * CREATININE [61631.2] (01/30/2025 2:20 PM CDT) Only the most [...] CHEMISTRY Final Re sult Performing Organization Address [facility]/ZIP Co de Phone Number [facility] [facility] [address] [place] [address], * (ABNORMAL) PROTIME-INR [06947.0] - Standing Order (01/30/2025 2:20 PM CDT) Only the most recent of4 resultswithin the time period is included. INR 3.5(H) <1.3 01/30/2025 10:38 PM CDT [facility] PROTIME 41.0(H) 10.6 - 12.4 sec 01/30/2025 10:38 PM CDT [facility] Blood BLOOD SPECIMEN / Unknown [facility] / Unknown 01/30/2025 2:20 PM CDT 01/30/2025 2:25 PM CDT [facility] - 01/30/2025 10:38 PM CDT Therapeutic [...] Truong Carpio MD HEMATOLOGY Final Re sult [facility] [address] [place] [address], [place] * LIPID PANEL W REFLEX MEASURED LDL [...] factors. LDL-C is now calculated using the Julio calculation, which is a validated novel method providing better accuracy than the Friedewald equation in the estimation of LDL-C. William SS et al. ABBIE. 2013;310(19): 7096-4337 (http://education.[employer]/faq/SDC522) CHOL/HDLC RATIO 3.5 <5.0 (calc) [facility] NON HDL CHOLESTEROL 106 <130 mg/dL (calc) [facility] Comment: For patients with diabetes plus 1 major ASCVD risk factor, treating to a non-HDL-C goal of <100 mg/dL (LDL-C of <70 mg/dL) is considered a therapeutic option. Blood BLOOD SPECIMEN / Unknown 09/27/2024 10:34 AM CDT 09/27/2024 10:36 AM CDT Narrative [facility] - 09/28/2024 5:24 AM CDT FASTING:NO FASTING: NO us Truong Carpio MD CHEMISTRY Final Re sult [email or web address] [address] [place] [address], [facility] [address] [place] [address] * SDNA-FIT EXTERNAL (COLOGUARD) (06/25/2022 7:30 AM COMMUNITY SERVICE WORKER) NONINV COLON CA DNA+OCC BLD SCRN STL-IMP Negative Negative 06/30/2022 7:11 PM [facility] [employer] (CLIA #:[id number]) Comment: NEGATIVE TEST RESULT. A negative Cologuard [...] Geller et al, N Engl J Med 2014;370(14):6805-0015) The normal value (reference range) for this assay is negative. COLOGUARD RE-SCREENING RECOMMENDATION: Periodic colorectal cancer screening is an important part of preventive healthcare for asymptomatic individuals at average risk for colorectal cancer. Following a negative Cologuard result, the [employer] and U.S. Multi-Society Task Force screening guidelines recommend a Cologuard re-screening interval of 3 years. References: [place] [employer] Guideline for Colorectal Cancer Screening: https://www.cancer.org/cancer/efqcs-iyiltb-tvleah/jiuxbrico-dfiezunvu-bceviev/ac s-rec ommendations.html.; Beltran DK, Jessica CR, Nesha CortesK, Colorectal Cancer Screening: Recommendations for Physicians and Patients from the U.S. Multi-Society Task Force on Colorectal Cancer Screening , Am J Gastroenterology 2017; 112:3548-2671. TEST DESCRIPTION: Composite algorithmic analysis of stool [...] (Rosario Basurto al, N Engl J Med 2014;370(14):9455-1626.) Cologuard may produce a false negative or false positive result (no colorectal cancer or precancerous polyp present at colonoscopy follow up). A negative Cologuard test result does not guarantee the absence of CRC or advanced adenoma (pre-cancer). The current Cologuard screening interval is every 3 years. ([employer] Society and U.S. Multi-Society Task Force). Cologuard performance data in a 10,000 patient pivotal study using colonoscopy as the reference method can be accessed at the following location: www.[employer]/results. Additional description of the Cologuard test process, warnings and precautions can be found at www.Fora[employer]Pogoplu[employer]d.com. Stool specimen (specimen) (Rectum) 06/25/2022 7:30 AM COMMUNITY SERVICE WORKER 06/26/2022 2:04 PM COMMUNITY SERVICE WORKER Trang Escamilla DO URINE Final Resul t [employer] (CLIA #:[id number]) [place] [address], * PATIENT SOURCE RAPID HIV (07/03/2012 2:24 PM COMMUNITY SERVICE WORKER) SOURCE RAPID HIV SCREEN Non-react alex (Nonreact alex) [facility] Blood specimen (specimen) BLOOD SPECIMEN / Unknown 07/03/2012 2:24 PM COMMUNITY SERVICE WORKER 07/03/2012 2:19 PM COMMUNITY SERVICE WORKER Trang Escamilla DO SEND OUTS Final Resul t [facility] INTERNAL ZIP [address] [place] [id number] * PATIENT SOURCE ANTI HCV (07/03/2012 2:24 PM COMMUNITY SERVICE WORKER) SOURCE ANTI HCV Non-react alex [facility] Blood specimen (specimen) BLOOD SPECIMEN / Unknown 07/03/2012 2:24 PM COMMUNITY SERVICE WORKER 07/03/2012 2:19 PM COMMUNITY SERVICE WORKER Trang Escamilla DO SEND OUTS Final Resul t Performing Organization Address [facility]/ZIP Co de Phone Number [facility] INTERNAL ZIP [address] [place] [phone] from Last 3 Months or Most Recently Relevant to Health Maintenance Additional Health Concerns Infection Onset Date Last Indicated MDRO Clearance Comment:Hx MDRO 201203/18/2024 03/18/2024 Insurance MEDICARE PART A HB ONLY [facility] [employer] Advance Directives Documents on File Type Date Recorded 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 POLST 10/10/2023 Healthcare Directive 11/22/2017 10:42 AM I NCOMPLETE POLST 10/18/2017 11:33 AM 10/18/2023 POLST 07/25/2013 10:41 AM Healthcare Directive 06/25/2013 10:46 AM H ealthcare Directive & POA * Full Code (Latest Code Status on File) Date Activated Date Inactivated Comments 03/08/2025 5:53 AM 03/08/2025 1:47 PM Question Answer Comments Code Status Discussion: Not Discussed * Full Code Date Activated Date Inactivated Comments 02/14/2025 8:53 [...] Comments 12/21/2018 1:47 PM 12/22/2018 1:13 PM Care Teams [employer] Registrar Relationship Specialty Start Date End Date Votel, Truong Tom MD [address] [place] [address] PCP - General Family Practice 10/25/23 Henry Mckeon MD Consulting Physician Radiology - Diagnostic 05/16/13 Other-None . Space Officer Registered Nurse 06/07/13 Jose Flower MD . Consulting Physician Surgery - General 07/25/13 Emmanuel Foy MD . Hematology and Oncology 10/11/13 [place] [address] [place] [address] Ophthalmology Social Research Assistant 10/07/16 Dg Del Castillo MD [address] [facility] [address] [place] [address] Rheumatology 05/31/23
== END 2025-03-12 10:14 | disposition home or self-care (01) ==
LOC: NPINS 10:13
PROVIDERS: PCP Family Medicine; Visit Provider Family Medicine
DX: I48.20 Chronic atrial fibrillation, unspecified (principal)
CPT/HCPCS: 85610

== ENCOUNTER 2025-05-21 10:32 | Outpatient (REF) | payer MEDICARE, SELFPAY ==
[2025-05-21 11:55] LABS: INR 2.32 (0.91-1.10); Prothrombin Time 26.6 Seconds
--- OUTSIDE RECORDS SUMMARY | 2025-05-22 00:43 | XMS_ITS | Data Portability ---
Author Organization [place] - [place] [facility] Address [address] [place] [address] Care Team Providers Care Animal Laboratory Technician Name Role Phone VOTELTRUONG Primary Care Provider Assessment Encounter Date Assessment Date Assessment LastModified by Organization Details LastModified Time 11/07/2024 11/07/2024 59 yo M with OAB and FI, hx hydrocephalus, additionally on warfarin Plan: Discontinue oxybutynin 5mg IR Start oxybutynin 10mg XR SNS brochure provided- will schedule Stage I IS - message sent to service car driver Will need to bridge warfarin prior to procedure- pt has done this before in coordination with his warfarin qizzwngpahzikdmvvvxj0Knd fiocjowzq94/28/2025 10:09:[age]-year-old male with refractory OAB and fecal incontinence with status post stage I InterStim with greater than 50% improvement of his voiding symptoms. Plan: - We will proceed with stage II InterStim lead and battery (Feb 28) - All questions answered - Pt will need to hold warfarin 5 days prior again per his protocol (bridge with lovenox) telephone visit time 10 minutes.jdehqqyvkk1Ovo nlzvsamzx25/12/2025 11:08:9 -year-old male with refractory OAB and fecal incontinence with status post stage I&II InterStim with major improvement with his FI but less improvement with his urinary incontinence Plan: - Pt would like to keep his current program as is due the improvement in his bowels. - Increase oxybutynin dose from 10mg to 15mg PO daily - 90# 3 refills, reviewed interaction with gabapentin and recommended monitoring for increased sedation, if too sedating, we would lower the doseagain - RTC in 6 months or sooner as povezudjxpdlnybl2Ngb yudguuaaf43/24/2025 10:29:21 Plan of Treatment Reminders Order DateSubmit DateProviderLast Modified ByOrganization DetailsLast Modified TimeDetailsAppointmentsESTABLISHED 10:50NITISH NEWBY MDNot availableNot availableNot availableLabNone recorded.ReferralNone recorded. ProceduresNone recorded.SurgeriesNone recorded.ImagingNone recorded.Medication Ordersoxybutynin chloride ER 15 mg tablet,extended release 24 hr04/05/2025 04/05/[address], [address], 20 11:43:40oxybutynin chloride ER 10 mg tablet,extended release [address], [address], 89 10:49:28 Patient TargetsNo targets recorded. Patient Instructions Encounter Date Encounter Id Patient Instructions Last Modified By Organization Details Last Modified Time 11/07/2024 [id number] Sacral Neuromodulation (SNM): Benefits: SNM involves the [...] due to technical issues or inadequate response. aqrzqendix7Dxw ansaadjcs46/28/2025 10:06:57 Reason for Referral None Reported. Problems Name Problem SNOMED Code Status Onset Date Resolution Date Notes Provider Name and Address Organization Details Recorded Time Overactive urinary bladder 814260320 Active NANDA NEWBY MD [address], [place], [address], [facility]11/07/2024 09:57:38Complete fecal incontinence [id number]/28/2025NANDA NEWBY MD [address] [place] [address],[address], [place], [address] [place] [address], [facility]11/07/2024 10:05:24Incontinence of bmgkh68911951Gmvewn 02/22/2025NANDA NEWBY MD [address] [place] [address],[address], [place], [address] [place] [address], [facility]02/22/2025 11:03:00 Problem Notes None recorded. Procedures Surgical History Date Name Laterality Status Provider Name and Address Organization Details Recorded Time 11/07/2024 [facility] 09:30[facility]25[facility] 16:12:55excision of lumbar intervertebral disccompletedAva [facility]11/01/2024 16:13:13amputation of left lower limbcompletedAva [facility]11/01/2024 16:13:27 Imaging Results None recorded. Procedure Notes None recorded. Medical Equipment None Reported. Allergies Allergen ID Allergen Name Allergen Category Reaction Reaction Severity Criticality Documentation Date Start Date Code Code System Note Provider Name and Address Organization Details Recorded Time 123637 aspirin medication Not available Not available Not nojttponf58/12/97994606PfXwivJkm Utter null, [facility]02/22/2025 10:48:51375471oahneixzcquvgkmpvlxxKhi available Not available Not yzfdvoviq72/12/[id number] Utter null, [facility]02/22/2025 10:48:01513430mhwikcrcvsmooitwfipvdyGps available Not available low501//[id number] Utter null, [facility]02/22/2025 10:48:10 Medications Name Sig Start Date Stop Date Status Note LastModified by Organization Details LastModified Time losartan 50 mg tablet TAKE 1 TABLET (50 MG) BY M OUTH ONCE DAILY. activeNot AvailableNot AvailableNot Availableatorvastatin 40 mg tabletTAKE 1 TABLET BY MOUTH AT BEDTIME.activeNot AvailableNot AvailableNot Available oxybutynin chloride ER 15 mg tablet,extended release 24 hrTAKE 1 TABLET BY MOUTH EVERY DAYactiveNot AvailableNot AvailableNot Availableoxybutynin chloride ER 10 mg tablet,extended release 24 hrTAKE ONE TABLET BY MOUTH EVERY DAY FOR 360 DAYS activeNot AvailableNot AvailableNot AvailableAccu-Chek Softclix LancetsAS DIRECTED. TEST 2 TIMES PER DAY.activeNot AvailableNot AvailableNot Available azathioprine 50 mg tabletTAKE TWO TABLETS (100MG) BY MOUTH ONCE DAILY IN THE MORNINGactiveNot AvailableNot AvailableNot Availableclopidogrel 75 mg tabletTAKE 1 TABLET (75 MG) BY MOUTH ONCE DAILY.activeNot AvailableNot AvailableNot Availablezinc oxide 20 % topical ointmentAPPLY TOPICALLY TO AFFECTED AREA(S) USE 2 OR 3 TIMES PER DAY FOR MOISTURE BARRIERactiveNot AvailableNot AvailableNot Availablefamotidine 20 mg tabletTAKE 1 TABLET (20 MG) BY MOUTH AT BEDTIME.active Not AvailableNot AvailableNot Availablemetformin 1,000 mg tabletTAKE 1 TABLET (1,000 MG) BY MOUTH TWO TIMES DAILY WITH MEALS.activeNot AvailableNot Available Not Availablewarfarin 5 mg tabletTAKE 1/2 TABLET BY MOUTH EVERY TUESDAY AND TUESDAY; TAKE 1 TABLET REST OF THE DAYS OF THE WEEK IN THE EVENING OR DIRECTED.activeNot AvailableNot AvailableNot Availableoxybutynin chloride ER 5 mg tablet,extended release 24 hrTAKE 1 TABLET (5 MG) BY MOUTH ONCE DAILY. 5completedNot AvailableNot AvailableNot Availablegabapentin 300 mg capsuleTAKE 2 CAPSULE BY MOUTH TWICE A DAY, AND TAKE 3 CAPSULE BY MOUTH EVERY NIGHT AT BEDTIMEactiveNot AvailableNot AvailableNot Availableomeprazole 20 mg capsule,delayed releaseTAKE 1 CAPSULE (20 MG) BY MOUTH ONCE DAILY BEFORE A MEAL. activeNot AvailableNot AvailableNot Availablehydrochlorothiazide 25 mg tablet TAKE 1 TABLET (25 MG) BY MOUTH ONCE DAILY.activeNot AvailableNot AvailableNot Availablehydroxychloroquine 200 mg tabletTAKE 1 TABLET (200 MG) BY MOUTH ONCE DAILY.activeNot AvailableNot AvailableNot Availablelosartan 100 mg tabletTAKE 1 TABLET (100 MG) BY MOUTH ONCE DAILY. MED DOSE ADJUSTMENTactiveNot AvailableNot AvailableNot Availableenoxaparin 80 mg/0.8 mL subcutaneous syringeINJECT 80 MG SUBCUTANEOUS EVERY 12 HOURS.activeNot AvailableNot AvailableNot Availableaspirin activeNot AvailableNot AvailableNot Availablefenofibrate nanocrystallized 145 mg tabletTAKE 1 TABLET (145 MG) BY MOUTH ONCE DAILY WITH A MEAL.activeNot Available Not AvailableNot AvailableAccu-Chek Guide test stripsTEST 2 TIMES PER DAY.active Not AvailableNot AvailableNot Availableomega-3 300 mg-dha 120 mg-epa 180 mg-fish oil 1,000 mg capsuleTAKE TAKE ONE CAPSULE BY MOUTH TWO TIMES DAILY.activeNot AvailableNot AvailableNot AvailablePaxlovid 300 mg (150 mg x 2)-100 mg tablets in a dose packTAKE 2 NIRMATRELVIR 150 MG PINK-OVAL TABLETS AND 1 RITONAVIR 100 MG WHITE-OVAL TABLET TOGETHER TWICE DAILY FOR 5 DAYS. DATE OF SYMPTOM ONSET: 11/07/2024ompletedNot AvailableNot AvailableNot AvailableFreeStyle Eve 3 Sensor deviceTO BE USED TO READ BLOOD SUGARS, FOLLOW BANKRUPTCY LAW SPECIALIST DIRECTIONS. activeNot AvailableNot AvailableNot Available Vitals Date Recorded Body height Body mass index (BMI) Body weight Provider Name and Address Organization Details Last Updated DateTime 02/22/2025 165.1 cm 31.6 kg/m2 41281.55 g [facility] 02/22/2025 10:47:46 Date Recorded Body height Body mass index (BMI) Body weight Provider Name and Address Organization Details Last Updated DateTime 04/05/2025 165.1 cm 31.6 kg/m2 49457.55 g Silvia Gamez [facility] 04/05/2025 10:10:01 Social History Question Answer Notes LastModified by Organization D etails LastModified Time Tobacco Smoking Status Never Smoker Gertrude riley [facility] Ffzeeho5711/07/2024 09:30:39What Is Your Level Of Caffeine Consumption?Cecwhgcqgyfegnm31Csvfildgooo not yxivfgpsn55/28/2025What Was The Date Of Your Most Recent Tobacco Screening?02/22/20256674lzxwqv1Eqvwnkgjurt not bvmxipuoc37/12/2025Has Tobacco Cessation Counseling Been Provided?Hhfzgcsgb83 Information not dywnwzjpt96/28/2025 Sex: Unknown Functional Status Question Answer Note LastModified by Organization D etails LastModified Time Do you use any illicit or recreational drugs? No wmyixcj96Hgubrsiimoo not kolhnqbyb71/28/2025Do you or have you ever used any other forms of tobacco or nicotine?Tvgmrrnej21Mrxollmbdvi not available 11/07/2024What is your level of alcohol consumption?Ywuieyjxeid44Zjoaogmtszw not pjpgafagq83/28/2025 Mental Status None recorded. Family History Nothing Reported. Medical History Condition Response Diabetes Y Sexually Transmitted Infection N Other N Bleeding Disorder N High Blood Pressure N Kidney Stones N Cancer N Lung Disease N Depression N High Cholesterol Y GERD/Acid Reflux Y Heart Disease N Immunizations Vaccine Type Date Status Note Provider Nam e and Address Organization Details Recorded Time Influenza, split virus, trivalent, preservative 2009 completed Not IuewkzoqiRxvblaZlubvy98/24/2025 10:02:35Influenza, split virus, trivalent, kbwuoawkqkqt46/12/2011completedNot LjuyunzltMvpejbSldxzc74/24/2025 10:02:35Tdap 10/28/2011completedNot GrsrwrnuuChtsblTrafgw66/24/2025 10:02:35pneumococcal polysaccharide ILG802010/28/2011completedNot JqhhzsnbhFhvcaqVjcjrw98/24/2025 10:02:35Influenza, split virus, trivalent, peobxffltajx34/18/2012completedNot GjsjybdhuCjdbciYhiscx50/24/2025 10:02:35Hep B, adult10/16/2012completedNot MedeyqxpgYzcdesCqjpkv69/24/2025 10:02:35Hep B, adult01/17/2013completedNot VsuqqztadTfjiwbMmpxpf83/24/2025 10:02:35Influenza, split virus, trivalent, homoqccsejgg37/16/2013completedNot WjzspiteoRqpimjYizjhh32/24/2025 10:02:35 Pneumococcal conjugate PCV 13010/31/2013completedNot [facility]/05/2025 10:02:35HPV, cwqhijirjhct92/21/2014completedNot Available[facility] 04/05/2025 10:02:35Influenza, split virus, quadrivalent, PF02/28/2014completed Not BuhgqdlhsMbbuojLpjctj48/24/2025 10:02:35Influenza, split virus, quadrivalent, PF02/19/2015completedNot JmqxvsznjAjecmvExsqmm58/24/2025 10:02:35 Influenza, split virus, quadrivalent, PF03/24/2016completedNot Available VhrxwhGipbdr89/24/2025 10:02:35Influenza, split virus, quadrivalent, PF 03/17/2017completedNot XpnsededgSjgdehDsvjmg07/24/2025 10:02:35Influenza, split virus, quadrivalent, PF02/23/2018completedNot AtpofbqaeYrrblyIuoiaz94/24/2025 10:02:35zoster phifbynxqhw80/14/2018completedNot CsdvdwdjcYwbrcyFmypkm36/24/2025 10:02:35zoster uqfxsxcshtq92/05/2018completedNot FfeqzbxzqClyacdQplvkx72/24/2025 10:02:35Hep B, adult04/19/2013completedNot FlryhujirLxdxibNhpuju89/24/2025 10:02:35Influenza, split virus, quadrivalent, dpaeucdbteey46/19/2019completedNot KpelrtnfrGvrlpaSizotw30/24/2025 10:02:35Influenza, split virus, quadrivalent, PF 02/14/2020completedNot WzvlumxhgBcptkrEcrfwi89/24/2025 10:02:35COVID-19, mRNA, LNP-S, PF, 100 mcg/0.5mL dose or 50 mcg/0.25mL dose07/09/2020ompletedNot TrtvvjgqiXzskdfFxnfuy69/24/2025 10:02:35COVID-19, mRNA, LNP-S, PF, 100 mcg/0.5mL dose or 50 mcg/0.25mL dose08/06/2020ompletedNot NtqaguqjwTrqgxcPvhypp83/24/2025 10:02:35Influenza, split virus, quadrivalent, PF04/02/2021ompletedNot Available TulbkbXzkvjq41/24/2025 10:02:35COVID-19, mRNA, LNP-S, PF, 100 mcg/0.5mL dose or 50 mcg/0.25mL dose10/21/2021completedNot MizitnucbDarrigVfrljv09/24/2025 10:02:35COVID-19, mRNA, LNP-S, PF, 100 mcg/0.5mL dose or 50 mcg/0.25mL dose 09/18/2021ompletedNot RyihilwamTkuwejJmwzqw11/24/2025 10:02:35Influenza, split virus, quadrivalent, PF02/22/2022ompletedNot NodwkgdfcQgrjmfNitltn25/24/2025 10:02:35COVID-19, mRNA, LNP-S, bivalent, PF, 50 mcg/0.5 mL or 25mcg/0.25 mL dose 05/28/2022ompletedNot IkeinuqegOlqrsrCsbsgi45/24/2025 10:02:05Lpto0301/14/2022 completedNot JrhmzmbiyKcahuuQciirq77/24/2025 10:02:35COVID-19, mRNA, LNP-S, PF, 50 mcg/0.5 mL03/28/2023ompletedNot LosooealkGcmorlQdowvr10/24/2025 10:02:35 Influenza, split virus, quadrivalent, PF04/05/2023ompletedNot Available TgngulWakzis15/24/2025 10:02:35COVID-19, mRNA, LNP-S, PF, 50 mcg/0.5 mL 09/28/2023ompletedNot CzxojegpfYriidsRflknh25/24/2025 10:02:35Influenza, split virus, trivalent, PF04/25/2024ompletedNot GzbvijpneVmmsclHwgjmb18/24/2025 10:02:35COVID-19, mRNA, LNP-S, PF, 50 mcg/0.5 mL04/25/2024ompletedNot Available KstsqeTgmppk48/24/2025 10:02:35Influenza, split virus, trivalent, PF03/28/2025 completedNot MkzkkfoluJesxvfBxfjbs08/24/2025 10:02:35 Past Encounters Encounter ID Performer Location Encounter Start Date Encounter Closed Date Diagnosis/Indication Diagnosis SNOMED-CT Code Diagnosis ICD10 Code Diagnosis IMO Codes Diagnosis Note [id number] MD MARLA FRANCES_Alanna [address] [place] [address] 11/07/2024 09:07:29 11/08/2024 09:26:50 Overactive urinary bladder 979485553 N32.81 [id number] Complete fecal repdbhwfrdbx9028151834125478W12.9 [id number] FRANCES [address] [place] [address] 02/22/2025 10:45:30002/28/2025 08:41:22Overactive urinary lrypjgr795209083M65.81 0448119 Incontinence of ibsnq98243377T87.9 [id number] FRANCES_Alanna [address] [place] [address] 04/05/2025 10:01: 13:54:09Overactive urinary qseqzas311142155S66.81 8871070 Incontinence of voztq14626709G78.9 38903069 Health Concerns Section Related Observation LastModified by Organization Detai ls LastModified Time None Recorded Concern Status LastModified by Organization Details LastModified Time None Recorded Advance Directives Directive None Recorded Payers Insurance Date Sequence Insurance Name Policy Number Policy Red[place] Covered Member ID Red[place] Member ID Guarantor Name 04/10/2025 1 [facility] (MEDICARE REPLACEMENT/ADVANTAGE - PPO) [id number] Christiano Johns [id number] Christiano JohnsUNITED HEALTHCARE - MEDICATimothy R [id number] Christiano [id number] [place]: [facility] SERVICES INCChristiano [id number] R Nerud Notes Date Note Type Note Provider Name and Address Orga nization Details Recorded Time 11/07/2024 text/html 59yo male referred by Truong Carpio MD for urinary incontinence and fecal incontinence Records:Saw his pcp on 10/10/24 and noted he has urinary incontinence ongoing for 5 years. He does feel needto void but thinks he may leak at times as well. He wears disposable undergarments. He changes twice daily, recently advised to four times daily but requires staff from assisted living to help with this. stopped his diuretic. MHx : Hydrocephalus, MRSA, PAD, HTN, Diabetes, Left lower limb amputation due to toe infection, Lupus anticoagulant on WarfarinNonsmokerHas DIRECTOR HEALTH shunt, has it checked every 2 years [...] UTIs PVR 30cc NANDA NEWBY MD [address], [place], [address], [facility] [place] Wbnmike0111/07/2024 10:09:35002/22/2025text/html 59yo male presents for reevaluation of urinary [...] -->1.7 (Degree of urgency 4--> 2.7 (decrease 32%) Leaks 10 -->3.9 (decrease 61%)Ave leak amount 3-->2.1 (decrease 30%)Protection amount (6-->3.7) decrease of 38% Bowel diary:Degree of urgency 4-->3.3Accidents 2-->2.5 Current patient location:Yoel SCALES/LUZ location:[employer] compliant platform used:yesPrior to conducting our telephone visit, the patient was apprised of the risks, benefits and alternatives to telephone visits including but not limited to poor audio quality, interrupted visits due to technological limitations, delays in medical evaluation and treatment due to deficiencies or failures of equipment, failure of security protocols resulting in a breach of privacy of personal medicalinformation and a lack of access to complete [...] ongoing for 5 years. He does feel needto void but thinks he may leak at times as well. He wears disposable undergarments. He changes twice daily, recently advised to four times daily but requires staff from assisted living to help with this. stopped his diuretic. MHx : Hydrocephalus, MRSA, PAD, HTN, Diabetes, Left lower limb amputation due to toe infection, Lupus anticoagulant on WarfarinNonsmokerHas DIRECTOR HEALTH shunt, has it checked every 2 years [...] monthsNo UTIs PVR 30cc NANDA NEWBY MD [address] [place] [address],[address], [place], [address], [facility] Gvmmhqj6402/22/2025 11:08:text/html 60yo male presents for reevaluation of urinary incontinence and fecal incontinence 04/05/25: Pt here for post op visit s/p InterStim Stage I&II Symptoms:Doing very well. Happy with result. Has more control over his bowels. No longer having blow outs.Notes less improvement with incontinence. Still leaking.Feels sensation in the saddle region.Cannot always tell when he needs to urinate. Just can tell when his depends is wet. Current meds: oxybutynin 10mg 9/12/25: Phone visit today for symptom check. Pt [...] 51%)Voids awake 10-->3.7 (decrease 63%)Voids asleep 1 -->1.7Degree of urgency 4--> 2.7 (decrease 32%) Leaks 10 -->3.9 (decrease 61%)Ave leak amount 3-->2.1 (decrease 30%)Protection amount (6-->3.7) decrease of 38% Bowel diary:Degree of urgency 4-->3.3Accidents 2-->2.5 Records:Saw his pcp on 10/10/24 and noted he has urinary incontinence ongoing for 5 years. He does feel needto void but thinks he may leak at times as well. He wears disposable undergarments. He changes twice daily, recently advised to four times daily but requires staff from assisted living to help with this. stopped his diuretic. MHx : Hydrocephalus, MRSA, PAD, HTN, Diabetes, Left lower limb amputation due to toe infection, Lupus anticoagulant on WarfarinNonsmokerHas DIRECTOR HEALTH shunt, has it checked every 2 years [...] UTIs PVR 30cc NANDA NEWBY MD [address] [place], [address], [facility] [place] Ocixdvf56/24/2025 10:29:27
--- OUTSIDE RECORDS SUMMARY | 2025-05-22 00:43 | XMS_ITS | Patient Health Record ---
Author Organization [facility] Address [address] [place] [address] [address] [place] [address] Care Team Providers Care Film Sound Coordinator Name Role Phone Trang Escamilla Primary Care Provider Surya Jimenez Unavailable [phone] Alie SCALES, [facility] Unavailable Unavailable Allergies No Known Allergies Reason For Referral No Information Medications Medication SIG (Take, Route, Frequency, Duration) Notes Start Date End Date Status Gabapentin 300 MG Capsule 2 capsules Orally Thre e times a day ActiveLisinoprilActiveWarfarin SodiumActiveAspirinActive Social History Tobacco Use: Social History Observation Description Date Details (start date - stop date) Never Smoker NA - NA Social History Drugs/Alcohol:Social InfoQuestionAnswerNotesAlcohol ScreenDid you have a drink containing alcohol in the past year?JvIpdgqi8JpqojgetkkvvsxQduwbwsaYgexhxb Use: Social InfoQuestionAnswerNotesTobacco Use/Smoking:Are you anonsmokerAdditional DetailsCategorySocial InfoOptionsDetailsMiscellaneous:Marital status: Problems Problem Type SNOMED Code ICD Code Onset Dates Problem Status W/U Status Risk Notes Problem Chronic pain (64424733) Other chronic anthony n (G89.29) ActiveconfirmedProblemLumbar radiculopathy (466768482)Radiculopathy, lumbar region (M54.16)Activeconfirmed Plan Of Treatment No Information Insurance Providers Payer Name Payer Address Payer Phone Subscriber Number Group Number Insured Name Patient Relationship to Insured Coverage Start Date Coverage End Date Medicare Part B [employer] [address] [place] [address] [id number] Crescencio Johns - patient is the insured Medical (General) History Medical History History ICD Code Acid reflux DiabetesHigh cholesterolHydrocephalusSurgical History Surgery Date(Month/Year) Hydrocephalic shunt replacement 2015 Left below the knee amputation
--- OUTSIDE RECORDS SUMMARY | 2025-05-22 00:44 | XMS_ITS | Clinical Summary ---
Author Organization [facility] Address [address] [place] [address] Care Team Providers Care Business Analytics Manager Name Role Phone Henry Mckeon MD Unavailable [phone] Other-None Unavailable Unavailable Jose Flower MD Unavailable [phone] Emmanuel Foy MD Unavailable Unavailable Christiano Jerome OD Unavailable [phone] Dg Del Castillo MD Unavailable [phone] Truong Carpio MD Primary Care Provider + Allergies Active AllergyReactionsCriticalityNoted DateCommentsBee Sting XwwDmlfd98/25/2025 NcpunrkknuIirmdeyrwuWqkgxd78/16/2012 Medications MedicationSigDispense QuantityRefillsLast FilledStart DateEnd DateStatus Calcium carbonate (OYSTERSHELL CALCIUM) 500 mg tablet Take 500 mg by mouth 2 times daily with meals.Active NATURAL GUN FITTER MULTIVITAMIN ORAL Take 1 tablet by mouth once daily in the evening.Active cholecalciferol (VITAMIN D) 1,000 unit capsule Take 1 capsule by mouth once daily.ctive glucose 4 g chewable tablet Take 4 g by mouth each time if needed for Blood Gluc < 60 g/dL.Active cyanocobalamin (VITAMIN B-12) 1,000 mcg tablet Take 1,000 mcg by mouth once daily.Active acetaminophen (TYLENOL EXTRA STRENGTH) 500 mg tablet Take 500 mg by mouth 4 times daily if needed. 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 2 Each 2Active gabapentin (NEURONTIN) 300 mg capsule Indications:Diabetic peripheral neuropathy (HC)Take 2-3 Capsules (600-900 mg) by mouth three times daily. Take 2 capsules in the morning, 2 capsule in the afternoon, and 3 capsules at bedtime 630 Capsule ctive famotidine (PEPCID) 20 mg tablet Indications:Gastroesophageal reflux disease without esophagitisTake 1 Tablet (20 mg) by mouth at bedtime. 90 Tablet ctive fenofibrate nanocrystallized (TRICOR) 145 mg tablet Indications:DyslipidemiaTake 1 Tablet (145 mg) by mouth once daily with a meal. 90 Tablet ctive metFORMIN (GLUCOPHAGE) 1,000 mg tablet Indications:Type 2 diabetes mellitus with diabetic neuropathy, without long-term current use of insulin (HC)Take 1 Tablet (1,000 mg) by mouth two times daily with meals. 180 Tablet ctive warfarin (COUMADIN) 7.5 mg tablet Indications:Anti-phospholipid syndrome (HC),Pulmonary embolism on left (HC), Anticoagulation monitoring, INR range 2-3Has on hand but not currently using. 5Active Ykbdh-1-EEW-EPA-Fish Oil 1,000 (120-180) mg cap Indications:DyslipidemiaTake by mouth two times daily. 180 Capsule 5Active calcium carbonate (CALTRATE) 600 mg calcium (1,500 mg) tablet Indications:Takes dietary supplementsTake 1 Tablet (600 mg) by mouth two times daily with meals. 180 Tablet 302/10/2025Active multivitamin (MVI) tablet Indications:Takes dietary supplementsTake 1 Tablet by mouth once daily. 90 Tablet 5Active omeprazole (PRILOSEC) 20 mg Delayed-Release capsule Indications:Gastroesophageal reflux disease without esophagitisTake 1 Capsule (20 mg) by mouth once daily before a meal. 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 Length of need: lifetime- dispense 1 four wheel walker with 4 wheels, handgrips and brake. Include seat and basket for personal items. 1 Each 5Active blood-glucose meter Indications:Type 2 diabetes mellitus with diabetic neuropathy, without long-term current use of insulin (HC)by Not Applicable route. Dispense meter covered by pts insurance. 1 Each 5Active blood sugar diagnostic (Blood Glucose Test) strip Indications:Type 2 diabetes mellitus with diabetic neuropathy, without long-term current use of insulin (HC)Test 2 times per day. 100 Each 5Active lancets Indications:Type 2 diabetes mellitus with diabetic neuropathy, without long-term current use of insulin (HC)As directed. Test 2 times per day. 100 Each 5Active oxybutynin XL 10 mg CR tablet Indications:Overactive bladderTake 1 Tablet (10 mg) by mouth once daily. 5Active atorvastatin 40 mg tablet Indications:Dyslipidemia,PAD (peripheral artery disease)TAKE 1 TABLET BY MOUTH AT BEDTIME. 90 Tablet 5Active clopidogreL 75 mg tablet Indications:PAD (peripheral artery disease)TAKE 1 TABLET (75 MG) BY MOUTH ONCE DAILY. 90 Tablet 5Active hydroxychloroquine (PLAQUENIL) 200 mg tablet Indications:Systemic lupus erythematosus, unspecified SLE type, unspecified organ involvement status (HC)TAKE 1 TABLET (200 MG) BY MOUTH ONCE DAILY. 90 Tablet 5Active azaTHIOprine (IMURAN) 50 mg tablet Indications:Systemic lupus erythematosus, unspecified SLE type, unspecified organ involvement status (HC)TAKE TWO TABLETS (100MG) BY MOUTH ONCE DAILY IN THE MORNING 180 Tablet 5Active losartan (COZAAR) 100 mg tablet Indications:HTN (hypertension)Take 1 Tablet (100 mg) by mouth once daily. Med dose adjustment 90 Tablet 3105Active zinc oxide 20 % pste Indications:Skin problemApply topically to affected area(s). 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 Recheck INR on 06/21/25. 30 Tablet 5Active warfarin (COUMADIN) 5 mg tablet Indications:Anti-phospholipid syndrome (HC),Anticoagulation monitoring, INR range 2-3,Pulmonary embolism of left lung (HC),Acute deep vein thrombosis (DVT) of popliteal vein of right lower extremity (HC),Chronic atrial fibrillation (HC) Take by mouth 2.5 mg (5 mg x 0.5) every Mon, Charito; 5 mg (5 mg x 1) all other days in the evening OR as zavclahx72Discontinued(Reorder (E-cancel not sent)) Active Problems ProblemNoted DateDiagnosed DateAtherosclerosis of [place] arteries of extremities with rest pain, right leg08/09/2024History of DVT (deep vein thrombosis) 09/28/2023 Overview (09/28/2023): Right 07/1011 Congenital gvkqgqjeexikp06/17/2024lantar fasciitis of right foot09/28/2023OSA 07/26/2022 AHI- 703/S/P ventriculoperitoneal shunt03/16/2018 Overview (03/16/2018): 12/28/2013 nonprogrammable 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 Oxycodone 10mg #60 per month. Diagnosis: Below the knee amputation and in physical therapy. Pharmacy [facility]. Trang Escamilla DO .................... 11/14/2013 9:44 PM Anticoagulation monitoring, INR range 2-305GERD (gastroesophageal reflux disease)10/14/20130173Igbwfnziag21/19/2013 Overview (09/12/2014): Chronic leukopenia and anemia from SLE ACP (advance care planning)05/24/2013 Overview (05/24/2013): Patient has identified Health Care [...] NOT identified: ASSUME FULL TREATMENT. Pressure ulcer-right rfcchkr0705/15/2013PAD (peripheral artery disease)05/15/2013 Overview (12/12/2017): 12/06/2017- Right femoral to above-knee popliteal artery bypass using reversed great saphenous vein,left lower extremity saphenous vein harvest. Dr. Zelaya Diabetic peripheral dzxuhrhkcl04/13/2013Mixed conductive and sensorineural hearing loss, iuogzqsyb82/18/2013Myelinated optic nerve fiber layer08/28/2012 Tdzjxvdbgaqd57//nemia, /20/2012 Overview (06/01/2012): EGD 05/2012 reflux Colonoscopy 05/2012 normal Igzkwkwwmlrijcbj06/18/2012 Overview (03/30/2012): Started on Lisinopril 2.5mg daily. Anti-phospholipid flwiytmr33/17/2012 Overview (10/25/2013): Seen Hematology. Coumadin indefinitely. Systemic lupus vlksyexkaooll09/21/2012 Overview (05/17/2012): Positive SIMÓN and anti DNA, lupus anticoagulant, PE and DVT 07/2011 Visual field defect, vpmoaslzdpe65/10/2009 Resolved Problems ProblemNoted DateDiagnosed DateResolved DateChronic atrial fibrillation /08/20234752Optfwfbose37Encephalopathy acute12/27/2013 01/10/2014Issue of repeat hzsafiatuayk65/04/S/P debridement Overview (08/13/2013): Left bka stump 08/13/2012 Gangrenous left foot s/p left BKA/Ischemia of toe05/31/2013 12/27/2013Diabetic foot ulcerVenous dxnkgc7004/18/2012 12/24/2015 Overview (04/18/2012): Right > left. DVT and systemic causes ruled out. Compression stockings recommended. Encounter for long-term (current) use of xvjskmelbmnemx32 Pulmonary jufjafny41DVT of popliteal vein Overview (07/31/2011): Right 07/1011 Acute deep vein thrombosis (DVT) of popliteal vein of right lower extremity Overview (12/19/2014): Right 07/1011 Shortness of cjycpk41 Overview (07/28/2011): D dimer elevated Awwfacfjyuq99bnormal EKG0 Overview (07/28/2011): New t wave inversion II III AVF V4-6 07/28/2011 Abnormal liver Overview (07/28/2011): New elevation of alk phos Dulfpliezvjy90telectasisChest pain, edbfyrqjpgb61 Overview (07/05/2011): Angiogram 07/05/2011 neg for acute Mi 205 stenosis Mid LAD 20% stenosis 1st diagonal EF 60% Pain in joint, lower leg Overview (07/05/2011): Left piraformis muscle pain taking ibufprofen 600 tid for 2 weeks Encounters DateTypeDepartmentCare HmidMtgfwkfrpzq24/09/2025Anticoagulation (warfarin) [facility] [address] [facility] [place] [address] NurseMaria Anticoag Anticoagulation (Assisted living); Refill Request (Warfarin)05/21/2025Telephone [facility] [address] [place] [address] Votel, Truong Tom MD Anticoagulation (/)5Anticoagulation (warfarin) [facility] [address] [place] [address] NurseMaria Anticoag Anticoagulation (Chart update )05/08/2025 11:30 AM CSTOffice Visit [facility] [address] [place] [address] Moy Evans, DPM Consult (Right Dystrophic Nail )05/07/20251871Ifipku90/24/2025Telephone [facility] [address] [place] [address] Truong Carpio MD [facility]05/03/2025Patient Outreach [facility] Care Management - Care Management Navigation/[facility] Planning Media [address] [place] [address] Mary Agustin [facility]-Community Resource Wxjhdcxldv05/19/2025 10:50 AM CSTOffice Visit [facility] [address] [place] [address] Truong Carpio MD Blood Pressure (Needs INR lab today)5Anticoagulation (warfarin) [facility] [address] [place] [address] NurseMaria Anticoag Nrledritlbxipbp35/19/8455Swrqcu33/17/2025Telephone [facility] [address] [place] [address] Truong Carpio MD Results (inr and warfin order )04/22/2025 11:30 AM CSTOffice Visit [facility] [address] [place] [address] Luke Collado MD Follow Up (04/09/25 US )04/22/2025 9:45 AM CSTAncillary Procedure [facility] [address] [place] [address] 04/22/2025Telephone [facility] [address] [place] [address] Luke Collado MD Follow Up04/22/20250887Xttxvj14/03/2025Refill [facility] [address] [place] [address] Truong Carpio MD Refill Request (Zinc Oxide)04/15/20253812Dkakyx05/01/2025nticoagulation (warfarin) [facility] [address] [place] [address] Nurse, [facility] Anticoag Ciccermmtdsyoma59/31/2025 2:15 PM CDTOrders Only [facility] [address] [place] [address] Lab, [place] <No scans attached>04/12/20250904Rwmgsw99/26/8013Advguy71/21/3600Nuifwu56/17/2025 Anticoagulation (warfarin) [facility] [address] [place] [address] Nurse, [facility] Anticoag Pxtqerdjziprbsj92/16/2025 10:00 AM CDTOffice Visit [facility] [address] [place] [address] Truong Carpio MD Diabetes; Hospital F/U (Surgery at [facility] 03/08/25, sacral neurostimulator); Immunization/Zifssfyln16/16/8681Rarejp97/14/2025Telephone [facility] [address] [place] [address] Truong Carpio MD 03/25/2025Refill [facility] [address] [place] [address] Dg Del Castillo MD Refill Request (Azathioprine)03/15/2025 10:30 AM CDTOrders Only [facility] [address] [place] [address] Lab, [place] <No scans attached>03/15/2025Telephone [facility] [address] [place] [address] Truong Carpio MD Anticoagulation (Platelets out of range)03/15/2025nticoagulation (warfarin) [facility] [address] [place] [address] Nurse, Maria Anticoag Kjmzqxpplypnsqv73/03/8544Gpvyeg90/30/2025Orders Only [facility] Scanner 1 scan: (1-Ord) [facility], INR, 5003/12/2025Telephone [facility] [address] [place] [address] Truong Carpio MD Qzxximzzcpliqua80/30/2025nticoagulation (warfarin) [facility] [address] [place] [address] Nurse, Maria Anticoag Anticoagulation (MARGO)03/08/2025 7:46 AM CDTAnesthesia Event [facility] [address] [place] [address] Wyatt Sheriff MD Gruber, Christopher Scott, LAWN CARE WORKER 03/08/2025 7:15 AM CDT - 03/08/2025 8:35 AM CDTSurgery [facility] [address] [place] [address] Lilian Aguilar MD STAGE TWO INTERSTIM BATTERY, IMPLANTABLE PULSE GENERATOR UPSPGHHYZ85/26/2025 5:09 AM CDT - 03/08/2025 11:47 AM CDTHospital Encounter [facility] [address] [place] [address] Lilian Aguilar MD Sacral neurostimulator in situ (Primary Dx) Discharge Disposition: Home Self Care2025nticoagulation (warfarin) [facility] [address] [place] [address] Nurse, Maria Anticoag Anticoagulation (Chart update)2025Telephone [facility] [address] [place] [address] Truong Carpio MD Anticoagulation; Nurse/Clinic Staff Only03/07/20257439Jwajvs99/23/2025Orders Only [facility] Scanner 1 scan: (1-Ord) [facility], INR RESULT, 5003/05/2025 Anticoagulation (warfarin) [facility] [address] [place] [address] Nurse, Maria Anticoag Anticoagulation (Chart update)03/05/2025Telephone [facility] [address] [place] [address] VoTruong malik MD Cumceykcnaneqtr23/23/2025Telephone [facility] [address] [place] [address] Truong Carpio MD 02/27/2025 10:40 AM CDTPhone Office Visit [facility] [address] [facility] [address] [email or web address] [address] [place] [address] Dg Del Castillo MD 02/27/2025Telephone [facility] [address] [place] [address] VoTruong malik MD lvjcjvuxvsfv93/17/2025Telephone [facility] [address] [place] [address] Truong Carpio MD Kcjnytbwazzvvui13/17/9823Uzsdvw40/16/2025Orders Only [facility] Scanner 1 scan: (1-Ord) [facility], PLT , 5002/26/2025Telephone [facility] [address] [place] [address] Truong Carpio MD Anticoagulation (Platelets)02/26/2025Telephone [address] [address] Truong Carpio MD Medication Management (LOVENOX Missed Dose )02/25/2025 3:00 PM CDTOrders Only [address] [address] Lab, [place] Lab02/25/20253260Gfxidi83/15/2025Telephone [facility] [address] [place] [address] Truong Carpio MD Error-please aszazqaxh43/15/2025Refill [address] [address] Truong Carpio MD Refill Request (Enoxaparin)02/20/20252632Drfroj95/10/2025Telephone [facility] [address] [place] [address] Luke Collado MD Follow Up02/20/2025Telephone [facility] [address] [place] [address] Luke Collado MD Follow Upfrom Last 3 Months Immunizations ImmunizationAdministration DatesNext DueCOVID-19 VACCINE SPIKEVAX (MODERNA 50MCG/0.5ML) 12YO+ PFS04/25/2024,09/28/2023,3COVID-19 vaccine (Moderna 100mcg/0.5mL) PF, MDV04/01/2022,04/02/2021,08/06/2020,1COVID-19 vaccine (Moderna 50mcg/0.5mL) 12YO+ BIVALENT PF, MDV107/29/2021Hepatitis B (Adult) 04/19/2013,01/17/2013,10/16/2012Human Papilloma Virus Ejlqdzm2610/31/2013 INFLUENZA, IIV3 PF (AGE >= 6 MO)03/28/2025,04/25/2024Influenza, IIV3 (Age >=3 years)02/26/2013,02/29/2012,03/24/2011,04/09/2010Influenza, ZKA514/05/2022, 04/02/2021,02/14/2020,02/23/2018,03/17/2017,03/24/2016,02/19/2015,02/28/2014 Influenza, IIV4 (=>6mos) MDV03/01/2019Influenza, Inactivated AIIV4 (Age 65+ Years) Preserv Free3Pneumococcal Poly,23-Valent (Pneumovax)10/28/2011 Pneumococcal conj 13-Valent (Prevnar 13)10/31/2013Tdap08/09/2021,10/28/2011 Tuberculin Skin Test, Djcsqwqrqlb94/09/2024Zoster (Shingrix-RZV, recombinant) 05/17/2018,02/24/2018Zoster (Zostavax-ZVL, live)05/17/2018,02/24/2018 Family History Medical HistoryRelationNameCommentsCancerFatherd.59. unknown typeOtherMaternal UncleLUPUSDiabetesMotherHypertensionMotherOtherMotherarthritis/LUPUSStrokeMother RelationNameStatusCommentsFatherDeceasedMaternal UncleMotherAlive Social History Tobacco UseTypesPacks/DayYears UsedDateSmoking Tobacco: NeverPassive Smoke Exposure: PastSmokeless Tobacco: Never Tobacco Cessation:Counseling Given: No Comments:Father smoked cigarettes Alcohol UseStandard Drinks/WeekCommentsNo0 (1 standard drink = 0.6 oz pure alcohol)PHQ-2AnswerDate RecordedPHQ-2 TOTAL ZODUQ357Social Connections AnswerDate RecordedDo you often feel lonely or isolated from those around you?4 04/02/2025Financial Resource StrainAnswerDate RecordedDifficulty of Paying Living Uankpftj746/21/2025Difficulty of Paying Living Jtpceooa272/21/2025Food InsecurityAnswerDate RecordedDo you worry your food will run out before you are able to buy more?Transportation NeedsAnswerDate RecordedDoes lack of transportation keep you from medical appointments?Does lack of transportation keep you from work, meetings or getting things that you need?2 04/02/2025Housing StabilityAnswerDate RecordedWhat is your housing situation today?Interpersonal SafetyAnswerDate RecordedAre you being hit, kicked, pushed or yelled at (see row info)?No03/17/2024Interpersonal Safety Abuse 12 - 18Not on file03/17/2024Interpersonal Safety Ambulatory Vulnerability Not on file03/17/2024UtilitiesAnswerDate RecordedDo you have trouble paying for utilities (for example, heat, electricity, water, phone)?Sex and Gender InformationValueDate RecordedSex Assigned at [facility]ham30/11/2021 10:01 PM CDTLegal TgkXmzw3706/26/2012 5:24 AM CSTGender IdentityNot on fileSexual OrientationNot on file Last Filed Vital Signs Vital SignReadingTime TakenCommentsBlood Xybimysf122/43107/08/2024 11:34 AM HUMAN RESOURCES PARTNER Pagaj6781 11:34 AM SSISumuvlicoqz46.7 ??C (98.1 ??F)03/28/2025 9:57 AM CDTRespiratory Onkt221503/08/2025 11:00 AM CDTOxygen Jfnfwqtmju48%05/08/2025 11:34 AM CSTInhaled Oxygen Concentration--Mkjihv98.6 kg (160 lb)04/22/2025 11:39 AM CSTPer vwgygvrOiwfuy752.1 cm (5' 5)03/08/2025 6:30 AM CDTBody Mass Index26.63 03/08/2025 6:30 AM CDT Plan of Treatment DateTypeDepartmentCare Team (Latest Contact Info)Fguufyqufhm28/09/2026 10:30 AM CSTOrders Only [facility] [address] [place] [address] Lab, [place] 07/10/2025 10:25 AM CSTOffice Visit [facility] [address] [place] [address] Votel, Truong Tom MD [address] [place] [address] Health MaintenanceDue DateLast DoneCommentsRSV vaccine for adults or (1 - Risk 50-74 years 1-dose series)2016Pneumococcal series for age 50+ (3 of 3 - PCV20 or PCV21), 10/28/2011COVID-19 vaccine series (2024- season), 09/28/2023, 03/28/2023, Additional history existsFecal testing sDNA-FIT (Cologuard) for age 45-75006/25/2025 06/25/2022epression screening for age 12+6010/10/2024, 10/10/2024, 10/02/2024, Additional history existsBMI (ht and wt on same day) for age 18+ , 09/28/2023, 08/23/2023, Additional history existsLipids for age 45-, 09/28/2023, 06/21/2022, Additional history existsTetanus oorwdna86/09/2021, 10/28/2011HIV for age 15-65Completed 07/03/2012Hepatitis C screening for age 18-10Uiiywmumi89/21/2013Hepatitis B series for 19+Jqypoxzqb09/07/2013, 01/17/2013, 10/16/2012Zoster (shingles) series for age 50+Vqxllpzhm48/05/2018, 05/17/2018, 02/24/2018, Additional history existsInfluenza PtxfobzHdymhwzbb31/16/2025, 04/25/2024, 04/05/2023, Additional history exists Medical Devices ImplantedTypeAreaManufacturerDevice IdentifierShelf Expiration DateModel / Serial / LotShunt System 15cm Stra [id number] Nmtneuroscie - [id number] Implanted:Qty[facility] [employer] [id number] / / [id number] Vasc 6x40mm 60cm Propaten - [id number] Implanted:Qty: 1 on 03/16/2024 by Luke Collado MD at [facility]: Sina Carlson10/30/[id number] / [id number] / Lead Kit 4.32mm Spacing 28cm Length Interstim - [id number] Implanted:Qty: 1 on 02/14/2025 by Lilian [facility]ilar [facility]tronic Pain Fvhpxnm11/26/[id number] / / [id number] Perk Ext 4.32mm Interstim Lead Implanted:Qty: 1 on 02/14/2025 by Lilian Aguialr MD at [id number] / / [id number]:Cable Perk Ext 4.32mm Interstim LeadSys Interstim X Surescan Mri Lead And Smart Esthetician Facialist - [id number] Implanted:Qty: 1 on 03/08/2025 by Lilian Aguilar MD at [facility] Pain Nygduol67/28/[id number] / [id number] / Procedures Procedure NamePriorityDate/TimeAssociated DiagnosisCommentsBASIC METABOLIC PANEL Mvbvtpt4705/01/2025 11:25 AM HUMAN RESOURCES PARTNER HTN (hypertension) PROTIME-HITHenoibp58/19/2025 11:25 AM HUMAN RESOURCES PARTNER Anti-phospholipid syndrome (HC) Anticoagulation monitoring, INR range 2-3 Pulmonary embolism of left lung (HC) History of DVT (deep vein thrombosis) US ARTERIAL LOWER EXTREMITY W ROMEO XUIJXRdeuqmp95/10/2025 10:48 AM HUMAN RESOURCES PARTNER PAD (peripheral artery disease) PROTIME-UWPLbxvhax07/31/2025 1:58 PM CDT Anti-phospholipid syndrome (HC) Anticoagulation monitoring, INR range 2-3 Pulmonary embolism of left lung (HC) History of DVT (deep vein thrombosis) PROTIME-HCIVbvcmed48/16/2025 9:52 AM CDT Anticoagulation monitoring, INR range 2-3 HEMOGLOBIN A1C MONITORING (POCT)Rwanssy9703/28/2025 9:52 AM CDT Type 2 diabetes mellitus with diabetic neuropathy, without long-term current use of insulin (HC) PLATELET MBVHJOFQV17/03/2025 10:32 AM CDT Anti-phospholipid syndrome (HC) Anticoagulation monitoring, INR range 2-3 Pulmonary embolism of left lung (HC) History of DVT (deep vein thrombosis) PROTIME-AEZAkjigtq39/03/2025 10:32 AM CDT Anti-phospholipid syndrome (HC) Anticoagulation monitoring, INR range 2-3 Pulmonary embolism of left lung (HC) History of DVT (deep vein thrombosis) SCAN-LABORATORY MWDTYM7303/12/2025 12:00 AM CDT INR,VWQJNghabnc45/30/2025 GLUCOSE AJFJGRfjmu56/26/2025 9:10 AM CDT IMPLANT SACRAL LEAD STAGE TWOTier 2: within 30 days03/08/2025 7:14 AM CDT Overactive bladder, Full incontinence of feces Case Notes JOSE GABRIELLEPAMELA [employer] NOTIFIED FOR CASE ON THE 729 START TIME GLUCOSE HRGOVRteql66/26/2025 7:00 AM CDT SCAN-CARDIAC STRIP03/08/2025 12:00 AM CDT SCAN-LABORATORY FLOFMP0003/05/2025 12:00 AM CDT SCAN-LABORATORY OGDNUZ1002/26/2025 12:00 AM CDT PLATELET MSKUBPNLD59/15/2025 2:57 PM CDT Anti-phospholipid syndrome (HC) Anticoagulation monitoring, INR range 2-3 history of Pulmonary embolism History of DVT (deep vein thrombosis) LIPID PANEL W REFLEX MEASURED EQKPzgcayp83/17/2025 10:34 AM CDT Type 2 diabetes mellitus with diabetic neuropathy, without long-term current use of insulin (HC) SDNA-FIT EXTERNAL (COLOGUARD)Myibaky4906/25/2022 7:30 AM HUMAN RESOURCES PARTNER Screening for colon cancer EXPOSURE (BBF) RAPID WDLPnumntm65/21/2013 2:24 PM HUMAN RESOURCES PARTNER Needle Stick Injury EXPOSURE (BBF) ANTI VDARanytxo72/21/2013 2:24 PM HUMAN RESOURCES PARTNER Needle Stick Injury from Last 3 Months or Most Recently Relevant to Health Maintenance Results * (ABNORMAL) PROTIME-INR [62236.0] - Standing Order (05/01/2025 11:25 AM HUMAN RESOURCES PARTNER) Only the most recent of4 resultswithin the time period is included. ComponentValueRef RangeTest MethodAnalysis TimePerformed AtPathologist Signature INR3.1(H)<1.311 3:39 PM [facility]STJE[facility] DYVKJWY90.1(H)10.6 - 12.4 sec05/01/2025 3:39 PM [facility]STWO[facility]LA[facility] LABORATORYSpecimen (Source)Anatomical Location / LateralityCollection Method / VolumeCollection TimeReceived TimeBloodBLOOD SPECIMEN / UnknownQuest Collect / Fbesqqd5505/01/2025 11:25 AM CST05/01/2025 11:25 AM HUMAN RESOURCES PARTNER Narrative [facility] - 05/01/2025 3:39 PM HUMAN RESOURCES PARTNER Therapeutic Range 2.0-3.0 for most anticoagulated patients 2.5-3.5 or 4.0 for high risk patients The INR is only used for patients on stable oral anticoagulant therapy. It makes no significant contribution to the diagnosis or treatment of patients whose Protime is prolonged for other reasons. INR results are increased when heparin levels exceed 1.0 U/mL, which corresponds to an aPTT >125seconds if the patient is on UFH. Authorizing ProviderResult TypeResult StatusWilliam Negro Carpio MDHEMATOLOGY Final ResultPerforming OrganizationAddressCity/State/ZIP CodePhone Number [facility] [address] [place] [address], * (ABNORMAL) BASIC METABOLIC PANEL (05/01/2025 11:25 AM HUMAN RESOURCES PARTNER)ComponentValueRef RangeTest MethodAnalysis TimePerformed AtPathologist DuxtuomovHNZSGI144062 - 146 mmol/L107/02/2024 6:20 AM CSTQUEST DIAGNOSTICSPOTASSIUM4.43.5 - 5.3 mmol/L 05/02/2025 6:20 AM CSTQUEST DIAGNOSTICSCARBON JZBAPIQ5202 - 32 mmol/L 05/02/2025 6:20 AM CSTQUEST JIZYTHCVUVWVSTCQSZ808(H)65 - 99 mg/dL05/02/2025 6:20 AM CSTQUEST DIAGNOSTICSComment: ? Fasting reference interval For someone without known diabetes, a glucose value between 100 and 125 mg/dL is consistent with prediabetes and should be confirmed with a follow-up test. NITSXQP48.08.6 - 10.3 mg/dL05/02/2025 6:20 AM CSTQUEST DIAGNOSTICSCREATININE0.89 0.70 - 1.30 mg/dL05/02/2025 6:20 AM CSTQUEST DIAGNOSTICSBUN/CREATININE RATIOSEE NOTE:6 - 22 (calc)05/02/2025 6:20 AM CSTQUEST DIAGNOSTICSComment: ?? Not Reported: BUN and Creatinine are within ?? reference range. ? EGFR99> OR = 60 mL/min/1.28y78705/02/2025 6:20 AM CSTQUEST DIAGNOSTICSUREA NITROGEN (BUN)147 - 25 mg/dL05/02/2025 6:20 AM CSTQUEST DIAGNOSTICSELECTROLYTE JAZPNOK902 - 17 mmol/L (calc)05/02/2025 6:20 AM CSTQUEST QAIZKGFCMGWMSMKJMBJ038 98 - 110 mmol/L107/02/2024 6:20 AM CSTQUEST DIAGNOSTICSSpecimen (Source) Anatomical Location / LateralityCollection Method / VolumeCollection Time Received TimeBloodBLOOD SPECIMEN / UnknownQuest Collect / Tvnjfsy4105/01/2025 11:25 AM CST05/01/2025 11:25 AM HUMAN RESOURCES PARTNER Narrative Authorizing ProviderResult TypeResult StatusWilliam Negro Carpio MDCHEMISTRY Final ResultPerforming OrganizationAddressCity/State/ZIP CodePhone Number [facility] [address] [place] [address], [place] [phone] * US ARTERIAL LOWER EXTREMITY W ROMEO RIGHT (04/22/2025 10:48 AM HUMAN RESOURCES PARTNER)Anatomical RegionLateralityModalityLEG RUltrasoundSpecimen (Source)Anatomical Location / LateralityCollection Method / VolumeCollection TimeReceived Time04/22/2025 9:31 AM HUMAN RESOURCES PARTNER Narrative 04/22/2025 2:49 PM HUMAN RESOURCES PARTNER VASCULAR ULTRASOUND REPORT CHRISTIANO ALCANTARASILVANA Accession#: ?? [id number] : ?1965 ??Study Date: ?? 04/22/2025 9:31:59 AM Age: ?60 years ?? Tech: ? BSG Gender: M ?Referring MD: LUKE COLLADO [facility] Study performed: ?Lower extremity duplex US, (right), bypass graft ?evaluation, TBI, resting ROMEO. Indication for study: Follow-up known PAD, Follow-up SHIFT SUPERINTENDENT CAUSTIC CRESYLATE/stent/bypass TECHNIQUE: Lower/upper extremity arteries were examined per exam protocol by duplex ultrasound, color-flow andspectral Doppler. Peak systolic velocities (PSV), Doppler waveform quality, velocity ratios and vessel size in cm, were documented at protocol specific sites. Physiologic data including segmental pressures, ankle/brachial index (ROMEO), digit PPG recordings, laser Doppler flowmetry, transcutaneous oximetry, and digit temperatures were documented at sites per exam protocol and test requirements. IMPRESSION: 1. Resting ankle-brachial index is severely reduced on the right at 0.41. 2. Toe-brachial index is severely reduced on the right at 0.00. COMPARISON: Compared to prior study 04-09-2024, worsening ROMEO & TBI. FINDINGS: Right toe/brachial index indicates severe range. +--------+ + + RIGHT ?? Velocity cm/s Phasicity +--------+ + + PFA ? 133 ? monophasic +--------+ + + SFA DST ? 15 ? monophasic +--------+ + + GABBY PRX ? 15 ? monophasic +--------+ + + GABBY DST ? 14 ? monophasic +--------+ + + SHIFT SUPERINTENDENT CAUSTIC CRESYLATE DST ? 20 ? monophasic +--------+ + + ELO DST ?0 ? occluded ?? +--------+ + + DPA ? 10 ? monophasic +--------+ + + Criteria: Stenosis ?V. Ratio Mild <50% <2.0 Moderate 50-74% > or = 2.0 Severe 75-99% > or = 4.0 Occluded ?100% ?? no detectable flow Pressures +-----+ +--------+ + ? RIGHT (mmHg) ? LEFT (mmHg) +-----+ +--------+ + Index ?166 ? Brachial ?166 ? +-----+ +--------+ + 0.41 ? 68 ?SHIFT SUPERINTENDENT CAUSTIC CRESYLATE ? +-----+ +--------+ + 0.18 ? 30 ?DPA ? +-----+ +--------+ + 0.00 ? 0 ? Digit 1 ? +-----+ +--------+ + BYPASS GRAFT Right graft type: ENTRY LEVEL MANUFACTURING ENGINEER to SFA distal thigh. +---------+ + +--------+-----+ RIGHT ? Velocity cm/s Phasicity Stenosis Ratio +---------+ + +--------+-----+ INFLOW ? 105 ? monophasic ? +---------+ + +--------+-----+ PRX ANAST ?0 ? occluded ? +---------+ + +--------+-----+ PRX GRAFT ?0 ? occluded ? +---------+ + +--------+-----+ MID GRAFT ?0 ? occluded ? +---------+ + +--------+-----+ Sukhjinder Leal MD. Electronically signed on 04/22/2025 2:49:26 PM This study was performed and interpreted by a service accredited by the Intersocietal AccreditationCommission (IAC/Vascular), www.intersocietal.org/vascular Report generated by [employer]. ??Final ?? Procedure Note Sukhjinder Leal MD - 04/22/2025 VASCULAR ULTRASOUND REPORT CHRISTIANO JOHNS : 1965 Study Date: 04/22/2025 9:31:59 AM Age: 60 years Tech: NEVILLE Gender: M Referring MD: LUKE COLLADO [facility] Study performed: Lower extremity duplex US, (right), bypass graft evaluation, TBI, resting ROMEO. Indication for study: Follow-up known PAD, Follow-up SHIFT SUPERINTENDENT CAUSTIC CRESYLATE/stent/bypass TECHNIQUE: Lower/upper extremity arteries were examined per exam protocol by duplex ultrasound, color-flow and spectral Doppler. Peak systolic velocities(PSV), Doppler waveform quality, velocity ratios and vessel size in cm,were documented at protocol specific sites. Physiologic data includingsegmental pressures, ankle/brachial index (ROMEO), digit PPG recordings,laser Doppler flowmetry, transcutaneous oximetry, and digit temperatureswere documented at sites per exam protocol and test requirements. IMPRESSION: 1. Resting ankle-brachial index is severely reduced on the right at0.41. 2. Toe-brachial index is severely reduced on the right at 0.00. COMPARISON: Compared to prior study 04-09-2024, worsening ROMEO & TBI. FINDINGS: Right toe/brachial index indicates severe range. +--------+ + + RIGHT Velocity cm/s Phasicity +--------+ + + PFA 133 monophasic +--------+ + + SFA DST 15 monophasic +--------+ + + GABBY PRX 15 monophasic +--------+ + + GABBY DST 14 monophasic +--------+ + + SHIFT SUPERINTENDENT CAUSTIC CRESYLATE DST 20 monophasic +--------+ + + ELO DST 0 occluded +--------+ + + DPA 10 monophasic +--------+ + + Criteria: Stenosis V. Ratio Mild <50% <2.0 Moderate 50-74% > or = 2.0 Severe 75-99% > or = 4.0 Occluded 100% no detectable flow Pressures +-----+ +--------+ + RIGHT (mmHg) LEFT (mmHg) +-----+ +--------+ + Index 166 Brachial 166 +-----+ +--------+ + 0.41 68 SHIFT SUPERINTENDENT CAUSTIC CRESYLATE +-----+ +--------+ + 0.18 30 DPA +-----+ +--------+ + 0.00 0 Digit 1 +-----+ +--------+ + BYPASS GRAFT Right graft type: ENTRY LEVEL MANUFACTURING ENGINEER to SFA distal thigh. +---------+ + +--------+-----+ RIGHT Velocity cm/s Phasicity Stenosis Ratio +---------+ + +--------+-----+ INFLOW 105 monophasic +---------+ + +--------+-----+ PRX ANAST 0 occluded +---------+ + +--------+-----+ PRX GRAFT 0 occluded +---------+ + +--------+-----+ MID GRAFT 0 occluded +---------+ + +--------+-----+ Sukhjinder Leal MD. Electronically signed on 04/22/2025 2:49:26 PM This study was performed and interpreted by a service accredited by the Intersocietal Accreditation Commission (IAC/Vascular), www.intersocietal.org/vascular Report generated by McPhy. Final Authorizing ProviderResult TypeResult StatusSenthil Hiram Collado MDUSFinal Result * (ABNORMAL) HEMOGLOBIN A1C MONITORING (POCT) (03/28/2025 9:52 AM CDT)Component ValueRef RangeTest MethodAnalysis TimePerformed AtPathologist SignaturePOC HEMOGLOBIN A1C7.3(H)<6.0 % OF TOTAL HGB1 10:01 AM [facility]ITALComment: Any point of care results exhibiting inconsistency with the patient's clinical status should be repeated using a different testing method. Specimen (Source)Anatomical Location / LateralityCollection Method / Volume Collection TimeReceived TimeBloodBLOOD SPECIMEN / UnknownQuest Collect / Unknown 03/28/2025 9:52 AM CDT1 9:52 AM CDT Narrative Authorizing ProviderResult TypeResult StatusWilldenisha Carpio MDCHEMISTRY Final ResultPerforming OrganizationAddressCity/State/ZIP CodePhone Number [facility] [address] [place] [address], [place] [phone] [facility] [address] [place] [address], [place] [phone] * (ABNORMAL) STAT - PLATELET COUNT [81211.2] - Standing Order (03/15/2025 10:32 AM CDT) Only the most recent of2 resultswithin the time period is included. ComponentValueRef RangeTest MethodAnalysis TimePerformed AtPathologist Signature PLATELET QFCVR822(H)140 - 440 thou/cu mm03/15/2025 3:24 PM [facility] AYORMVOARGXNH87.2(H)6.5 - 11.0 fL03/15/2025 3:24 PM [facility]-CEN[facility] LABORATORYSpecimen (Source)Anatomical Location / LateralityCollection Method / VolumeCollection TimeReceived TimeBloodBLOOD SPECIMEN / UnknownQuest Collect / Adlnzky0503/15/2025 10:32 AM CDT1 10:32 AM CDT Narrative Authorizing ProviderResult TypeResult StatusTruong Carpio MDHEMATOLOGY Final ResultPerforming OrganizationAddressCity/State/ZIP CodePhone Number [facility] [address] [place] [phone], [place] * SCAN-LABORATORY REPORT (03/12/2025 12:00 AM CDT) Only the most recent of3 resultswithin the time period is included. Narrative Authorizing ProviderResult TypeResult StatusScannerOTHERFinal Result * (ABNORMAL) INR,POCT (03/12/2025)ComponentValueRef RangeTest MethodAnalysis TimePerformed AtPathologist SignatureINR1.3(EXTERNAL)0.0 - 1.2AUNIVERSITY OF NEW MEXICO HOSPITALSpecimen (Source)Anatomical Location / LateralityCollection Method / VolumeCollection TimeReceived TimeBloodBLOOD SPECIMEN / Unknown 03/12/2025 Narrative Authorizing ProviderResult TypeResult StatusTruong Carpio MDLABORATORY Final ResultPerforming OrganizationAddressCity/State/ZIP CodePhone Number [facility] [address] [place] [address], [place] [phone] * (ABNORMAL) GLUCOSE METER (03/08/2025 9:10 AM CDT) Only the most recent of2 resultswithin the time period is included. ComponentValueRef RangeTest MethodAnalysis TimePerformed AtPathologist Signature GLUCOSE RXKVJ655(H)65 - 100 mg/dL03/08/2025 9:15 AM CDRIVERSIDE [facility] LABORAT[facility] CENTRAL LABORATORYSpecimen (Source)Anatomical Location / LateralityCollection Method / VolumeCollection TimeReceived TimeBloodBLOOD SPECIMEN / Unknown 03/08/2025 9:10 AM CDT03/08/2025 9:15 AM CDT Narrative Authorizing ProviderResult TypeResult StatusEmma Bacharach MDCHEMISTRYFinal ResultPerforming OrganizationAddressCity/State/ZIP CodePhone Number [facility] [address] [place] [address], * SCAN-CARDIAC STRIP (03/08/2025 12:00 AM CDT) Narrative 03/08/2025 12:00 AM CDT Ordered by an unspecified provider. Authorizing ProviderResult TypeResult StatusOther Clinical StaffOTHERFinal Result * LIPID PANEL W REFLEX MEASURED LDL (09/27/2024 10:34 AM CDT)ComponentValueRef RangeTest MethodAnalysis TimePerformed AtPathologist SignatureCHOLESTEROL, VWOKG104<200 mg/dLEngineering Ideas DaleHDL MXMYSICYDWE73> OR = 40 mg/dL [employer] GupgJQSOSUXSMDFWO649<150 mg/dLRockola Media GroupeLDL-ALIVONYPCJL04zk/dL (calc)Engineering Ideas DaleComment: Reference range: <100 Desirable range <100 mg/dL for primary prevention; <70 mg/dL for patients with CHD or diabetic patients with > or = 2 CHD risk factors. LDL-C is now calculated using the William-Alexandre calculation, which is a validated novel method providing better accuracy than the Friedewald equation in the estimation of LDL-C. William SS et al. ABBIE. 2013;310(19): 1612-9784 (http://education.BiggerBoat/faq/YVM775) CHOL/HDLC RATIO3.5<5.0 (calc)[employer]ariPhy Communications DaleNON HDL TJFNFOLJZBP093 <130 mg/dL (calc)Rockola Media GroupeComment: For patients with diabetes plus 1 major ASCVD risk factor, treating to a non-HDL-C goal of <100 mg/dL (LDL-C of <70 mg/dL) is considered a therapeutic option. Specimen (Source)Anatomical Location / LateralityCollection Method / Volume Collection TimeReceived TimeBloodBLOOD SPECIMEN / Wazixrw4809/27/2024 10:34 AM CDT 09/27/2024 10:36 AM CDT Narrative [facility] - 09/28/2024 5:24 AM CDT FASTING:NO FASTING: NO Authorizing ProviderResult TypeResult StatusWiian Carpio MDCHEMISTRY Final ResultPerforming OrganizationAddressCity/State/ZIP CodePhone Number [facility] [address] [place] [address], [facility] [address] [place] [address] * SDNA-FIT EXTERNAL (COLOGUARD) (06/25/2022 7:30 AM HUMAN RESOURCES PARTNER)ComponentValueRef Range Test MethodAnalysis TimePerformed AtPathologist SignatureNONINV COLON CA DNA+OCC BLD SCRN STL-TSTBobwwvvhCpqzhrgc03/18/2023 7:11 PM CSTEXZenRobotics (CLIA #:[id number])Comment: NEGATIVE TEST RESULT. A negative Cologuard result indicates a low likelihood that a colorectal cancer (CRC) or advanced adenoma (adenomatous polyps with more advanced pre-malignant features) ??is present. The chance that a person with a negative Cologuard test has a colorectal cancer is less than 1in 1500 (negative predictive value >99.9%) or has an advanced adenoma is less than 5.3% (negative predictive value 94.7%). These data are based on a prospective cross-sectional study of 10,000individuals at average risk for colorectal cancer who were screened with both Cologuard and colonoscopy. (Rosario Almanzar. et al, N Engl J Med 2014;370(14):1984-2519) The normal value (reference range) for this assay is negative. COLOGUARD RE-SCREENING RECOMMENDATION: Periodic colorectal cancer screening is an important part ofpreventive healthcare for asymptomatic individuals at average risk for colorectal cancer. ??Following a negative Cologuard result, the [place] [employer] Society and U.S. Multi-Society Task Force screening guidelines recommend a Cologuard re-screening interval of 3 years. References: [place] [employer] Guideline for Colorectal Cancer Screening: https://www.cancer.or g/cancer/sbuxp-fjhvsu-uwpgxp/wfevqhxkx-fiytrnhau-slznfpb/acs-recommendations.htm kofi; Beltran BRODERICK, Jessica NIELSON, Nesha GIBSON, Colorectal Cancer Screening: Recommendations for Physicians and Patients from the U.S. Multi-Society Task Force on Colorectal Cancer Screening , Am J Gastroenterology 2017; 112:6063-4639. TEST DESCRIPTION: Composite algorithmic analysis of stool DNA-biomarkers with hemoglobin immunoassay. ?? Quantitative values of individual biomarkers are not reportable and are not associated with individual biomarker result reference ranges. Cologuard is intended for colorectal cancer screening ofadults of either sex, 45 years or older, [...] (Rosario Basurto al, N Engl J Med 2014;370(14):6677-1935.) Cologuard may produce a false negative or false positive result (no colorectal cancer or precancerous polyp present at colonoscopy follow up). A negative Cologuard test result does not guarantee the absence of CRC or advanced adenoma (pre-cancer). The current Cologuard screening interval is every 3 years. ([place] [employer] Society and U.S. Multi-Society Task Force). Cologuard performance data in a 10,000 patient pivotal study using colonoscopy as the reference method can be accessed at the following location: www.Around Knowledge/results. Additional description of the Cologuard test process, warnings and precautions can be found at www.TalkLiferd.com. Specimen (Source)Anatomical Location / LateralityCollection Method / Volume Collection TimeReceived TimeStool specimen (specimen) (Rectum)06/25/2022 7:30 AM CST06/26/2022 2:04 PM HUMAN RESOURCES PARTNER Narrative Authorizing ProviderResult TypeResult StatusSherri Mesha Escamilla DOURINEFinal ResultPerforming OrganizationAddressCity/State/ZIP CodePhone Number [employer] (CLIA #:[id number]) [place] [address], * PATIENT SOURCE RAPID HIV (07/03/2012 2:24 PM HUMAN RESOURCES PARTNER)ComponentValueRef RangeTest MethodAnalysis TimePerformed AtPathologist SignatureSOURCE RAPID HIV SCREEN Non-reactive(Nonreactive)[facility] (Source) Anatomical Location / LateralityCollection Method / VolumeCollection Time Received TimeBlood specimen (specimen)BLOOD SPECIMEN / Zgnaqxn8007/03/2012 2:24 PM CST07/03/2012 2:19 PM HUMAN RESOURCES PARTNER Narrative Authorizing ProviderResult TypeResult StatusSherri Mesha Oetken DOSEND OUTSFinal ResultPerforming OrganizationAddressCity/State/ZIP CodePhone Number [facility] INTERNAL [address]IP [phone] [place] [phone] * PATIENT SOURCE ANTI HCV (07/03/2012 2:24 PM HUMAN RESOURCES PARTNER)ComponentValueRef RangeTest MethodAnalysis TimePerformed AtPathologist SignatureSOURCE ANTI HCV Non-reactiveABGillette Children's [facility]ty [facility] (Source)Anatomical Location / LateralityCollection Method / VolumeCollection TimeReceived TimeBlood specimen (specimen)BLOOD SPECIMEN / Xweuxmp6307/03/2012 2:24 PM CST07/03/2012 2:19 PM HUMAN RESOURCES PARTNER Narrative Authorizing ProviderResult TypeResult StatusSherri Mesha Oetken DOSEND OUTSFinal ResultPerforming OrganizationAddressCity/State/ZIP CodePhone Number [facility] INTERNAL ZIP [address] [place] [address] from Last 3 Months or Most Recently Relevant to Health Maintenance Additional Health Concerns InfectionOnset DateLast IndicatedMDRO Clearance Comment:Hx MDRO 03/18/2024 Insurance * Guarantor: Christiano Johns TypeRelation to PatientDate of BirthPhone Billing AddressPersonal/HfpizwZlnx1965 [address] [place] [address] * Guarantor: Sachinsilvana Christiano Maynor TypeRelation to PatientDate of BirthPhone Billing AddressWorkers JjpeFgnj1965 [phone] [place] [address] Advance Directives TypeDate RecordedPatient RepresentativeExplanationPOLST10/10/2023Healthcare Directive11/22/2017 10:42 AMINCOMPLETEPOLST10/18/2017 11:33 AMExpired 10/18/2023OLST 07/25/2013 10:41 AMExpired 10/18/2023Healthcare Directive06/25/2013 10:46 AM Healthcare Directive & POA * Full Code (Latest Code Status on File) Date ActivatedDate InactivatedComments03/08/2025 5:53 AM03/08/2025 1:47 PMQuestion AnswerCommentsCode Status Discussion:* Not Discussed * Full Code Date ActivatedDate InactivatedComments02/14/2025 8:53 AM02/14/2025 9:33 PMQuestion AnswerCommentsCode Status Discussion:* Unable to Assess Preferences, Provider to review later * Full Code Date ActivatedDate OdaniuwzyqeOolovwoi84/4/2024 8:15 AM03/21/2024 11:59 AM QuestionAnswerCommentsCode Status Discussion:* Unable to Assess Preferences, Provider to review later * Full Code Date ActivatedDate InactivatedComments03/02/2024 2:51 PM03/03/2024 4:20 PMQuestion AnswerCommentsCode Status Discussion:* Reviewed Preferences * Full Code Date ActivatedDate InactivatedComments12/21/2018 1:47 PM12/22/2018 1:13 PM Care Teams Team MemberRelationshipSpecialtyStart DateEnd Date Votel, Truong Tom MD [address] [place] [address] PCP - GeneralFamily Practice10/25/23 Henry Mckeon MD Consulting PhysicianRadiology - Kljtchfqmo40/4/13 Other-None . Care CoordinatorRegistered Nurse06/07/13 Jose Flower MD . Consulting PhysicianSurgery - General07/25/13 Emmanuel Foy MD . Hematology and Oncology10/11/13 [place] [address] [address] [address] OphthalmologyOptometrist10/07/16 Dg Del Castillo MD [address] [place] [address] Obsxkqcxspta05/19/23
== END 2025-05-21 10:33 | disposition home or self-care (01) ==
LOC: NPINS 10:32
PROVIDERS: PCP Family Medicine; Visit Provider Family Medicine
DX: I48.91 Unspecified atrial fibrillation (principal); Z79.01 Long term (current) use of anticoagulants
CPT/HCPCS: 85610